=== PATIENT | male | born 1945 | race Caucasian/White ===

== ENCOUNTER 2024-10-19 16:42 | Emergency (ER) | payer MEDICARE, SELFPAY ==
[2024-10-19] VITALS (22 sets, daily range): BP systolic 107–146; BP diastolic 57–101; PULSE 67–96; RESP 12–20; O2SAT 93–99
--- NOTE | ~2024-10-19 | XR_ITS ---
XR chest 1V portable Ordering provider: Juma Mosher MD History: 79 years Male with . cough/ syncope episode . Comparison: None. FINDINGS: MEDIASTINUM: The cardiac silhouette is not enlarged. LUNGS: No infiltrates, effusions or pneumothorax. OTHER: No free air under the diaphragm. IMPRESSION: No acute cardiopulmonary pathology. Reviewed, dictated and finalized at location A.
--- NOTE | 2024-10-19 17:07 | ED.GENADULT ---
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 Took a nausea medicine just before going to [facility]ecost[employer] today and also took a oxycodone 5 before pentecost[facility]ism while in [employer]ecost[employer] she felt weak warm nauseated felt like he had to sit down and then he passed out the next thing he remembered there are people all around him. Denies any urinary fecal incontinence or any seizure. He denies any injury evidently he was sitting at the time. Denies any pain shortness of breath. Denies problems voiding or stooling bleeding or bruising rash or itching swelling lumps or bumps shortness of breath. He said he has had a cold for the last week with a runny nose and a nonproductive cough he has had decreased appetite he says his doctor has been wanting to him to drink a gal of water a day but he has only had about half that amount. He has had decreased appetite he did eat breakfast today. he takes the oxycodone for back pain he had a little aching in his neck before he passed out. Denies any headache. Denies any other complaints. Past medical history prostate cancer with metastases hypertension diabetes (no history of heart lung kidney liver thyroid diseases or anemia. ) Related Data Allergies Allergy/AdvReac Type Severity Reaction Status Date / Time nickel Allergy Unknown Unknown Verified 10/19/24 16:47 Chlorine Allergy Unknown Unknown Uncoded 10/19/24 16:47 Review of Systems Review of Systems: All systems reviewed & are unremarkable except as noted in HPI and below Exam Narrative: White male patient with no apparent distress.? Head normocephalic, atraumatic.? Eyes conjunctiva pink sclera nonicteric.? Extraocular movements are intact.? Ears externally normal.? Oropharynx is clear with moist mucous membranes without exudates.? Neck is supple nontender no lymphadenopathy.? Back is nontender.? Lungs are clear.? Heart is regular rate and rhythm without murmurs gallops or rubs.? Chest wall nontender. Abdomen is soft and nontender no hepatosplenomegaly or masses no CVA tenderness no abdominal bruits.? Extremities no cyanosis clubbing or edema.? Skin is warm and dry without rashes or lesions.? Neurological patient is alert and oriented x4.? Motor and sensory grossly intact.? Gait is normal. Course Vital Signs Vital signs: Vital Signs Pulse Oximetry 99 10/19/24 16:42 Oxygen Delivery Room Air 10/19/24 16:42 Pulse Rate 89 10/19/24 18:46 Respiratory Rate 18 10/19/24 18:46 Blood Pressure 129/73 10/19/24 18:46 Pulse Oximetry 96 10/19/24 18:46 Oxygen Delivery Room Air 10/19/24 16:42 Medical Decision Making MDM Narrative Medical decision making narrative: Patient was placed in Room # 3 by EMS History and physical was performed. Independent Historian: EMS External Source Review: Differential Dx includes but not limited to: acute coronary syndrome arrhythmia vagal syncope electrolyte imbalance anemia Medications were Reviewed: Independently Interpreted by me: EKG shows sinus rhythm with occasional supraventricular premature complex no abnormal ST T wave abnormalities impression borderline EKG is independently interpreted by me. Meds, treatment, ED course: Unable to give Normal saline 1 L bolus Zofran 4 mg IV, attempts made unsuccessful. Also attempt made to get labs x3 patient refused those as well. Orthostatics showed systolic blood pressure dropped 20 points from lying to sitting but his pulse went down denies any dizziness. Social Situation Impacting Patients Care: prostate cancer with metastases recently started chemotherapy 4 days ago Shared decision Making: evaluation was discussed all questions were asked and answered patient agreed with the plan. patient feels better at discharge is encouraged uses Zofran anti nausea medicines more often and to push fluids at home return if he gets worse or develops any new symptoms. He also was encouraged to get a port for IV access. Discussed with Dr. BLACK DIAGNOSIS: Syncope dehydration DISPOSITION: discharge home CONDITION AT DISCHARGE: stable Vital Signs Vital Signs: Vital Signs Pulse Oximetry 99 10/19/24 16:42 Oxygen Delivery Room Air 10/19/24 16:42 Pulse Rate 89 10/19/24 18:46 Respiratory Rate 18 10/19/24 18:46 Blood Pressure 129/73 10/19/24 18:46 Pulse Oximetry 96 10/19/24 18:46 Oxygen Delivery Room Air 10/19/24 16:42 Lab Data Labs: Lab Results 10/19/24 Range/Units 17:07 Influenza A (RT-PCR) Negative (Negative) Influenza B (RT-PCR) Negative (Negative) RSV (RT-PCR) Negative (Negative) SARS-CoV-2 RNA (RT-PCR) Negative (Negative) Discharge Plan Discharge Clinical Impression: Syncope due to orthostatic hypotension, Dehydration Patient Disposition: Home Condition: Stable Instructions: Dehydration (ED), Syncope (ED) Additional Instructions: increase your fluids by mouth as discussed use your Zofran and her anti nausea medicine more often. Follow-up with your primary care provider next week. Recommend getting a port as previously discussed with your oncologist. Return if you get worse or develops any new symptoms. Patient Language: Congolese Follow-up/Referrals: Juan,J Luis Galaviz MD [Primary Care Provider] - Time of Disposition: 19:01
--- NOTE | 2024-10-19 17:08 | ECG_ITS ---
Test Date: 2024-10-19 17:19:58 Measurements Intervals Leroy Rate: 87 P: 66 [place]: 136 QRS: 63 QRSD: 84 T: 65 QT: 355 QTc: 428 Interpretive Statements SINUS RHYTHM WITH OCCASIONAL SUPRAVENTRICULAR PREMATURE COMPLEXES BASELINE ARTIFACT- II, III, AVL, AVF, V3 BORDERLINE ECG No previous ECG available for comparison Electronically Signed On 10-19-2024 18:51:48 CDT by José Antonio Kimble D.O.
--- NOTE | 2024-10-19 17:24 | PC.NURSE ---
covid culture sent to lab
--- NOTE | 2024-10-19 17:41 | PC.NURSE ---
Patient was stuck 3 times by EMS for IV attempt, 2x by RN. Patient refuses anymore IV attempts, ERP made aware. Patient provided water to drink per ERP request.
--- OUTSIDE RECORDS SUMMARY | 2024-10-19 17:43 | XMS_ITS | Encounter Summary ---
Author Organization [facility] Address [address] [place] [address] Phone Care Team Providers Care Press Officer Name Role Phone Sukhdeep Martinez MD Primary Care Provider [phone] Stefano Hernandez MD Unavailable [phone] Pardeep Tapia MD Unavailable + [phone] Sidney Arias MD Unavailable [phone] Raad Ahuja MD Unavailable Encounter Details Date Type Department Care Team (Late st Contact Info) Description 10/16/2024 Orders Only [facility] Oncology [address] [place] [id number] Stefano Hernandez MD [address] [facility] [address] [place] [address] Social History Tobacco Use Types Packs/Day Years Used Date Smoking Tobacco: Former Cigarettes 2 25 S tarted: 1967 Passive Smoke Exposure: Past Smokeless Tobacco: Never [facility] Utilities Answer Date Recorded In the past 12 months has [employer], gas, oil, or water company threatened to shut off services in your home? No 09/09/2024 Social Connection and Isolation Panel [NHANES] A nswer Date Recorded In a typical week, how many times do you talk on the phone with family, friends, or neighbors? Three times a week 09/09/2024 How often do you get togethe r with friends or relatives? Three times a week 09/09/2024 How often do you attend chur ch or mosque services? Never 09/09/2024 Do you belong to any clubs o r organizations such as methodist groups, unions, fraternal or athletic groups, or school groups? No 09/09/2024 How often do you attend meet ings of the clubs or organizations you belong to? Never 09/09/2024 Are you , , di vorced, , never , or living with a partner? 09/09/2024 AUDIT-C Answer Date Recorded Q1: How often do you have a drink containing alcohol? Monthly or less 08/26/2024 Q2: How many drinks containi ng alcohol do you have on a typical day when you are drinking? Patient does not drink Q3: How often do you have si x or more drinks on one occasion? Never 08/26/2024 Overall Financial Resource Strain (CARDIA) Answe r Date Recorded How hard is it for you to pa y for the very basics like food, housing, medical care, and heating? Not hard at all 09/09/2024 Hunger Vital Sign Answer Date Recorded Within the past 12 months, y ou worried that your food would run out before you got the money to buy more. Never true 09/10/19 25 Within the past 12 months, t he food you bought just didn't last and you didn't have money to get more. Never true 09/09/2024 PRAPARE - Transportation Answer Date Re corded In the past 12 months, has l ack of transportation kept you from medical appointments or from getting medications? No 09/2024 In the past 12 months, has l ack of transportation kept you from meetings, work, or from getting things needed for daily living? No 09/09/2024 Housing Stability Vital Sign Answer Navin e Recorded In the last 12 months, was t here a time when you were not able to pay the mortgage or rent on time? No 09/09/2024 In the past 12 months, how m any times have you moved where you were living? 0 09/09/2024 [facility] were you homeless or living in a alf (including now)? No 09/09/2024 Personal Safety Answer Date Recorded Have you ever been in or are you currently in a harmful physical or emotional relationship or is someone making you feel afraid or unsafe? Denies 09/09/2024 Sex and Gender Information Value Date Recorded Sex Assigned at Not on file Legal Sex Male 1:04 PM [employer] Gender Identity Not on file Sexual Orientation Not on file documented as of this encounter Plan of Treatment Not on file documented as of this encounter Visit Diagnoses Not on filedocumented in this encounter Care Teams Press Officer Relationship Specialty Start Date End Date Sukhdeep Martinez MD [address] [facility] [place] [address] PCP - General Family Medicine 06/05/24 Stefano Hernandez MD [address] [facility], [facility] [address] [place] [address] Medical Oncologist/Machine Setter Medical Oncology 08/07/24 Pardeep Tapia MD [address] [facility] [address] [place] [address] Consulting Physician Urology 08/07/24 Sidney Arias MD [address] [facility] [address] [place], [place] [address] Radiation Oncologist Radiation Oncology 08/21/24 Raad Ahuja MD [address] [facility] [address] [place] [address] Consulting Physician Pain Management 09/20/24 documented as of this encounter
--- OUTSIDE RECORDS SUMMARY | 2024-10-19 17:43 | XMS_ITS | Referral Summary ---
Author Organization [place] [id number] [facility] Address [address] [place] [address] Care Team Providers Care Substation Engineer Name Role Phone Sukhdeep Martinez MD Primary Care Provider [phone] Stefano Hernandez MD Unavailable [phone] Pardeep Tapia MD Unavailable + [phone] Sidney Arias MD Unavailable [phone] Raad Ahuja MD Unavailable Encounters Date Type Department Care Team Description 10/16/2024 Orders Only [facility] Oncology [facility] [place] [address] Stefano Hernandez MD 10/16/2024 10:30 AM CDT Lab [facility] Lab [address] [place] [phone] Prostate cancer (HCC) 10/16/2024 10:45 AM CDT Infusion [facility] at [address] [place] [address] Prostate cancer (HCC) (Primary Dx) 10/16/2024 9:30 AM CDT Lab [facility] Oncology [address] [place] [phone] Prostate cancer (HCC) 10/16/2024 10:00 AM CDT Office Visit [facility] Oncology [facility] [place] [address] Stefano Hernandez MD Prostate cancer (HCC) (Primary Dx) 10/11/2024 Completion of Therapy [facility] Medical Office Building 2 Radiation Oncology [address] [place] [address] Sidney Arias MD 10/11/2024 Orders Only RAD ONC TREATMENTS Miscellaneous, Not In File 10/11/2024 OTV [facility] Medical Office Building 2 Radiation Oncology [address] [place] [address] Sidney Arias MD 10/11/2024 Orders Only RAD ONC TREATMENTS Miscellaneous, Not In File 10/11/2024 11:00 AM CDT Treatment [facility] Medical Office Building 2 Radiation Oncology [address] [place] [address] Sidney Arias MD 10/10/2024 Orders Only RAD ONC TREATMENTS Miscellaneous, Not In File 10/10/2024 11:00 AM CDT Treatment [facility] Medical Office Building 2 Radiation Oncology [address] [place] [address] 10/09/2024 Orders Only RAD ONC TREATMENTS Miscellaneous, Not In File 10/09/2024 1:00 PM CDT Treatment [facility] Medical Office Building 2 Radiation Oncology [address] [place] [address] 10/08/2024 Orders Only RAD ONC TREATMENTS Miscellaneous, Not In File 10/08/2024 11:00 AM CDT Treatment [facility] Medical Office Building 2 Radiation Oncology [address] [place] [address] 10/07/2024 Orders Only RAD ONC TREATMENTS Miscellaneous, Not In File 10/07/2024 11:15 AM CDT Treatment [facility] Medical Office Building 2 Radiation Oncology [address] [place] [address] Sidney Arias MD 10/07/2024 11:00 AM CDT Treatment [facility] Medical Office Building 2 Radiation Oncology [address] [place] [address] Sidney Arias MD 10/04/2024 Telephone [facility] Oncology [address] [place] [phone] Smita Taylor, YAMINI 10/03/2024 Telephone [facility] Oncology [address] [place] [phone] Smita Taylor, YAMINI 10/02/2024 7:05 PM CDT Treatment [facility] Medical Office Building 2 Radiation Oncology [address] [place] [address] 10/02/2024 Telephone [facility] Oncology [address] [place] [phone] Smita Taylor, YAMINI 10/01/2024 10:00 AM CDT Treatment [facility] Medical Office Building 2 Radiation Oncology [address] [place] [address] Sidney Arias MD 10/01/2024 9:30 AM CDT Office Visit [facility] Medical Office Building 2 Radiation Oncology [address] [place] [address] Sidney Arias MD Malignant neoplasm of prostate (HCC) (Primary Dx) 09/23/[address] [facility] [place] 2 Radiation Oncology [address] [place] [address] Sandy Tate RN 09/20/2024 Telephone [facility] Medical Office [facility] 2 Radiation Oncology [address] [place] [address] Kenna Pineda, ARRT 09/20/2024 8:10 AM CDT - 09/20/2024 11:59 PM CDT Hospital Encounter [facility] Pain [address] [address] Raad Ahuja MD Closed wedge compression fracture of T7 vertebra with routine healing (Primary Dx); Closed compression fracture of L2 lumbar vertebra, with routine healing, subsequent encounter Discharge Disposition: Discharge to home or self care 09/18/2024 Orders Only [facility] [place] [address] Stefano Hernandez MD 09/18/2024 9:45 AM CDT Lab [facility] Lab [address] [place] [address] Prostate cancer (HCC) 09/18/2024 9:30 AM CDT Lab [facility] Oncology [facility] [place] [phone] Metastasis to bone (HCC); Prostate cancer (HCC) 09/18/2024 11:30 AM CDT Infusion [facility] [place] [address] [place] [address] Prostate cancer (HCC) (Primary Dx) 09/18/2024 10:00 AM CDT Office Visit [facility] Oncology [facility] [place] [address] Stefano Hernandez MD Metastasis to bone (HCC) (Primary Dx); Prostate cancer (HCC) 09/12/2024 Telephone [facility] Oncology [address] [place] [phone] Millie Kim RMA When to start Nubeqa 09/08/2024 7:53 PM REINFORCEMENT MAKER - 09/11/2024 11:35 AM REINFORCEMENT MAKER Hospital Encounter [address] [address] Felipa Murphy DO Winston, Jared Todd, MD Elizondo, Daniel Elias, MD Chronic midline thoracic back pain (Primary Dx); Closed fracture of seventh thoracic vertebra, unspecified fracture morphology, initial encounter (HCC); Urinary tract infection without hematuria, site unspecified; Diagnosis unknown Discharge Disposition: Discharge to home or self care 09/10/2024 3:31 PM REINFORCEMENT MAKER Anesthesia Event [facility] OR [address] [place] [address] Miguel Angel Henderson MD Jobe, Jennifer R., CRNA 09/10/2024 3:30 PM REINFORCEMENT MAKER - 09/10/2024 5:05 PM REINFORCEMENT MAKER Surgery [facility] OR [address] [place] [address] Raad Ahuja MD KYPHOPLASTY - THORACIC 7 and LUMBAR 2, and Biopsy 09/09/2024 Telephone [facility] Oncology [address] [place] [phone] Azeem Bennett, [facility] 09/06/2024 9:30 AM REINFORCEMENT MAKER Consult [facility] Medical Office Building 2 Radiation Oncology [address] [place] [address] Sidney Arias MD Malignant neoplasm of prostate (HCC) 09/05/2024 Telephone [facility] Medical Office Building 2 Radiation Oncology [address] [place] [address] Julianne Chapin MA 09/05/2024 6:54 AM REINFORCEMENT MAKER - 09/05/2024 11:59 PM REINFORCEMENT MAKER Hospital Encounter [facility] Imaging and Radiology [address] [place], [place] [phone] Prostate cancer (HCC) Discharge Disposition: Discharge to home or self care 09/05/2024 12:00 PM REINFORCEMENT MAKER - 09/05/2024 11:59 PM REINFORCEMENT MAKER Hospital Encounter [facility] Nuclear Medicine [address] [place], [place] [phone] Stefano Hernandez MD Discharge Disposition: Discharge to home or self care 09/05/2024 9:00 AM REINFORCEMENT MAKER - 09/05/2024 11:59 PM REINFORCEMENT MAKER Hospital Encounter [facility] Nuclear Medicine [address] [place], [place] [phone] Prostate cancer (HCC) Discharge Disposition: Discharge to home or self care 08/30/2024 Telephone [facility] Oncology [address] [place] [phone] Smita Taylor RN 08/26/2024 9:45 AM REINFORCEMENT MAKER Lab [address] [address] Prostate cancer (HCC) 08/26/2024 Orders Only [facility] Oncology [address] [place] [phone] Stefano Hernandez MD 08/26/2024 8:00 AM REINFORCEMENT MAKER Office Visit [facility] Oncology [address] [place] [phone] Stefano Hernandez MD Prostate cancer (HCC) (Primary Dx); Metastasis to bone (HCC) 08/22/2024 Telephone [facility] Surgery [address] [place] [address] Darling Mckeon EMT 08/20/2024 Telephone [facility] Surgery [facility] [address] [place] [address] Trupti Ma 08/20/2024 Telephone [facility] Surgery [address] [place] [address] Leanna Miller 08/19/2024 11:20 AM REINFORCEMENT MAKER Lab [facility] Medical Office Building [address] [place] [address] Prostate cancer (HCC) 08/19/2024 Telephone [facility] Oncology [address] [place] [address] Floor [address] [place] [address] Julianne Talley 08/19/2024 10:40 AM REINFORCEMENT MAKER Office Visit [facility] Surgery [address] [place] [address] [address] [place] [address] Pardeep Tapia MD Prostate cancer (HCC) (Primary Dx) 08/09/2024 11:38 AM REINFORCEMENT MAKER - 08/09/2024 11:59 PM REINFORCEMENT MAKER Hospital Encounter [facility] - Imaging [address] [place] [address] Prostate mass; Elevated PSA Discharge Disposition: Discharge to home or self care 08/06/2024 Telephone [facility] Oncology [facility] Floor [address] [place] [address] Julianne Talley 07/30/2024 7:20 AM REINFORCEMENT MAKER - 07/30/2024 11:59 PM REINFORCEMENT MAKER Hospital Encounter [address] [address] Bladder mass Discharge Disposition: Discharge to home or self care 07/30/2024 7:30 AM REINFORCEMENT MAKER - 07/30/2024 9:15 AM REINFORCEMENT MAKER Surgery [facility] OR [address] [place] [address] [place] [address] Pardeep Tapia MD CYSTOSCOPY - TRANSURETHRAL RESECTION BLADDER TUMOR 07/30/2024 7:33 AM REINFORCEMENT MAKER Anesthesia [place] [facility] [place] [address] [place] [address] Kareem Rees MD Taylor-White, Carlotta A., NP 07/30/2024 5:33 AM REINFORCEMENT MAKER - 07/30/2024 1:50 PM REINFORCEMENT MAKER Hospital Encounter [facility] OR [address] [place] [address] Pardeep Tapia MD Prostate mass (Primary Dx); Bladder tumor; Elevated PSA Discharge Disposition: Discharge to home or self care 07/26/2024 Telephone [facility] Surgery [address] [place] [address] Darling Mckeon EMT from Last 3 Months Allergies Active Allergy Reactions Criticality Noted Date Comments Chlorine Hives Medium 07/30/2024 Nickel Rash Medium 07/30/2024 Medications amLODIPine (NORVASC) 5 mg tablet Take 1 tablet (5 mg total) by mouth daily 4 Active dutasteride (AVODART) 0.5 mg capsule Take 1 capsule (0.5 mg total) by mouth daily 4 Active losartan (COZAAR) 100 mg tablet Take 1 tablet (100 mg total) by mouth daily 4 Active metFORMIN (GLUCOPHAGE) 1,000 mg tablet Take 1 tablet (1,000 mg total) by mouth 2 (two) times a day 4 Active pravastatin (PRAVACHOL) 40 mg tablet Take 1 tablet (40 mg total) by mouth nightly 4 Active Januvia 100 mg tablet Take 1 tablet (100 mg total) by mouth daily 4 Active tamsulosin (FLOMAX) 0.4 mg extended release capsule Take 1 capsule (0.4 mg total) by mouth daily 4 Active timolol (TIMOPTIC) 0.5 % ophthalmic solution Administer 1 drop into both eyes daily 4 Active multivitamin with minerals tablet Take 1 tablet by mouth daily Active UNABLE TO FIND Take 1 each by mouth daily 1Med Name: Formulated once daily ultra probiotics 90 billion Active cholecalcifero l (VITAMIN D-3) 5,000 unit tablet Take 1 tablet (5,000 Units total) by mouth daily Active dexAMETHasone (DECADRON) 4 mg tabletIndicati ons:Prostate cancer (HCC) Take 2 tablets (8 mg total) by mouth 6 hours prior to chemotherapy and 2 tablets 8 hours after chemotherapy 30 tablet 5 Active darolutamide (NUBEQA) 300 mg tabletIndicati ons:Prostate cancer (HCC) Take 2 tablets (600 mg total) by mouth 2 (two) times a day Swallow whole. Take with food. 120 tablet 3 5 Active oxyCODONE (ROXICODONE) 5 mg immediate release tabletIndicati ons:Prostate cancer (HCC),Cancer related pain Take 1 tablet (5 mg total) by mouth every 6 (six) hours as needed for pain 120 tablet 5 Active calcium carbonate (OS-NIKKI) 1,500 mg (600 mg elemental) tablet Take 2 tablets (3,000 mg total) by mouth Active bicalutamide (CASODEX) 50 mg tabletIndicati ons:Prostate cancer (HCC) Take 1 tablet (50 mg total) by mouth daily 30 tablet 5 09/22/19 25 Active Problems Problem Noted Date Diagnosed Date Thoracic compression fracture, sequela Cancer associated pain 09/09/2024 Urinary tract infection without hematuria 2024 Closed fracture of seventh thoracic vertebra 09/2024 Chronic midline thoracic back pain 09/09/2024 Hypocalcemia 09/09/2024 Hypercalcemia 09/09/2024 Hyponatremia 09/09/2024 Thrombocytosis 09/09/2024 Stage 2 hypertension 09/09/2024 History of diabetes mellitus 09/09/2024 Normocytic hypochromic anemia 09/09/2024 Anemia of chronic disease 09/09/2024 History of prostate cancer 09/09/2024 Pathologic compression fracture of thoracic vert ebra 09/09/2024 Prostate cancer 08/26/2024 Cancer Staging:Clinical:Stage IVB(cM1c, PSA: 19.4, Grade Group: 5) - Signed by Sidney Arias MD on 09/06/2024 Metastasis to bone 08/26/2024 Prostate mass 07/30/2024 Bladder tumor 06/24/2024 Immunizations Immunization Administration Dates Next Due Influenza, Quadrivalent, Hig h Dose, Preservative Free, Intrr 05/31/2023,05/19/2021 Influenza, Quadrivalent, Split, Intramuscular Influenza, Trivalent, High D ose, Split, Preservative Free, Intramuscular 06/19/2019 Pneumococcal Conjugate PCV 13 06/19/2019 Pneumococcal Polysaccharide PPV23 09/15/2017 ZOSTER Recombinant 02/20/2023 Social History Tobacco Use Types Packs/Day Years Used Date Smoking Tobacco: Former Cigarettes 2 25 S tarted: 1967 Passive Smoke Exposure: Past Smokeless Tobacco: Never Tobacco Cessation:Counseling Given: Not Answered [facility] Utilities Answer Date Recorded In the past 12 months has th e [employer], gas, oil, or water [employer] threatened to shut off services in your [...] week 09/09/2024 How often do you attend [facility] ch or zoroastrianism services? Never 09/09/2024 Do you belong to any clubs o r organizations such as baptist groups, unions, fraternal or athletic groups, or [...] any time in the past 12 m [facility], were you homeless or living in a senior care (including now)? No 09/09/2024 Personal Safety Answer Date Recorded Have you ever been in or are you currently in a harmful physical or emotional relationship or is someone making you feel afraid or unsafe? Denies 09/09/2024 Sex and Gender Information Value Date Recorded Sex Assigned at Not on file Legal Sex Male 1:04 PM REINFORCEMENT MAKER Gender Identity Not on file Sexual Orientation Not on file Last Filed Vital Signs Vital Sign Reading Time Taken Comments Blood Pressure 151/78 10/16/2024 10:10 AM CDT Pulse 72 10/16/2024 10:10 AM CDT Temperature 36.3 C (97.4 F) 10/16/2024 10:10 AM CDT Respiratory Rate 18 10/16/2024 10:10 AM CDT Oxygen Saturation 97% 10/16/2024 10:10 AM CDT Inhaled Oxygen Concentration - - Weight 74 kg (163 lb 3.2 oz) 10/16/2024 11:09 AM CDT Height 169 cm (5' 6.54 ) 10/16/2024 11:09 AM CDT Body Mass Index 25.92 10/16/2024 11:09 AM CDT Plan of Treatment Not on file Medical Devices Implanted Type Area Brickmason Helper Device Identifier Shelf Expiration Date Model / Serial / Lot [employer] Vertaplex Hv Autoplex Without Needle Delivery System Kit Bone [id number] - [id number] Implanted:Qty: 1 on 09/10/2024 by Raad Ahuja MD at [facility] N/A: Thoracic- Lumbar Spine [employer] 10/08/2025 [id number] / / [id number] Description:Lumbar 2 and tho racic 7 Explanted Type Area Brickmason Helper Device Identifier Shelf Expiration Date Model / Serial / Lot [employer] Avamax Od13 [place] L10 Mm Balloon Tray Bone Cement [id number] - [id number] Explanted:Qty : 1 on 09/10/2024 by Raad Ahuja MD at [facility] N/A: Spine Lumbar [employer] [id number] 05/30/2025 [id number] / / [id number] [employer] Avamax Od13 Ga L10 Mm Balloon Tray Bone Cement [id number] - [id number] Explanted:Qty : 1 on 09/10/2024 by Raad Ahuja MD at [facility] N/A: Spine Lumbar [employer] [id number] 05/30/2025 [id number] / / [id number] Procedures Procedure Name Priority Date/Time Associated Diagnosis Comments EGFR Routine 10/16/2024 10:02 AM CDT Prostate cancer (HCC) DIFFERENTIAL AUTO Routine 10/16/2024 10: 02 AM CDT Prostate cancer (HCC) CBC WITH AUTO DIFFERENTIAL Routine 10/16/2024 10:02 AM CDT Prostate cancer (HCC) COMPREHENSIVE METABOLIC PANEL Routine 10/16/2024 10:02 AM CDT Prostate cancer (HCC) PSA DIAGNOSTIC Routine 10/16/2024 10:02 AM CDT Prostate cancer (HCC) RAD ONC ARIA COURSE SUMMARY 10/11/2024 3:53 PM CDT RAD ONC ARIA SESSION SUMMARY 10/11/2024 11:03 AM CDT RAD ONC ARIA SESSION SUMMARY 10/10/2024 11:17 AM CDT RAD ONC ARIA SESSION SUMMARY 10/09/2024 1:10 PM CDT RAD ONC ARIA SESSION SUMMARY 10/08/2024 11:03 AM CDT RAD ONC ARIA SESSION SUMMARY 10/07/2024 11:21 AM CDT EGFR STAT 09/18/2024 9:47 AM CDT Prostate cancer (HCC) DIFFERENTIAL AUTO Routine 09/18/2024 9:4 7 AM CDT Prostate cancer (HCC) COMPREHENSIVE METABOLIC PANEL STAT 09/18/2024 9:47 AM CDT Prostate cancer (HCC) PSA DIAGNOSTIC Routine 09/18/2024 9:47 AM CDT Prostate cancer (HCC) CBC WITH AUTO DIFFERENTIAL Routine 09/18/2024 9:47 AM CDT Prostate cancer (HCC) POCT GLUCOSE DEVICE Routine 09/10/2024 5 :59 PM REINFORCEMENT MAKER FL FLUOROSCOPY < 1 HOUR IP Routine 09/10/2024 5:45 PM REINFORCEMENT MAKER SURGICAL PATHOLOGY Routine 09/10/2024 4: 47 PM REINFORCEMENT MAKER Diagnosis unknown NC AN PROCEDURE PLACEHOLDER Routine 09/10/2024 4:15 PM REINFORCEMENT MAKER NC AN ELECTIVE ENDOTRACHEAL AIRWAY Routine 09/10/2024 4:15 PM REINFORCEMENT MAKER KYPHOPLASTY 09/10/2024 3:36 PM REINFORCEMENT MAKER POCT GLUCOSE DEVICE Routine 09/10/2024 3 :15 PM REINFORCEMENT MAKER MRI LUMBAR SPINE WO CONTRAST IP Routine 09/10/2024 1:49 PM REINFORCEMENT MAKER POCT GLUCOSE DEVICE Routine 09/10/2024 1 1:40 AM REINFORCEMENT MAKER INFLUENZA A/B, RSV, AND COVID-19 PCR STAT 09/10/2024 9:48 AM REINFORCEMENT MAKER POCT GLUCOSE DEVICE Routine 09/09/2024 7 :56 PM REINFORCEMENT MAKER PHOSPHORUS Routine 09/09/2024 6:46 PM REINFORCEMENT MAKER MAGNESIUM Routine 09/09/2024 6:[address] LUMBAR SPINE WO CONTRAST IP Routine 09/09/2024 6:[address] THORACIC SPINE WO CONTRAST IP Routine 09/09/2024 6:39 PM REINFORCEMENT MAKER POCT GLUCOSE DEVICE Routine 09/09/2024 4 :37 PM REINFORCEMENT MAKER INFECTION PREVENTION KIARA AURIS PCR, SURVEILLANCE STAT 09/09/2024 2:36 PM REINFORCEMENT MAKER POCT GLUCOSE DEVICE Routine 09/09/2024 1 1:52 AM REINFORCEMENT MAKER POCT GLUCOSE DEVICE Routine 09/09/2024 7 :57 AM REINFORCEMENT MAKER ECG 12-LEAD STAT 09/09/2024 7:26 AM REINFORCEMENT MAKER EGFR Routine 09/09/2024 6:10 AM REINFORCEMENT MAKER DIFFERENTIAL AUTO Routine 09/09/2024 6:1 0 AM REINFORCEMENT MAKER BASIC METABOLIC PANEL Routine 09/09/2024 6:10 AM REINFORCEMENT MAKER CBC WITH AUTO DIFFERENTIAL Routine 09/09/2024 6:10 AM REINFORCEMENT MAKER TROPONIN T HIGH-SENSITIVITY 4-HR Timed 09/09/2024 12:13 AM REINFORCEMENT MAKER TROPONIN T HIGH-SENSITIVITY 2-HOUR Timed 09/08/2024 10:10 PM REINFORCEMENT MAKER URINALYSIS, MICROSCOPIC ONLY STAT 09/08/2024 8:31 PM REINFORCEMENT MAKER URINE CULTURE STAT 09/08/2024 8:31 PM REINFORCEMENT MAKER URINALYSIS AND REFLEX TO MICROSCOPIC AND CULTURE STAT 09/08/2024 8:31 PM REINFORCEMENT MAKER EGFR STAT 09/08/2024 8:01 PM REINFORCEMENT MAKER DIFFERENTIAL AUTO STAT 09/08/2024 8:0 1 PM REINFORCEMENT MAKER TROPONIN T HIGH-SENSITIVITY SERIES (BASELINE, 2HR, 4HR, 6HR) STAT 09/08/2024 8:01 PM REINFORCEMENT MAKER COMPREHENSIVE METABOLIC PANEL STAT 09/08/2024 8:01 PM REINFORCEMENT MAKER CBC WITH AUTO DIFFERENTIAL STAT 09/08/2024 8:01 PM REINFORCEMENT MAKER NM BONE IMAGING WHOLE BODY Schedule Routine, Read Routine (OP Routine) 09/05/2024 2:44 PM REINFORCEMENT MAKER Prostate cancer (HCC) MRI THORACIC SPINE W WO CONTRAST Schedule Routine, Read Routine (OP Routine) 09/05/2024 9:42 AM REINFORCEMENT MAKER Prostate cancer (HCC) EGFR Routine 08/26/2024 10:56 AM REINFORCEMENT MAKER Prostate cancer (HCC) DIFFERENTIAL AUTO Routine 08/26/2024 10: 56 AM REINFORCEMENT MAKER Prostate cancer (HCC) CBC WITH AUTO DIFFERENTIAL Routine 08/26/2024 10:56 AM REINFORCEMENT MAKER Prostate cancer (HCC) COMPREHENSIVE METABOLIC PANEL Routine 08/26/2024 10:56 AM REINFORCEMENT MAKER Prostate cancer (HCC) PSA DIAGNOSTIC Routine 08/26/2024 10:56 AM REINFORCEMENT MAKER Prostate cancer (HCC) TOTAL TESTOSTERONE Routine 08/26/2024 10 :56 AM REINFORCEMENT MAKER Prostate cancer (HCC) TOTAL TESTOSTERONE Routine 08/19/2024 11 :56 AM REINFORCEMENT MAKER Prostate cancer (HCC) PET/CT PROSTATE CANCER PSMA SKULL TO THIGH Schedule Routine, Read Routine (OP Routine) 08/09/2024 1:29 PM REINFORCEMENT MAKER Prostate mass Elevated PSA US GUIDANCE INTRAOPERATIVE Schedule Routine, Read Routine (OP Routine) 07/30/2024 8:53 AM REINFORCEMENT MAKER Bladder mass POCT GLUCOSE DEVICE Routine 07/30/2024 8 :48 AM REINFORCEMENT MAKER SURGICAL PATHOLOGY Routine 07/30/2024 8: 21 AM REINFORCEMENT MAKER Bladder tumor NC AN PROCEDURE PLACEHOLDER Routine 07/30/2024 7:50 AM REINFORCEMENT MAKER NC AN ELECTIVE ENDOTRACHEAL AIRWAY Routine 07/30/2024 7:50 AM REINFORCEMENT MAKER TRANSANAL BIOPSY - PROSTATE 07/30/2024 7:33 AM REINFORCEMENT MAKER Bladder tumor CYSTOSCOPY - TRANSURETHRAL RESECTION BLADDER TUMOR 07/30/2024 7:33 AM REINFORCEMENT MAKER Bladder tumor POCT GLUCOSE DEVICE Routine 07/30/2024 6 :22 AM REINFORCEMENT MAKER from Last 3 Months Results * eGFR (10/16/2024 10:02 AM CDT) eGFR >90 >=60 mL/min/1. 73 m2 Comment: Interpretive Data Reference Interval Normal >/= 90 mL/min/1.73m2 Mildly decreased* 60 - 89 mL/min/1.73m2 Mildly to moderately decreased 45 - 59 mL/min/1.73m2 Moderately to severely decreased 30 - 44 mL/min/1.73m2 Severely decreased 15 - 29 mL/min/1.73m2 Kidney Failure < 15 mL/min/1.73m2 *Relative to young adult level Estimated glomerular filtration rate is determined by the 2020 CKD-EPI equation recommended by the National Kidney Foundation (A Unifying Approach to GFR Estimation: Recommendations of the NKF-ASK Task Force on Reassessing the Inclusion of Race in Diagnosing Kidney Disease, JASN 2020). The CKD-EPI equation should not be used for patients with unstable renal function and has not been validated in children and those over 70. Current interpretive data was last reviewed 2021. Testing performed by: [facility] [place] [address] Blood 10/16/2024 10:0 2 AM CDT 10/16/2024 10:02 AM CDT us Stefano Hernandez MD LAB BLOOD ORDERABLES Final Result [facility] [id number] [place] [address] * Differential, auto (10/16/2024 10:02 AM CDT) Neutrophil abs 4.10 1.50 - 6.50 K/cumm Comment:Testing performed by : [facility] [place] [address] Imm gran abs 0.02 0.00 - 0.10 K/cumm [facility] Comment:Testing performed by : [facility] [place] [address] Lymphocyte abs 0.90 0.80 - 3.30 K[facility]cumm [facility] performed by : [facility] [place] [address] Monocyte abs 0.21 0.20 - 0.80 K/cumm [facility] Comment:Testing performed by : [facility] [place] [address] Eosinophil abs 0.05 0.00 - 0.50 K/cumm [facility] Comment:Testing performed by : [facility] [place] [address] Basophil abs 0.03 0.00 - 0.10 K/cumm [facility] CH Comment:Testing performed by : [facility] [place] [address] Neutrophil pct 77.2 % CERNER CH Comment: Interpretive Data Percent cell count reference ranges are not reported, since discordance with absolute values may lead to misinterpretation of CBC data. Current Interpretive Data was last revised on 2017. Testing performed by: [facility] [place] [address] Imm gran pct 0.4 % CERNER CH Comment: Interpretive Data Percent cell count reference ranges are not reported, since discordance with absolute values may lead to misinterpretation of CBC data. Current Interpretive Data was last revised on 2017. Testing performed by: [facility] [place] [address] Lymphocyte pct 16.9 % CERNER CH Comment: Interpretive Data Percent cell count reference ranges are not reported, since discordance with absolute values may lead to misinterpretation of CBC data. Current Interpretive Data was last revised on 2017. Testing performed by: [facility] [place] [address] Monocyte pct 4.0 % CERNER Comment: Interpretive Data Percent cell count reference ranges are not reported, since discordance with absolute values may lead to misinterpretation of CBC data. Current Interpretive Data was last revised on 2017. Testing performed by: [facility] [place] [address] Eosinophil pct 0.9 % CERNER Comment: Interpretive Data Percent cell count reference ranges are not reported, since discordance with absolute values may lead to misinterpretation of CBC data. Current Interpretive Data was last revised on 2017. Testing performed by: [facility] [place] [address] Basophil pct 0.6 % CERNER Comment: Interpretive Data Percent cell count reference ranges are not reported, since discordance with absolute values may lead to misinterpretation of CBC data. Current Interpretive Data was last revised on 2017. Testing performed by: [facility] [place] [address] Blood 10/16/2024 10:0 2 AM CDT 10/16/2024 10:02 AM CDT us Stefano Hernandez MD LAB BLOOD ORDERABLES Final Result [facility] [id number] Department of Laboratories [place] [id number] * (ABNORMAL) CBC with auto differential (10/16/2024 10:02 AM CDT) WBC 5.31 3.80 - 9.90 K/cumm Comment:Testing performed by : [facility] [place] [address] Hgb 12.1(L) 13.0 - 17.5 g/dL CERNER CH Comment:Testing performed by : [facility] [place] [address] Hct 38.3(L) 38.9 - 50.3 % CERNER CH Comment:Testing performed by : [facility] [place] [address] Plt 300 150 - 400 K/cumm CERNER CH Comment:Testing performed by : [facility] [place] [address] MPV 9.1 9.1 - 12.3 fL CERNER CH Comment:Testing performed by : [facility] [place] [address] RBC 4.66 4.30 - 5.80 M/cumm CERNER CH Comment:Testing performed by : [facility] [place] [address] MCV 82.2 81.3 - 96.4 fL CERNER CH Comment:Testing performed by : [facility] [place] [address] MCH 26.0(L) 27.1 - 33.3 pg CERNER CH Comment:Testing performed by : [facility] [place] [address] MCHC 31.6(L) 32.3 - 35.7 g/dL CERNER CH Comment:Testing performed by : [facility] [place] [address] RDW CV 17.4(H) 11.1 - 14.9 % CERNER CH Comment:Testing performed by : [facility] [place] [address] RDW SD 51.9(H) 35.7 - 48.1 fL AMNA RODRÍGUEZ Comment:Testing performed by : [facility] [place] [address] NRBC abs 0.00 0.00 - 0.01 K/cumm AMNA RODRÍGUEZ Comment:Testing performed by : [facility] [place] [address] ANC Prelim 4.10 1.50 - 6.50 K/cumm AMNA Comment: Interpretive Data The rapid ANC is a preliminary automated count and may vary from the final ANC (Neut Abs) reported in the WBC differential that follows. Current interpretive data was last revised 2024. Testing performed by: [facility] [place] [address] Blood 10/16/2024 10:0 2 AM CDT 10/16/2024 10:02 AM CDT Stefano Hernandez MD LAB BLOOD ORDERABLES Final Result Performing Organization Address [facility] de Phone Number [facility] [address] [place] [place] [address] * PSA diagnostic (10/16/2024 10:02 AM CDT) PSA-Total 0.97 <=6.20 ng/mL Comment: Interpretive Data AGE SEX REFERENCE INTERVAL 0 minutes-150 years Female None 0 minutes-49 years Male None 50-59 years Male 0-3.90 60-69 years Male 0-5.40 70-79 years Male 0-6.20 80-150 years Male 0-6.20 The Luz PSA Total assay procedure was used. Results from different manufacturers or methods may not be comparable. Serial testing should be performed using the same method. Current interpretive data last revised 21. Blood 10/16/2024 10:0 2 AM CDT 10/16/2024 11:02 AM CDT Stefano Hernandez MD LAB BLOOD ORDERABLES Final Result Performing Organization Address [facility] Co de Phone Number [facility] [address] [place] [address] * (ABNORMAL) Comprehensive metabolic panel (10/16/2024 10:02 AM CDT) Sodium 133(L) 135 - 145 mmol/L Comment:Testing performed by : [facility] [place] [address] Potassium, pl 5.2(H) 3.3 - 4.9 mmol/L CERNER CH Comment:Testing performed by : [facility] [place] [address] Chloride 96(L) 97 - 110 mmol/L CERNER CH Comment:Testing performed by : [facility] [place] [address] CO2 26 22 - 32 mmol/L CERNER CH Comment:Testing performed by : [facility] [place] [address] Anion gap 11 2 - 15 mmol/L CERNER CH Comment:Testing performed by : [facility] [place] [address] BUN 15 6 - 25 mg/dL CERNER CH Comment:Testing performed by : [facility] [place] [address] Creatinine 0.72(L) 0.80 - 1.30 mg/dL CERNER CH Comment:Testing performed by : [facility] [place] [address] Glucose 150 70 - 199 mg/dL CERNER Comment: Interpretive Data Fasting glucose >/= 126 mg/dl is diagnostic for diabetes. Fasting is defined as no caloric intake for at least 8 hours. Fasting glucose between 100 mg/dl to 125 mg/dl is diagnostic of prediabetes. In a patient with classic symptoms of hyperglycemia or hyperglycemic crisis, a random glucose >/= 200 mg/dl is diagnostic for diabetes. In the absence of unequivocal hyperglycemia, results should be confirmed by repeat testing. The classification and Diagnosis of Diabetes Diabetes Care 202; 46: S19-S40. Current interpretive data was last revised 2022. Testing performed by: [facility] [place] [address] Calcium 10.2 8.5 - 10.3 mg/dL CERNER CH Comment:Testing performed by : [facility] [place] [address] Bilirubin, total 0.3 0.1 - 1.2 mg/dL CERNER CH Comment:Testing performed by : [facility] [place] [address] Protein, pl 7.7 6.5 - 8.5 g/dL CERNER CH Comment:Testing performed by : [facility] [place] [address] Albumin 4.4 3.5 - 5.0 g/dL CERNER CH Comment:Testing performed by : [facility] [place] [address] Alk phos 100 40 - 130 Units/L CERNER CH Comment:Testing performed by : [facility] [place] [address] ALT 11 7 - 55 Units/L CERNER CH Comment:Testing performed by : [facility] [place] [address] AST 19 10 - 50 Units/L CERNER CH Comment:Testing performed by : [facility] [place] [address] Blood 10/16/2024 10:0 2 AM CDT 10/16/2024 10:02 AM CDT us Stefano Hernandez MD LAB BLOOD ORDERABLES Final Result [facility] [address] [place] [address] * RAD ONC ARIA COURSE SUMMARY (10/11/2024 3:53 PM CDT) Course Name [id number] n_2024 ARIA Course Plan Date 10/01/2024 11:42 AM ARIA Elapsed Days 4 ARIA Treatment Start Date 10/07/2024 ARIA Treatment Site LSPINE_DPV ARIA Dose Given To Date (cGy) 2,000 ARIA Session Dosage Given (cGy) 0 ARIA Treatment Site TSPINE_DPV ARIA Dose Given To Date (cGy) 2,000 ARIA Session Dosage Given (cGy) 0 ARIA Plan ID [id number] ARIA Fractions Treated 5 ARIA Prescribed Dose Per Fraction (cGy) 400 ARIA Prescribed Total Dose (cGy) 2,000 ARIA Plan ID [id number] ARIA Fractions Treated 5 ARIA Prescribed Dose Per Fraction (cGy) 400 ARIA Prescribed Total Dose (cGy) 2,000 ARIA 10/11/2024 3:53 PM CDT us Not In File Miscellaneous RADIATION ONCOLOGY ORD ERABLES Final Result ARIA * RAD ONC ARIA SESSION SUMMARY (10/11/2024 11:03 AM CDT) Course Name [id number] n_2024 ARIA Course Plan Date 10/01/2024 11:42 AM ARIA Elapsed Days 4 ARIA Treatment Start Date 10/07/2024 ARIA Treatment Site TSPINE_DPV ARIA Dose Given To Date (cGy) 2,000 ARIA Session Dosage Given (cGy) 400 ARIA Treatment Site LSPINE_DPV ARIA Dose Given To Date (cGy) 2,000 ARIA Session Dosage Given (cGy) 400 ARIA Plan ID [id number] ARIA Fractions Treated 5 ARIA Prescribed Dose Per Fraction (cGy) 400 ARIA Prescribed Total Dose (cGy) 2,000 ARIA Plan ID [id number] ARIA Fractions Treated 5 ARIA Prescribed Dose Per Fraction (cGy) 400 ARIA Prescribed Total Dose (cGy) 2,000 ARIA 10/11/2024 11:0 3 AM CDT us Not In File Miscellaneous RADIATION ONCOLOGY ORD ERABLES Final Result ARIA * RAD ONC ARIA SESSION SUMMARY (10/10/2024 11:17 AM CDT) Course Name [id number] n_2024 ARIA Course Plan Date 10/01/2024 11:42 AM ARIA Elapsed Days 3 ARIA Treatment Start Date 10/07/2024 ARIA Treatment Site LSPINE_DPV ARIA Dose Given To Date (cGy) 1,600 ARIA Session Dosage Given (cGy) 400 ARIA Treatment Site TSPINE_DPV ARIA Dose Given To Date (cGy) 1,600 ARIA Session Dosage Given (cGy) 400 ARIA Plan ID [id number] ARIA Fractions Treated 4 ARIA Prescribed Dose Per Fraction (cGy) 400 ARIA Prescribed Total Dose (cGy) 2,000 ARIA Plan ID [id number] ARIA Fractions Treated 4 ARIA Prescribed Dose Per Fraction (cGy) 400 ARIA Prescribed Total Dose (cGy) 2,000 ARIA 10/10/2024 11:1 7 AM CDT us Not In File Miscellaneous RADIATION ONCOLOGY ORD ERABLES Final Result ARIA * RAD ONC ARIA SESSION SUMMARY (10/09/2024 1:10 PM CDT) Course Name [id number] n_2024 ARIA Course Plan Date 10/01/2024 11:42 AM ARIA Elapsed Days 2 ARIA Treatment Start Date 10/07/2024 ARIA Treatment Site LSPINE_DPV ARIA Dose Given To Date (cGy) 1,200 ARIA Session Dosage Given (cGy) 400 ARIA Treatment Site TSPINE_DPV ARIA Dose Given To Date (cGy) 1,200 ARIA Session Dosage Given (cGy) 400 ARIA Plan ID [id number] ARIA Fractions Treated 3 ARIA Prescribed Dose Per Fraction (cGy) 400 ARIA Prescribed Total Dose (cGy) 2,000 ARIA Plan ID [id number] ARIA Fractions Treated 3 ARIA Prescribed Dose Per Fraction (cGy) 400 ARIA Prescribed Total Dose (cGy) 2,000 ARIA 10/09/2024 1:1 0 PM CDT us Not In File Miscellaneous RADIATION ONCOLOGY ORD ERABLES Final Result ARIA * RAD ONC ARIA SESSION SUMMARY (10/08/2024 11:03 AM CDT) Course Name [id number] n_2024 ARIA Course Plan Date 10/01/2024 11:42 AM ARIA Elapsed Days 1 ARIA Treatment Start Date 10/07/2024 ARIA Treatment Site LSPINE_DPV ARIA Dose Given To Date (cGy) 800 ARIA Session Dosage Given (cGy) 400 ARIA Treatment Site TSPINE_DPV ARIA Dose Given To Date (cGy) 800 ARIA Session Dosage Given (cGy) 400 ARIA Plan ID [id number] ARIA Fractions Treated 2 ARIA Prescribed Dose Per Fraction (cGy) 400 ARIA Prescribed Total Dose (cGy) 2,000 ARIA Plan ID [id number] ARIA Fractions Treated 2 ARIA Prescribed Dose Per Fraction (cGy) 400 ARIA Prescribed Total Dose (cGy) 2,000 ARIA 10/08/2024 11:0 3 AM CDT us Not In File Miscellaneous RADIATION ONCOLOGY ORD ERABLES Final Result Performing Organization Address [facility] Co de Phone Number ARIA * RAD ONC ARIA SESSION SUMMARY (10/07/2024 11:21 AM CDT) Course Name [id number] n_2024 ARIA Course Plan Date 10/01/2024 11:42 AM ARIA Elapsed Days 0 ARIA Treatment Start Date 10/07/2024 ARIA Treatment Site TSPINE_DPV ARIA Dose Given To Date (cGy) 400 ARIA Session Dosage Given (cGy) 400 ARIA Treatment Site LSPINE_DPV ARIA Dose Given To Date (cGy) 400 ARIA Session Dosage Given (cGy) 400 ARIA Plan ID [id number] ARIA Fractions Treated 1 ARIA Prescribed Dose Per Fraction (cGy) 400 ARIA Prescribed Total Dose (cGy) 2,000 ARIA Plan ID [id number]_SPINE ARIA Fractions Treated 1 ARIA Prescribed Dose Per Fraction (cGy) 400 ARIA Prescribed Total Dose (cGy) 2,000 ARIA 10/07/2024 11:2 1 AM CDT us Not In File Miscellaneous RADIATION ONCOLOGY ORD ERABLES Final Result ARIA * eGFR (09/18/2024 9:47 AM CDT) eGFR >90 >=60 mL/min/1. 73 m2 Comment: Interpretive Data Reference Interval Normal >/= 90 mL/min/1.73m2 Mildly decreased* 60 - 89 mL/min/1.73m2 Mildly to moderately decreased 45 - 59 mL/min/1.73m2 Moderately to severely decreased 30 - 44 mL/min/1.73m2 Severely decreased 15 - 29 mL/min/1.73m2 Kidney Failure < 15 mL/min/1.73m2 *Relative to young adult level Estimated glomerular filtration rate is determined by the 2020 CKD-EPI equation recommended by the National Kid[employer] (A Unifying Approach to GFR Estimation: Recommendations of the NKF-ASK Task Force on Reassessing the Inclusion of Race in Diagnosing Kidney Disease, JASN 2020). The CKD-EPI equation should not be used for patients with unstable renal function and has not been validated in children and those over 70. Current interpretive data was last reviewed 2021. Testing performed by: [facility] [place] [address] Blood 09/18/2024 9:47 AM CDT 09/18/2024 9:47 AM CDT us Stefano Hernandez MD LAB BLOOD ORDERABLES Final Result [facility] [address] [place] [address] * (ABNORMAL) Differential, auto (09/18/2024 9:47 AM CDT) Pathologist [facility] Neutrophil abs 7.4(H) 1.5 - 6.5 K/cumm Comment:Testing performed by : [facility] [place] [address] Imm gran abs 0.0 0.0 - 0.1 K/cumm AMNA RODRÍGUEZ Comment:Testing performed by : [facility] [place] [address] Lymphocyte abs 1.0 0.8 - 3.3 K/cumm AMNA RODRÍGUEZ Comment:Testing performed by : [facility] [place] [address] Monocyte abs 0.2 0.2 - 0.8 K/cumm CERNER CH Comment:Testing performed by : [facility] [place] [place] [address] Eosinophil abs 0.0 0.0 - 0.5 K/cumm CERNER CH Comment:Testing performed by : [facility] [place] [address] Basophil abs 0.0 0.0 - 0.1 K/cumm CERNER CH Comment:Testing performed by : [facility] [place] [address] Neutrophil pct 85.9 % CERNER CH Comment: Interpretive Data Percent cell count reference ranges are not reported, since discordance with absolute values may lead to misinterpretation of CBC data. Current Interpretive Data was last revised on 2017. Testing performed by: [facility] [place] [id number] Imm gran pct 0.3 % CERNER CH Comment: Interpretive Data Percent cell count reference ranges are not reported, since discordance with absolute values may lead to misinterpretation of CBC data. Current Interpretive Data was last revised on 2017. Testing performed by: [facility] [place] [address] Lymphocyte pct 11.0 % CERNER CH Comment: Interpretive Data Percent cell count reference ranges are not reported, since discordance with absolute values may lead to misinterpretation of CBC data. Current Interpretive Data was last revised on 2017. Testing performed by: [facility] [place] [address] Monocyte pct 2.1 % CERNER CH Comment: Interpretive Data Percent cell count reference ranges are not reported, since discordance with absolute values may lead to misinterpretation of CBC data. Current Interpretive Data was last revised on 2017. Testing performed by: [facility] [place] [address] Eosinophil pct 0.2 % CERNER CH Comment: Interpretive Data Percent cell count reference ranges are not reported, since discordance with absolute values may lead to misinterpretation of CBC data. Current Interpretive Data was last revised on 2017. Testing performed by: [facility] [place] [address] Basophil pct 0.5 % CERNER CH Comment: Interpretive Data Percent cell count reference ranges are not reported, since discordance with absolute values may lead to misinterpretation of CBC data. Current Interpretive Data was last revised on 2017. Testing performed by: [facility] [place] [address] Blood 09/18/2024 9:47 AM CDT 09/18/2024 9:47 AM CDT Stefano Hernandez MD LAB BLOOD ORDERABLES Final Result [facility] [address] [place] [address] * (ABNORMAL) CBC with auto differential (09/18/2024 9:47 AM CDT) WBC 8.6 3.8 - 9.9 K/cumm Comment:Testing performed by : [facility] [place] [address] Hgb 10.6(L) 13.0 - 17.5 g/dL CERNER CH Comment:Testing performed by : [facility] [place] [address] Hct 33.6(L) 38.9 - 50.3 % CERNER CH Comment:Testing performed by : [facility] [place] [address] Plt 412(H) 150 - 400 K/cumm CERNER CH Comment:Testing performed by : [facility] [place] [address] MPV 8.5(L) 9.1 - 12.3 fL CERNER CH Comment:Testing performed by : [facility] [place] [address] RBC 4.09(L) 4.30 - 5.80 M/cumm CERNER CH Comment:Testing performed by : [facility] [place] [address] MCV 82.2 81.3 - 96.4 fL CERNER CH Comment:Testing performed by : [facility] [place] [address] MCH 25.9(L) 27.1 - 33.3 pg CERNER CH Comment:Testing performed by : [facility] [place] [address] MCHC 31.5(L) 32.3 - 35.7 g/dL AMNA RODRÍGUEZ Comment:Testing performed by : [facility] [place] [address] RDW CV 14.7 11.1 - 14.9 % AMNA RODRÍGUEZ Comment:Testing performed by : [facility] [place] [address] RDW SD 44.3 35.7 - 48.1 fL AMNA RODRÍGUEZ Comment:Testing performed by : [facility] [place] [address] NRBC abs 0.00 0.00 - 0.01 K/cumm AMNA RODRÍGUEZ Comment:Testing performed by : [facility] [place] [address] Blood 09/18/2024 9:47 AM CDT 09/18/2024 9:47 AM CDT Stefano Hernandez MD LAB BLOOD ORDERABLES Final Result Performing Organization Address [facility] de Phone Number AMNA RODRÍGUEZ [address] [address] [facility] [employer] [place], [place] [id number] * PSA diagnostic (09/18/2024 9:47 AM CDT) PSA-Total 2.74 <=6.20 ng/mL Comment: Interpretive Data AGE SEX REFERENCE INTERVAL 0 minutes-150 years Female None 0 minutes-49 years Male None 50-59 years Male 0-3.90 60-69 years Male 0-5.40 70-79 years Male 0-6.20 80-150 years Male 0-6.20 The Luz PSA Total assay procedure was used. Results from different manufacturers or methods may not be comparable. Serial testing should be performed using the same method. Current interpretive data last revised 21. Blood 09/18/2024 9:47 AM CDT 09/18/2024 11:14 AM CDT Stefano Hernandez MD LAB BLOOD ORDERABLES Final Result Performing Organization Address [facility] Co de Phone Number AM[facility] RODRÍGUEZ [address] [place] [address] * (ABNORMAL) Comprehensive metabolic panel (09/18/2024 9:47 AM CDT) Sodium 136 135 - 145 mmol/L Comment:Testing performed by : [facility] [place] [address] Potassium, pl 5.4(H) 3.3 - 4.9 mmol/L CERNER CH Comment:Testing performed by : [facility] [place] [address] Chloride 100 97 - 110 mmol/L CERNER CH Comment:Testing performed by : [facility] [place] [address] CO2 26 22 - 32 mmol/L CERNER CH Comment:Testing performed by : [facility] [place] [address] Anion gap 10 2 - 15 mmol/L CERNER CH Comment:Testing performed by : [facility] [place] [address] BUN 15 6 - 25 mg/dL CERNER CH Comment:Testing performed by : [facility] [place] [address] Creatinine 0.73(L) 0.80 - 1.30 mg/dL CERNER CH Comment:Testing performed by : [facility] [place] [address] Glucose 149 70 - 199 mg/dL CERNER CH Comment: Interpretive Data Fasting glucose >/= 126 mg/dl is diagnostic for diabetes. Fasting is defined as no caloric intake for at least 8 hours. Fasting glucose between 100 mg/dl to 125 mg/dl is diagnostic of prediabetes. In a patient with classic symptoms of hyperglycemia or hyperglycemic crisis, a random glucose >/= 200 mg/dl is diagnostic for diabetes. In the absence of unequivocal hyperglycemia, results should be confirmed by repeat testing. The classification and Diagnosis of Diabetes Diabetes Care 2021; 46: S19-S40. Current interpretive data was last revised 2022. Testing performed by: [facility] [place] [address] Calcium 10.3 8.5 - 10.3 mg/dL CERNER CH Comment:Testing performed by : [facility] [place] [address] Bilirubin, total 0.2 0.1 - 1.2 mg/dL CERNER CH Comment:Testing performed by : [facility] [place] [address] Protein, pl 8.0 6.5 - 8.5 g/dL CERNER CH Comment:Testing performed by : [facility] [place] [address] Albumin 4.3 3.5 - 5.0 g/dL CERNER CH Comment:Testing performed by : [facility] [place] [address] Alk phos 125 40 - 130 Units/L CERNER CH Comment:Testing performed by : [facility] [place] [address] ALT 8 7 - 55 Units/L CERNER CH Comment:Testing performed by : [facility] [place] [address] AST 19 10 - 50 Units/L CERNER CH Comment:Testing performed by : [facility] [place] [address] Blood 09/18/2024 9:47 AM CDT 09/18/2024 9:47 AM CDT us Stefano Hernandez MD LAB BLOOD ORDERABLES Final Result [facility] [address] [facility] [place] [address] * POCT glucose (09/10/2024 5:59 PM REINFORCEMENT MAKER) Glucose, POC 133 70 - 199 mg/dL Blood 09/10/2024 5:59 PM REINFORCEMENT MAKER 09/10/2024 5:59 PM REINFORCEMENT MAKER us Sukhdeep Eugene MD LAB POCT ORDERABLES - D EVICE Final Result [facility] [address] [facility] [place] [address] * FL Fluoroscopy < 1 Hour (09/10/2024 5:45 PM REINFORCEMENT MAKER) Narrative [id number] - 09/10/2024 6:13 PM REINFORCEMENT MAKER The images from this study are not interpreted by Radiology. Please refer to the physician's procedure / OR operative note. us Raad Ahuja MD IMG FLUOROSCOPY PROCEDURES Final Result [id number] * Surgical pathology (09/10/2024 4:47 PM REINFORCEMENT MAKER) Tissue specimen (specimen) (Bone - Biopsy / Curettings) 09/10/2024 4:47 PM REINFORCEMENT MAKER Tissue specimen (specimen) (Bone marrow) 09/10/2024 4:33 AM REINFORCEMENT MAKER Comment:Thoracic 7 bone awilda ow aspirate Tissue specimen (specimen) (Bone marrow) 09/10/2024 4:43 PM REINFORCEMENT MAKER Comment:Lumbar 2 bone marrow aspirate Narrative PATHOLOGY [facility] - 09/17/2024 4:03 PM CDT [facility] Department of Pathology [address] [place] [address] Note to Patients: This report may contain a detailed description of human tissue sent by a health care provider to the laboratory for pathologic evaluation. The content of this report is essential for diagnosis and may provide important critical findings. This information may be unfamiliar to patients to review without a medical professional present. It is advised that the patient review this report in the presence of a health care provider who can answer questions and explain the details. Final Report Patient Name: MARTHA LORENZO : 1945 (Age: 78) Gender: M Address: [address] [place], [place] [id number] Hospital #: [id number] Service: Medical Location: Patient Type: [facility] INPATIENT Taken: 09/10/2024 Received: 09/11/2024 Accessioned: 09/11/2024 Reported: 09/17/2024 Physician(s): MD Sukhdeep Richardson M.D. Diagnosis: A. Bone, lumbar 2, biopsy - Blood clot with no cellular elements identified on CAM 5.2 and NKX 3.3 immunostaining B. Bone marrow, thoracic 7, aspiration - Blood clot with no cellular elements identified C. 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 Report Electronically Reviewed and Signed Out By Russel Adames M.D. 09/17/2024 16:03:10 Specimen(s) Received: A: Lumbar 2 Bone Biopsy B: Thoracic 7 Bone Marrow Aspirate C: Lumbar 2 Bone Marrow Aspirate Microscopic Description: Microscopic examination substantiates the above cited diagnosis. Microscopic examination substantiates the above cited diagnosis. Clinical History: The patient is a 78-year-old man with metastatic prostate cancer. Operative procedure: Kyphoplasty-thoracic 7 and lumbar 2. Gross Description Received in three formalin jars labeled with the patient's identifiers. A. Labeled lumbar 2 bone biopsy and consists of a 0.2 x 0.2 x 0.1 cm charles-brown, firm bone fragment admixed with soft red-brown material. Filtered and entirely submitted following decalcification with EDTA. Labeled A1. Jar 0. B. Labeled thoracic 7 bone marrow aspirate and consists of a 2.5 x 2.4 x 1.0 cm aggregate of dark red clotted blood. Filtered and entirely submitted. Labeled B1 to B2. part. Jar 0. C. Labeled lumbar 2 bone marrow aspirate and consists of a 2.2 x 1.8 x 0.4 cm aggregate of dark red clotted blood. Filtered and entirely submitted. Labeled C1. Jar 0. jjmhb/09/11/2024 09:17 SHARDA Mayfield, PA (ASCP) Microscopic slide review and interpretation for this case was performed at [facility], Department of Surgical Pathology, [address] [facility], [place] [id number], [place] [id number] CLIA # [id number] The Cytokeratin test was performed at [facility] Department of Surgical Pathology, [address] [place] [address]. The NKX3.1 test was performed at [facility], Department of Surgical Pathology, [address] [place] [address]. us Raad Ahuja MD LAB PATHOLOGY ORDERABLES Final R esult PATHOLOGY [facility] * NC AN ELECTIVE ENDOTRACHEAL AIRWAY, NC AN PROCEDURE PLACEHOLDER (09/10/2024 4:15 PM REINFORCEMENT MAKER) Narrative Felisha Anne CRNA - 09/10/2024 4:15 PM REINFORCEMENT MAKER Felisha Anne CRNA 09/10/2024 4:16 PM Airway Patient location: OR Urgency: elective Date/time: 09/10/2024 3:44 PM Indications for airway management: anesthesia Difficult airway: no Staff: Supervising provider: Miguel Angel Henderson MD Placed by: HEAVY DUTY PRESS OPERATOR: Felisha Anne CRNA Emergent airway documentation: Risks and benefits discussed: yes Consent obtained: yes Consent given by: patient Airway prep: Preoxygenated: yes Mask difficulty assessment: 1 - vent by mask Spontaneous ventilation during airway: absent Sedation level during airway: deep Final airway details: Final airway type: endotracheal airway Tube type: ETT ETT size: 7.0 mm Cuffed: yes Technique used for successful ETT placement: direct laryngoscopy Devices/Methods used in placement: stylet Insertion site: oral Blade type: Chuy Blade size: 3 Cormack-Lehane (direct): grade I - full view of glottis Cuff volume: 3 mL Cuff inflated with: air ETT to teeth: 24 cm Placement verified by: auscultation and CO2 detection Airway secured with: silk tape and prone view tape Number of attempts: 1no us Miguel Angel Henderson MD ANESTHESIA ORDERABLES Final Result * POCT glucose (09/10/2024 3:15 PM REINFORCEMENT MAKER) Glucose, POC 102 70 - 199 mg/dL Glucose comment 1 Use This Result AMNA GONZALEZ Blood 09/10/2024 3:15 PM REINFORCEMENT MAKER 09/10/2024 3:15 PM REINFORCEMENT MAKER us Sukhdeep Eugene MD LAB POCT ORDERABLES - D EVICE Final Result [facility] [address] [facility] [place] [address] * MRI Lumbar Spine WO Contrast (09/10/2024 1:49 PM REINFORCEMENT MAKER) Anatomical Region Laterality Modality Spine N/A Magnetic Resonan ce 09/10/2024 2:01 PM REINFORCEMENT MAKER Narrative 09/10/2024 2:16 PM REINFORCEMENT MAKER EXAM DESCRIPTION: MRI LUMBAR SPINE WO CONTRAST REASON FOR STUDY: Compression fracture, lumbar, L3 and L5 compression fracture due to osteoporosis versus metastatic disease Compression fracture, lumbar; L3 and L5 compression fracture due to osteoporosis versus metastatic disease TECHNIQUE: Sagittal and Axial imaging includes T1, T2, STIR sequences. COMPARISON: Lumbar spine CT from 09/09/2024. FINDINGS: SEGMENTATION: No transitional anatomy. The lowest well-developed disc space is labeled L5-S1. ALIGNMENT: Mild T12 on L1, L1 on L2, L2 on L3 and L3 on L4 retrolisthesis. Grade 1 L5 on S1 anterolisthesis. VERTEBRAE: There are numerous T1 hypointense and STIR signal hyperintense lesions throughout the visualized skeleton diffusely, compatible known osseous metastatic disease. The majority of the L2 vertebral body has STIR signal hyperintensity and T1 hypointensity, including a large crescentic area involving the inferior 2/3 of the L2 vertebral body. There is an associated mild focal inferior endplate defect that appears grossly unchanged from PET-CT of 08/09/2024, though suboptimally assessed on that examination. DISC HEIGHT: Multilevel degenerative disc disease, quts-ly-nziznfvk at multiple levels. HARDWARE: None in the spine. CORD/CAUDA: Normal in size and signal intensity. Conus at the L1 level. LOWER THORACIC: Incompletely imaged. No stenosis seen. INDIVIDUAL DISC LEVELS: T12-L1: Minimal disc bulge. Mild facet arthropathy. No neural foraminal or spinal canal stenosis L1-2: Mild disc bulge. Stuu-ay-ozdnnvis facet arthropathy. Mild left and mild right neural foraminal stenosis. No significant spinal canal stenosis L2-3: Disc bulge. Moderate bilateral facet arthropathy. Small right facet joint effusion. Mild left and mild right neural foraminal stenosis. No significant spinal canal stenosis L3-4: Diffuse disc bulge. Teos-xr-ugqjqzgc facet arthropathy. Mild ligamentum flavum thickening and prominence of the dorsal epidural fat. Moderate left and ukpd-ab-tddbgmer right neural foraminal stenosis. Overall mild spinal canal stenosis with mild narrowing of the lateral recesses. L4-5: Disc bulge. Moderate bilateral facet arthropathy with facet joint effusions. Moderate right and severe left neural foraminal stenosis. Kydg-ly-aenflqvu spinal canal stenosis.. L5-S1: Disc bulge and mild disc uncovering. Moderate bilateral facet arthropathy. Moderate to severe left and mild right neural foraminal stenosis. An 11 x 5 mm synovial cyst arising from the left L5-S1 facet joint contributes to left neural foraminal stenosis. SACRUM: Visualized upper sacrum intact. VISUALIZED UPPER ABDOMEN: Colonic diverticulosis is present. OTHER: No other significant findings. IMPRESSION: Numerous osseous metastatic lesions throughout the visualized skeleton, largest in the L2 vertebral body Mild L2 inferior endplate height loss is not grossly changed from 08/09/2024 PET-CT. No acute fracture is identified. 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 THIS IS AN ELECTRONICALLY VERIFIED FINAL REPORT 09/10/2024 2:16 PM - Electronically signed by Prince Montesinos M.D. MZ T: Report ID: [id number] Reading Location: [id number] Procedure Note Prince Montesinos MD - 09/10/2024 EXAM DESCRIPTION: MRI LUMBAR SPINE WO CONTRAST REASON FOR STUDY: Compression fracture, lumbar, L3 and L5 compression fracture due to osteoporosis versus metastatic disease Compression fracture, lumbar; L3 and L5 compression fracture due to osteoporosis versus metastatic disease TECHNIQUE: Sagittal and Axial imaging includes T1, T2, STIR sequences. COMPARISON: Lumbar spine CT from 09/09/2024. FINDINGS: SEGMENTATION: No transitional anatomy. The lowestwell-developed disc space is labeled L5-S1. ALIGNMENT: Mild T12 on L1, L1 on L2, L2 on L3 and L3 on X7pvyzcxgtcadpbc. Grade 1 L5 on S1 anterolisthesis. VERTEBRAE: There are numerous T1 hypointense and STIR signalhyperintense lesions throughout the visualized skeleton diffusely, compatible knownosseous metastatic disease. The majority of the L2 vertebral body has STIR signal hyperintensity and T1 hypointensity, including a large crescentic area involving the inferior 2/3 of the L2 vertebral body. There is anassociated mild focal inferior endplate defect that appears grossly unchanged fromPET-CT of 08/09/2024, though suboptimally assessed on that examination. DISC HEIGHT: Multilevel degenerative disc disease, vwkg-gz-jftjjgwh at multiple levels. HARDWARE: None in the spine. CORD/CAUDA: Normal in size and signal intensity. Conus at the L1 level. LOWER THORACIC: Incompletely imaged. No stenosis seen. INDIVIDUAL DISC LEVELS: T12-L1: Minimal disc bulge. Mild facet arthropathy. No neural foraminalor spinal canal stenosis L1-2: Mild disc bulge. Ynjw-bp-ojapczpv facet arthropathy. Mild leftand mild right neural foraminal stenosis. No significant spinal canalstenosis L2-3: Disc bulge. Moderate bilateral facet arthropathy. Small rightfacet joint effusion. Mild left and mild right neural foraminal stenosis. No significant spinal canal stenosis L3-4: Diffuse disc bulge. Ivtp-vt-rzddlbqc facet arthropathy. Mild ligamentum flavum thickening and prominence of the dorsal epidural fat. Moderate left and logx-vp-gbfgqtva right neural foraminal stenosis.Overall mild spinal canal stenosis with mild narrowing of the lateral recesses. L4-5: Disc bulge. Moderate bilateral facet arthropathy with facet joint effusions. Moderate right and severe left neural foraminal stenosis. Dcpd-uu-wshadrgo spinal canal stenosis.. L5-S1: Disc bulge and mild disc uncovering. Moderate bilateral facet arthropathy. Moderate to severe left and mild right neural foraminal stenosis. An 11 x 5 mm synovial cyst arising from the left L5-S1 facetjoint contributes to left neural foraminal stenosis. SACRUM: Visualized upper sacrum intact. VISUALIZED UPPER ABDOMEN: Colonic diverticulosis is present. OTHER: No other significant findings. IMPRESSION: Numerous osseous metastatic lesions throughout the visualized skeleton, largest in the L2 vertebral body Mild L2 inferior endplate height loss is not grossly changed from08/09/2024 PET-CT. No acute fracture is identified. Multilevel lumbar degenerative disc and joint disease, as detailed levelby level above. THIS IS AN ELECTRONICALLY VERIFIED FINAL REPORT 09/10/2024 2:16 PM - Electronically signed by Prince Montesinos M.D. MZ T: Report ID: [id number] Reading Location: [id number] Raad Ahuja MD IMG MRI PROCEDURES Final Result * POCT glucose (09/10/2024 11:40 AM REINFORCEMENT MAKER) Glucose, POC 78 70 - 199 mg/dL Blood 09/10/2024 11:4 0 AM REINFORCEMENT MAKER 09/10/2024 11:40 AM REINFORCEMENT MAKER Sukhdeep Eugene MD LAB POCT ORDERABLES - D EVICE Final Result Performing Organization Address City/[facility]/ZIP Co de Phone Number [address] [place] [address] * Influenza A/B, RSV, and COVID-19 PCR Nasopharyngeal (09/10/2024 9:48 AM REINFORCEMENT MAKER) [facility] COVID-19 RNA Negative Negative Influenza A RNA Negative Negative [facility] Influenza B RNA Negative Negative [facility] RSV RNA Negative Negative [facility] Comment: Interpretive data: Testing performed by [facility]. This test is performed using the [employer]ik[employer] Xpert Xpress CoV-2/Flu/RSV plus assay. This is a multiplex, real-time reverse transcriptase PCR assay intended for the qualitative detection of nucleic acid from SARS-CoV-2, influenza A, influenza B, and respiratory syncytial virus. This assay has been cleared by the [place] Food and Drug administration. The performance characteristics have been verified by the [facility]. Results must be considered in the clinical context, and a negative result does not rule out infection. Interpretive Data last revised 2023 Nasopharyngeal 09/10/2024 9: 48 AM REINFORCEMENT MAKER 09/10/2024 9:52 AM REINFORCEMENT MAKER Narrative [facility] - 09/10/2024 10:35 AM REINFORCEMENT MAKER Is the Patient experiencing symptoms consistent with COVID?->Unknown Result [facility] [place]ukhdeep Eugene MD LAB MICROBIOLOGY - GENE RAL ORDERABLES Final Result Performing Organization Address City/[facility]/ZIP Co de Phone Number [address] [address] * POCT glucose (09/09/2024 7:56 PM REINFORCEMENT MAKER) Pathologist [facility] Glucose, POC 179 70 - 199 mg/dL Glucose comment 1 Use This Result AMNA Blood 09/09/2024 7:56 PM REINFORCEMENT MAKER 09/09/2024 7:56 PM REINFORCEMENT MAKER Sukhdeep Eugene MD LAB POCT ORDERABLES - D GEOVANNYICE Final Result [address] [address] * Phosphorus (09/09/2024 6:46 PM REINFORCEMENT MAKER) [facility] Phosphorus, pl 3.1 2.3 - 4.5 mg/dL Blood 09/09/2024 6:46 PM REINFORCEMENT MAKER 09/09/2024 7:00 PM REINFORCEMENT MAKER Marta Tucker NP LAB BLOOD ORDERABLES Fin al Result [address] [address] * Magnesium (09/09/2024 6:46 PM REINFORCEMENT MAKER) [facility] Magnesium 1.7 1.4 - 2.5 mg/dL Blood 09/09/2024 6:46 PM REINFORCEMENT MAKER 09/09/2024 7:00 PM REINFORCEMENT MAKER Marta Tucker COMMUNICATIONS ENGINEER LAB BLOOD ORDERABLES Fin al Result [address] [address] * CT Lumbar Spine WO Contrast (09/09/2024 6:43 PM REINFORCEMENT MAKER) Anatomical Region Laterality Modality Spine N/A Computed Tomogra phy 09/09/2024 9:29 PM REINFORCEMENT MAKER Addenda Addendum by Donte Jara DO on 09/10/2024 8:38 AM REINFORCEMENT MAKER ADDENDUM: This addendum report supersedes the original report dated 09/09/2024. The images were reviewed per the request of the ordering clinician Raad Umaña. At the inferior endplate of L2 there is a lucent focus suspicious for metastases. Inferior endplate pathologic fracture with at least 25% height loss. The remainder of the report remains unchanged. END OF ADDENDUM REPORT THIS IS AN ELECTRONICALLY VERIFIED FINAL REPORT 09/10/2024 8:38 AM Addendum Electronically signed by Donte KIDD T: Report ID: [id number] Reading Location: [address] 09/09/2024 9:39 PM REINFORCEMENT MAKER EXAM DESCRIPTION: CT THORACIC SPINE WO CONTRAST; CT LUMBAR SPINE WO CONTRAST REASON FOR STUDY: Mid-back pain Compression fracture, thoracic; back pain ; Compression fracture, lumbar, please do one mm thin slices. Please make axial slices parallel the superior endplates so we can see better of of the vertebral body compression fracture as well as the pedicles anatomy Compression fracture, thoracic; back pain TECHNIQUE: Axial images acquired through the thoracic spine without intravenous contrast. Images reviewed with lung, soft tissue and bone windows. Reconstructed coronal and sagittal MPR images reviewed. Images stored on PACS. Automated exposure control was used as a dose optimization technique for this examination. COMPARISON: MRI of the thoracic spine dated 09/05/2024 and bone scan dated 09/05/2024. FINDINGS: ALIGNMENT: Grade 1 anterolisthesis of L5 on S1 in the setting of a unilateral right L5 pars defect. Is also trace degenerative grade 1 anterolisthesis of L4 on L5. VERTEBRAE: Redemonstration of a pathologic compression fracture involving the T7 vertebral body with similar moderate vertebral body height loss and retropulsion resulting in mild osseous spinal canal stenosis. Numerous osseous metastases better seen on prior MRI. No new fracture. The remaining vertebral body heights are maintained. Degenerative endplate changes with osteophytosis seen scattered throughout the thoracic and lumbar spine. Multilevel facet arthropathy. DISC HEIGHT: Bbwu-ap-mcnmovbe disc space narrowing seen scattered throughout the thoracic and lumbar spine; most advanced at the lower lumbar spine. Concomitant multilevel facet arthropathy. There is resultant variable osseous foraminal stenoses; most advanced at L5-S1 with moderate to severe bilateral foraminal stenoses, greater on the left. HARDWARE: None in the spine. SOFT TISSUES: Minimal epidural tumor extension as seen on recent MRI at the T7 paraspinal ventral soft tissues. OTHER: Advanced aortoiliac and coronary atherosclerosis visualized. No other significant abnormality. IMPRESSION: 1. No significant interval change of the T7 pathologic compression fracture. No new compression fracture deformity. 2. Numerous osseous metastases as better seen on the recent MRI. 3. Piba-uz-cjjvkqsf multilevel thoracic and lumbar spondylosis. THIS IS AN ELECTRONICALLY VERIFIED FINAL REPORT 09/09/2024 9:39 PM - Electronically signed by Martha Lamar M.D. T: Report ID: [id number] Reading Location: [id number] Procedure Note Martha Lamar, / Donte Jara DO - 09/09/2024 EXAM DESCRIPTION: CT THORACIC SPINE WO CONTRAST; CT LUMBAR SPINE WOCONTRAST REASON FOR STUDY: Mid-back pain Compression fracture, thoracic; back pain ; Compression fracture, lumbar, please do one mm thin slices. Please make axial slices parallel thesuperior endplates so we can see better of of the vertebral body compressionfracture as well as the pedicles anatomy Compression fracture, thoracic; back pain TECHNIQUE: Axial images acquired through the thoracic spine without intravenous contrast. Images reviewed with lung, soft tissue and bone windows. Reconstructed coronal and sagittal MPR images reviewed. Images stored on PACS. Automated exposure control was used as a dose optimization technique for this examination. COMPARISON: MRI of the thoracic spine dated 09/05/2024 and bone scandated 09/05/2024. FINDINGS: ALIGNMENT: Grade 1 anterolisthesis of L5 on S1 in the settingof a unilateral right L5 pars defect. Is also trace degenerative grade 1 anterolisthesis of L4 on L5. VERTEBRAE: Redemonstration of a pathologic compression fracture involvingthe T7 vertebral body with similar moderate vertebral body height loss and retropulsion resulting in mild osseous spinal canal stenosis. Numerous osseous metastases better seen on prior MRI. No new fracture. Theremaining vertebral body heights are maintained. Degenerative endplate changes with osteophytosis seen scattered throughout the thoracic and lumbar spine. Multilevel facet arthropathy. DISC HEIGHT: Gioh-zg-jumvwoye disc space narrowing seen scatteredthroughout the thoracic and lumbar spine; most advanced at the lower lumbar spine. Concomitant multilevel facet arthropathy. There is resultant variableosseous foraminal stenoses; most advanced at L5-S1 with moderate to severebilateral foraminal stenoses, greater on the left. HARDWARE: None in the spine. SOFT TISSUES: Minimal epidural tumor extension as seen on recent MRI atthe T7 paraspinal ventral soft tissues. OTHER: Advanced aortoiliac and coronary atherosclerosis visualized. Noother significant abnormality. IMPRESSION: 1. No significant interval change of the T7 pathologic compression fracture. No new compression fracture deformity. 2. Numerous osseous metastases as better seen on the recent MRI. 3. Itgp-rv-ehecwxbi multilevel thoracic and lumbar spondylosis. THIS IS AN ELECTRONICALLY VERIFIED FINAL REPORT 09/09/2024 9:39 PM - Electronically signed by Martha Lamar M.D. T: Report ID: [id number] Reading Location: [place] [address] Raad Ahjua MD [facility] PROCEDURES Edited Result - Final * CT Thoracic Spine WO Contrast (09/09/2024 6:39 PM REINFORCEMENT MAKER) Anatomical Region Laterality Modality Spine N/A Computed Tomogra phy 09/09/2024 9:29 PM REINFORCEMENT MAKER Addenda Addendum by Donte Jara DO on 09/10/2024 8:38 AM REINFORCEMENT MAKER ADDENDUM: This addendum report supersedes the original report dated 09/09/2024. The images were reviewed per the request of the ordering clinician Raad Umaña. At the inferior endplate of L2 there is a lucent focus suspicious for metastases. Inferior endplate pathologic fracture with at least 25% height loss. The remainder of the report remains unchanged. END OF ADDENDUM REPORT THIS IS AN ELECTRONICALLY VERIFIED FINAL REPORT 09/10/2024 8:38 AM Addendum Electronically signed by Donte Jara D.O. AP T: Report ID: [id number] Reading Location: [id number] [place] 09/09/2024 9:39 PM REINFORCEMENT MAKER EXAM DESCRIPTION: CT THORACIC SPINE WO CONTRAST; CT LUMBAR SPINE WO CONTRAST REASON FOR STUDY: Mid-back pain Compression fracture, thoracic; back pain ; Compression fracture, lumbar, please do one mm thin slices. Please make axial slices parallel the superior endplates so we can see better of of the vertebral body compression fracture as well as the pedicles anatomy Compression fracture, thoracic; back pain TECHNIQUE: Axial images acquired through the thoracic spine without intravenous contrast. Images reviewed with lung, soft tissue and bone windows. Reconstructed coronal and sagittal MPR images reviewed. Images stored on PACS. Automated exposure control was used as a dose optimization technique for this examination. COMPARISON: MRI of the thoracic spine dated 09/05/2024 and bone scan dated 09/05/2024. FINDINGS: ALIGNMENT: Grade 1 anterolisthesis of L5 on S1 in the setting of a unilateral right L5 pars defect. Is also trace degenerative grade 1 anterolisthesis of L4 on L5. VERTEBRAE: Redemonstration of a pathologic compression fracture involving the T7 vertebral body with similar moderate vertebral body height loss and retropulsion resulting in mild osseous spinal canal stenosis. Numerous osseous metastases better seen on prior MRI. No new fracture. The remaining vertebral body heights are maintained. Degenerative endplate changes with osteophytosis seen scattered throughout the thoracic and lumbar spine. Multilevel facet arthropathy. DISC HEIGHT: Gyar-xn-rkonevqh disc space narrowing seen scattered throughout the thoracic and lumbar spine; most advanced at the lower lumbar spine. Concomitant multilevel facet arthropathy. There is resultant variable osseous foraminal stenoses; most advanced at L5-S1 with moderate to severe bilateral foraminal stenoses, greater on the left. HARDWARE: None in the spine. SOFT TISSUES: Minimal epidural tumor extension as seen on recent MRI at the T7 paraspinal ventral soft tissues. OTHER: Advanced aortoiliac and coronary atherosclerosis visualized. No other significant abnormality. IMPRESSION: 1. No significant interval change of the T7 pathologic compression fracture. No new compression fracture deformity. 2. Numerous osseous metastases as better seen on the recent MRI. 3. Pypk-fl-vrjzffjm multilevel thoracic and lumbar spondylosis. THIS IS AN ELECTRONICALLY VERIFIED FINAL REPORT 09/09/2024 9:39 PM - Electronically signed by Martha Lamar M.D. T: Report ID: [id number] Reading Location: [place] [address] Procedure Note Martha Lamar, / Donte Jara DO - 09/09/2024 EXAM DESCRIPTION: CT THORACIC SPINE WO CONTRAST; CT LUMBAR SPINE WOCONTRAST REASON FOR STUDY: Mid-back pain Compression fracture, thoracic; back pain ; Compression fracture, lumbar, please do one mm thin slices. Please make axial slices parallel thesuperior endplates so we can see better of of the vertebral body compressionfracture as well as the pedicles anatomy Compression fracture, thoracic; back pain TECHNIQUE: Axial images acquired through the thoracic spine without intravenous contrast. Images reviewed with lung, soft tissue and bone windows. Reconstructed coronal and sagittal MPR images reviewed. Images stored on PACS. Automated exposure control was used as a dose optimization technique for this examination. COMPARISON: MRI of the thoracic spine dated 09/05/2024 and bone scandated 09/05/2024. FINDINGS: ALIGNMENT: Grade 1 anterolisthesis of L5 on S1 in the settingof a unilateral right L5 pars defect. Is also trace degenerative grade 1 anterolisthesis of L4 on L5. VERTEBRAE: Redemonstration of a pathologic compression fracture involvingthe T7 vertebral body with similar moderate vertebral body height loss and retropulsion resulting in mild osseous spinal canal stenosis. Numerous osseous metastases better seen on prior MRI. No new fracture. Theremaining vertebral body heights are maintained. Degenerative endplate changes with osteophytosis seen scattered throughout the thoracic and lumbar spine. Multilevel facet arthropathy. DISC HEIGHT: [id number] disc space narrowing seen scatteredthroughout the thoracic and lumbar spine; most advanced at the lower lumbar spine. Concomitant multilevel facet arthropathy. There is resultant variableosseous foraminal stenoses; most advanced at L5-S1 with moderate to severebilateral foraminal stenoses, greater on the left. HARDWARE: None in the spine. SOFT TISSUES: Minimal epidural tumor extension as seen on recent MRI atthe T7 paraspinal ventral soft tissues. OTHER: Advanced aortoiliac and coronary atherosclerosis visualized. Noother significant abnormality. IMPRESSION: 1. No significant interval change of the T7 pathologic compression fracture. No new compression fracture deformity. 2. Numerous osseous metastases as better seen on the recent MRI. 3. [id number] multilevel thoracic and lumbar spondylosis. THIS IS AN ELECTRONICALLY VERIFIED FINAL REPORT 09/09/2024 9:39 PM - Electronically signed by Martha Lamar M.D. T: Report ID: [id number] Reading Location: [id number] Raad Ahuja MD IMG CT PROCEDURES Edited Result - Final * POCT glucose (09/09/2024 4:37 PM REINFORCEMENT MAKER) Glucose, POC 138 70 - 199 mg/dL Blood 09/09/2024 4:37 PM REINFORCEMENT MAKER 09/09/2024 4:37 PM REINFORCEMENT MAKER Sukhdeep Eugene MD LAB POCT ORDERABLES - D EVICE Final Result [facility] [address] [facility] [place] [address] * Infection Prevention Kiara auris PCR, surveillance Axilla/Groin (09/09/2024 2:36 PM REINFORCEMENT MAKER) Kiara auris DNA Not Detected Not Detected [facility] Comment: Interpretive Data Testing performed by [facility]ious Disease [facility] using the Luz juli 6800 Kiara auris assay. This assay detects DNA from Kiara auris using Real-Time PCR. This assay is laboratory developed and is not cleared by the [place] Food and Drug Administration. The performance characteristics have been verified by the [facility]. Testing performed by: [facility], [address] [place]., [address] Axilla/Groin 09/09/2024 2:36 PM REINFORCEMENT MAKER 09/09/2024 5:34 PM REINFORCEMENT MAKER us Lex Akhtar MD LAB MICROBIOLOGY - GENERAL O RDERABLES Final Result Performing Organization Address City/[facility]/ZIP Co de Phone Number [address] [place] [address] [facility] * POCT glucose (09/09/2024 11:52 AM REINFORCEMENT MAKER) Glucose, POC 110 70 - 199 mg/dL Blood 09/09/2024 11:5 2 AM REINFORCEMENT MAKER 09/09/2024 11:52 AM REINFORCEMENT MAKER Sukhdeep Eugene MD LAB POCT ORDERABLES - D EVICE Final Result Performing Organization Address City/[facility] Co de Phone Number [address] [place] [address] * POCT glucose (09/09/2024 7:57 AM REINFORCEMENT MAKER) Glucose, POC 122 70 - 199 mg/dL Blood 09/09/2024 7:57 AM REINFORCEMENT MAKER 09/09/2024 7:57 AM REINFORCEMENT MAKER us Sukhdeep Eugene MD LAB POCT ORDERABLES - D EVICE Final Result Performing Organization Address City/[facility]/ZIP Co de Phone Number [address] [place] [address] * ECG 12 lead (09/09/2024 7:26 AM REINFORCEMENT MAKER) Ventricular Rate EKG/Min 83 BPM [facility] Atrial Rate 83 BPM [facility] NC-Interval (MSEC) 138 ms [facility] QRS-Interval (MSEC) 86 ms [facility] QT-Interval (MSEC) 356 ms [facility] QTc 418 ms [facility] P [place] 62 degrees [facility] R [place] 68 degrees [facility] T [place] 56 degrees [facility] Diagnosis Normal sinus rhythm Low voltage QRS When compared with ECG of 16-JUL-2024 13:06, Premature atrial complexes are no longer Present Confirmed by SULTAN LOWRY M.D. ([id number]) on 09/09/2024 2:26:34 PM [facility] 09/09/2024 7:26 AM REINFORCEMENT MAKER 09/09/2024 2:26 PM REINFORCEMENT MAKER Tyrone Campbell COMMUNICATIONS ENGINEER ECG ORDERABLES Final Result [facility] * eGFR (09/09/2024 6:10 AM REINFORCEMENT MAKER) eGFR >90 >=60 mL/min/1. 73 m2 Comment: Interpretive Data Reference Interval Normal >/= 90 mL/min/1.73m2 Mildly decreased* 60 - 89 mL/min/1.73m2 Mildly to moderately decreased 45 - 59 mL/min/1.73m2 Moderately to severely decreased 30 - 44 mL/min/1.73m2 Severely decreased 15 - 29 mL/min/1.73m2 Kidney Failure < 15 mL/min/1.73m2 *Relative to young adult level Estimated glomerular filtration rate is determined by the 2020 CKD-EPI equation recommended by the National Kidney Foundation (A Unifying Approach to GFR Estimation: Recommendations of the NKF-ASK Task Force on Reassessing the Inclusion of Race in Diagnosing Kidney Disease, JASN 2020). The CKD-EPI equation should not be used for patients with unstable renal function and has not been validated in children and those over 70. Current interpretive data was last reviewed 2021. Blood 09/09/2024 6:10 AM REINFORCEMENT MAKER 09/09/2024 6:52 AM REINFORCEMENT MAKER us Jens Juan De La Paz COMMUNICATIONS ENGINEER LAB BLOOD ORDERABLES Fin al Result [facility] [address] [facility] [place] [address] * (ABNORMAL) Differential, auto (09/09/2024 6:10 AM REINFORCEMENT MAKER) Neutrophil abs 4.2 1.5 - 6.5 K/cumm Imm gran abs 0.0 0.0 - 0.1 K/cumm [facility] Lymphocyte abs 2.6 0.8 - 3.3 K/cumm [facility] Monocyte abs 1.4(H) 0.2 - 0.8 K/cumm [facility] Eosinophil abs 0.5 0.0 - 0.5 K/cumm [facility] Basophil abs 0.1 0.0 - 0.1 K/cumm [facility] Neutrophil pct 48.4 % [facility] Comment: Interpretive Data Percent cell count reference ranges are not reported, since discordance with absolute values may lead to misinterpretation of CBC data. Current Interpretive Data was last revised on 2017. Imm gran pct 0.2 % [facility] Comment: Interpretive Data Percent cell count reference ranges are not reported, since discordance with absolute values may lead to misinterpretation of CBC data. Current Interpretive Data was last revised on 2017. Lymphocyte pct 29.8 % [facility] Comment: Interpretive Data Percent cell count reference ranges are not reported, since discordance with absolute values may lead to misinterpretation of CBC data. Current Interpretive Data was last revised on 2017. Monocyte pct 15.5 % [facility] Comment: Interpretive Data Percent cell count reference ranges are not reported, since discordance with absolute values may lead to misinterpretation of CBC data. Current Interpretive Data was last revised on 2017. Eosinophil pct 5.1 % [facility] Comment: Interpretive Data Percent cell count reference ranges are not reported, since discordance with absolute values may lead to misinterpretation of CBC data. Current Interpretive Data was last revised on 2017. Basophil pct 1.0 % [facility] Comment: Interpretive Data Percent cell count reference ranges are not reported, since discordance with absolute values may lead to misinterpretation of CBC data. Current Interpretive Data was last revised on 2017. Blood 09/09/2024 6:10 AM REINFORCEMENT MAKER 09/09/2024 6:52 AM REINFORCEMENT MAKER us Jens Juan De La Paz COMMUNICATIONS ENGINEER LAB BLOOD ORDERABLES Fin al Result [facility] [address] [facility] [place] [address] * (ABNORMAL) CBC with auto differential (09/09/2024 6:10 AM REINFORCEMENT MAKER) [facility] WBC 8.8 3.8 - 9.9 K/cumm Hgb 9.9(L) 13.0 - 17.5 g/dL [facility] Hct 32.2(L) 38.9 - 50.3 % [facility] Plt 466(H) 150 - 400 K/cumm [facility] MPV 8.8(L) 9.1 - 12.3 fL [facility] RBC 3.86(L) 4.30 - 5.80 M/cumm [facility] MCV 83.4 81.3 - 96.4 fL [facility] MCH 25.6(L) 27.1 - 33.3 pg [facility] MCHC 30.7(L) 32.3 - 35.7 g/dL [facility] RDW CV 14.5 11.1 - 14.9 % [facility] RDW SD 44.1 35.7 - 48.1 fL [facility] NRBC abs 0.00 0.00 - 0.01 K/cumm [facility] Blood 09/09/2024 6:10 AM REINFORCEMENT MAKER 09/09/2024 6:52 AM REINFORCEMENT MAKER us Jens Juan De La Paz COMMUNICATIONS ENGINEER LAB BLOOD ORDERABLES Fin al Result [facility] [address] [facility] [place], [place] [id number] * Basic metabolic panel (09/09/2024 6:10 AM REINFORCEMENT MAKER) [facility] Sodium 139 135 - 145 mmol/L Potassium, pl 4.4 3.3 - 4.9 mmol/L [facility] Chloride 102 97 - 110 mmol/L [facility] CO2 29 22 - 32 mmol/L [facility] Anion gap 8 2 - 15 mmol/L [facility] BUN 16 6 - 25 mg/dL [facility] Creatinine 0.81 0.80 - 1.30 mg/dL [facility] Glucose 105 70 - 199 mg/dL [facility] Comment: Interpretive Data Fasting glucose >/= 126 mg/dl is diagnostic for diabetes. Fasting is defined as no caloric intake for at least 8 hours. Fasting glucose between 100 mg/dl to 125 mg/dl is diagnostic of prediabetes. In a patient with classic symptoms of hyperglycemia or hyperglycemic crisis, a random glucose >/= 200 mg/dl is diagnostic for diabetes. In the absence of unequivocal hyperglycemia, results should be confirmed by repeat testing. The classification and Diagnosis of Diabetes Diabetes Care 2021; 46: S19-S40. Current interpretive data was last revised 2022. Calcium 9.8 8.5 - 10.3 mg/dL [facility] Blood 09/09/2024 6:10 AM REINFORCEMENT MAKER 09/09/2024 6:52 AM REINFORCEMENT MAKER Jens De La Paz COMMUNICATIONS ENGINEER LAB BLOOD ORDERABLES Fin al Result Performing Organization Address [facility] Co de Phone Number [address] [phone] * Troponin T high-sensitivity 4-hour (09/09/2024 12:13 AM REINFORCEMENT MAKER) Trop T hs 12 <=22 ng/L Comment: Interpretive Data For further hscTnT resources including the diagnostic algorithm and an aid in interpretation, copy and paste this link: https://nrl.testcatalog.org/show/hsTrop Current Interpretive Data last revised 2020. Trop T hs delta -3 ng/L [facility] Trop T hs interp Insignificant [facility] Blood 09/09/2024 12:1 3 AM REINFORCEMENT MAKER 09/09/2024 12:14 AM REINFORCEMENT MAKER Tyrone Campbell COMMUNICATIONS ENGINEER LAB BLOOD ORDERABLES Final Resul t Performing Organization Address City/[facility]/ZIP Co de Phone Number [address] [employer] [place], [place] [id number] * Troponin T high-sensitivity 2-hour (09/08/2024 10:10 PM REINFORCEMENT MAKER) Trop T hs 10 <=22 ng/L Comment: Interpretive Data For further hscTnT resources including the diagnostic algorithm and an aid in interpretation, copy and paste this link: https://nrl.testcatalog.org/show/hsTrop Current Interpretive Data last revised 2020. Trop T hs delta -5 ng/L [facility] Trop T hs interp Equivocal [facility] Blood 09/08/2024 10:1 0 PM REINFORCEMENT MAKER 09/08/2024 10:13 PM REINFORCEMENT MAKER Tyrone Campbell NP LAB BLOOD ORDERABLES Final Resul t Performing Organization Address City/[facility] Co de Phone Number [facility] [address] [facility] [place] [address] * (ABNORMAL) Urinalysis reflex to microscopic and culture Urine (09/08/2024 8:31 PM REINFORCEMENT MAKER) Color, ur Straw Yellow Clarity, ur Clear Clear [facility] Specific gravity, ur 1.007 1.003 - 1.030 [facility] pH, urine 7.0 [facility] Comment: Interpretive Data U rine pH is affected by diet, medications, systemic acid-base disturbances, and renal tubular function. pH may affect urinary stone formation. For example, urine pH below 6.0 may help reduce the tendency for calcium phosphate stones and pH greater than 6.0 may reduce the tendency for uric acid stone formation. Source: [facility] Current Interpretive Data was last revised on 2017 Protein, ur ql Negative Negative [facility] Glucose, ur ql Negative Negative [facility] Ketones, ur Negative Negative [facility] Bilirubin, ur Negative Negative [facility] Blood, ur Negative Negative [facility] Urobilinogen, ur <2.0 <2.0 mg/dL [facility] Nitrite, ur Negative Negative [facility] Leukocyte esterase, ur 1+(A) Negative [facility] UA reflex comment Reflex to microscopic UA will be performed. [facility] Urine 09/08/2024 8:31 PM REINFORCEMENT MAKER 09/08/2024 8:34 PM REINFORCEMENT MAKER Felipa Murphy DO LAB MICROBIOLOGY - GENERAL ORDE RABKATIANA Final Result Performing Organization Address City/[facility]/ZIP Co de Phone Number [facility] [address] [place] [address] * (ABNORMAL) Urinalysis, microscopic only (09/08/2024 8:31 PM REINFORCEMENT MAKER) WBC, ur 11-20(A) 0 - 5 /HPF RBC, ur 0-2 0 - 2 /HPF [facility] Culture Reflex Comment Reflex to urine culture will be performed. [facility] Urine 09/08/2024 8:31 PM REINFORCEMENT MAKER 09/08/2024 8:34 PM REINFORCEMENT MAKER Felipa Murphy DO LAB URINE ORDERABLES Final Resu lt Performing Organization Address [facility]/ZIP Co de Phone Number [address] [place] [address] * (ABNORMAL) Urine culture Urine (09/08/2024 8:31 PM REINFORCEMENT MAKER) Report Final Report: Greater than or equal to 100,000 colonies/mL of Pseudomonas aeruginosa Plus growth of clinically insignificant bacterial damian. (.) Comment:Testing performed by : [facility], [address] [facility], [place]., [address] Organism PSEUDOMONAS AERUGINOSA [facility] Organism PLUS GROWTH OF CLINICALLY INSIGNIFICANT DAMIAN. [facility] Urine 09/08/2024 8:31 PM REINFORCEMENT MAKER 09/09/2024 2:13 AM REINFORCEMENT MAKER Narrative [facility] - 09/11/2024 10:10 AM REINFORCEMENT MAKER Urine culture reflexed based upon urinalysis results. Testing performed by [facility] Microbiology Laboratory ([phone]) Organism Antibiotic Method Susceptibility Pseudomonas aeruginosa Aztreonam INTERPRETATION Susceptible Pseudomonas aeruginosa Ceftazidime INTERPRETATION Susceptible Pseudomonas aeruginosa Ciprofloxacin INTERPRETATION Susceptible Pseudomonas aeruginosa Cefepime INTERPRETATION Susceptible Pseudomonas aeruginosa Amikacin INTERPRETATION Susceptible Pseudomonas aeruginosa Imipenem INTERPRETATION Susceptible Pseudomonas aeruginosa Meropenem INTERPRETATION Susceptible Pseudomonas aeruginosa Piperacillin/Tazobactam INTERPR ETATION Susceptible Pseudomonas aeruginosa Tobramycin INTERPRETATION Susceptible Felipa Murphy DO LAB MICROBIOLOGY - GENERAL ORDE RABLES Final Result Performing Organization Address City/[facility]/ZIP Co de Phone Number [address] [place] [address] * Troponin T high-sensitivity series (baseline, 2hr, 4hr, 6hr) (09/08/2024 8:01 PM REINFORCEMENT MAKER) Trop T hs 15 <=22 ng/L Comment: Interpretive Data For further hscTnT resources including the diagnostic algorithm and an aid in interpretation, copy and paste this link: https://nrl.testcatalog.org/show/hsTrop Current Interpretive Data last revised 2020. Blood 09/08/2024 8:01 PM REINFORCEMENT MAKER 09/08/2024 8:42 PM REINFORCEMENT MAKER us Tyrone Campbell NP LAB BLOOD ORDERABLES Final Resul t [facility] [address] [facility] [place] [address] * eGFR (09/08/2024 8:01 PM REINFORCEMENT MAKER) Pathologist [facility] eGFR 88 >=60 mL/min/1. 73 m2 Comment: Interpretive Data Reference Interval Normal >/= 90 mL/min/1.73m2 Mildly decreased* 60 - 89 mL/min/1.73m2 Mildly to moderately decreased 45 - 59 mL/min/1.73m2 Moderately to severely decreased 30 - 44 mL/min/1.73m2 Severely decreased 15 - 29 mL/min/1.73m2 Kidney Failure < 15 mL/min/1.73m2 *Relative to young adult level Estimated glomerular filtration rate is determined by the 2020 CKD-EPI equation recommended by the National Kidney Foundation (A Unifying Approach to GFR Estimation: Recommendations of the NKF-ASK Task Force on Reassessing the Inclusion of Race in Diagnosing Kidney Disease, JASN 202). The CKD-EPI equation should not be used for patients with unstable renal function and has not been validated in children and those over 70. Current interpretive data was last reviewed 2021. Blood 09/08/2024 8:01 PM REINFORCEMENT MAKER 09/08/2024 8:42 PM REINFORCEMENT MAKER us Sampsonjohana Campbell KATIE LAB BLOOD ORDERABLES Final Resul t [facility] [address] [facility] [place] [address] * (ABNORMAL) Differential, auto (09/08/2024 8:01 PM REINFORCEMENT MAKER) Neutrophil abs 4.6 1.5 - 6.5 K/cumm Imm gran abs 0.0 0.0 - 0.1 K/cumm [facility] Lymphocyte abs 2.4 0.8 - 3.3 K/cumm [facility] Monocyte abs 1.2(H) 0.2 - 0.8 K/cumm [facility] Eosinophil abs 0.4 0.0 - 0.5 K/cumm [facility] Basophil abs 0.1 0.0 - 0.1 K/cumm [facility] Neutrophil pct 52.9 % [facility] Comment: Interpretive Data Percent cell count reference ranges are not reported, since discordance with absolute values may lead to misinterpretation of CBC data. Current Interpretive Data was last revised on 2017. Imm gran pct 0.2 % [facility] Comment: Interpretive Data Percent cell count reference ranges are not reported, since discordance with absolute values may lead to misinterpretation of CBC data. Current Interpretive Data was last revised on 2017. Lymphocyte pct 27.3 % [facility] Comment: Interpretive Data Percent cell count reference ranges are not reported, since discordance with absolute values may lead to misinterpretation of CBC data. Current Interpretive Data was last revised on 2017. Monocyte pct 14.0 % [facility] Comment: Interpretive Data Percent cell count reference ranges are not reported, since discordance with absolute values may lead to misinterpretation of CBC data. Current Interpretive Data was last revised on 2017. Eosinophil pct 4.6 % [facility] Comment: Interpretive Data Percent cell count reference ranges are not reported, since discordance with absolute values may lead to misinterpretation of CBC data. Current Interpretive Data was last revised on 2017. Basophil pct 1.0 % [facility] Comment: Interpretive Data Percent cell count reference ranges are not reported, since discordance with absolute values may lead to misinterpretation of CBC data. Current Interpretive Data was last revised on 2017. Blood 09/08/2024 8:01 PM REINFORCEMENT MAKER 09/08/2024 8:15 PM REINFORCEMENT MAKER Tyrone Campbell NP LAB BLOOD ORDERABLES Final Resul t Performing Organization Address [facility] de Phone Number [facility] [address] [phone] * (ABNORMAL) CBC with auto differential (09/08/2024 8:01 PM REINFORCEMENT MAKER) WBC 8.7 3.8 - 9.9 K/cumm Hgb 10.9(L) 13.0 - 17.5 g/dL [facility] Hct 34.5(L) 38.9 - 50.3 % [facility] Plt 505(H) 150 - 400 K/cumm [facility] MPV 8.4(L) 9.1 - 12.3 fL [facility] RBC 4.15(L) 4.30 - 5.80 M/cumm [facility] MCV 83.1 81.3 - 96.4 fL [facility] MCH 26.3(L) 27.1 - 33.3 pg [facility] MCHC 31.6(L) 32.3 - 35.7 g/dL [facility] RDW CV 14.6 11.1 - 14.9 % [facility] RDW SD 44.0 35.7 - 48.1 fL [facility] NRBC abs 0.00 0.00 - 0.01 K/cumm [facility] Blood 09/08/2024 8:01 PM REINFORCEMENT MAKER 09/08/2024 8:15 PM REINFORCEMENT MAKER Tyrone Campbell NP LAB BLOOD ORDERABLES Final Resul t Performing Organization Address [facility] Co de Phone Number [facility] [address] [address] * (ABNORMAL) Comprehensive metabolic panel (09/08/2024 8:01 PM REINFORCEMENT MAKER) Sodium 134(L) 135 - 145 mmol/L Potassium, pl 4.8 3.3 - 4.9 mmol/L [facility] Chloride 97 97 - 110 mmol/L [facility] CO2 25 22 - 32 mmol/L [facility] Anion gap 12 2 - 15 mmol/L [facility] BUN 17 6 - 25 mg/dL [facility] Creatinine 0.90 0.80 - 1.30 mg/dL [facility] Glucose 149 70 - 199 mg/dL [facility] Comment: Interpretive Data Fasting glucose >/= 126 mg/dl is diagnostic for diabetes. Fasting is defined as no caloric intake for at least 8 hours. Fasting glucose between 100 mg/dl to 125 mg/dl is diagnostic of prediabetes. In a patient with classic symptoms of hyperglycemia or hyperglycemic crisis, a random glucose >/= 200 mg/dl is diagnostic for diabetes. In the absence of unequivocal hyperglycemia, results should be confirmed by repeat testing. The classification and Diagnosis of Diabetes Diabetes Care 202; 46: S19-S40. Current interpretive data was last revised 2022. Calcium 10.4(H) 8.5 - 10.3 mg/dL [facility] Bilirubin, total 0.2 0.1 - 1.2 mg/dL [facility] Protein, pl 8.1 6.5 - 8.5 g/dL [facility] Albumin 4.4 3.5 - 5.0 g/dL [facility] Alk phos 125 40 - 130 Units/L [facility] ALT 5(L) 7 - 55 Units/L [facility] AST 18 10 - 50 Units/L [facility] Blood 09/08/2024 8:01 PM REINFORCEMENT MAKER 09/08/2024 8:42 PM REINFORCEMENT MAKER us Tyrone Campbell NP LAB BLOOD ORDERABLES Final Resul t [facility] [address] [facility] [place] [address] * NM Bone Imaging Whole Body (09/05/2024 2:44 PM REINFORCEMENT MAKER) Anatomical Region Laterality Modality N/A Nuclear Medicine 09/05/2024 4:45 PM REINFORCEMENT MAKER Impressions 09/05/2024 4:45 PM REINFORCEMENT MAKER MULTIPLE METASTATIC FOCI ARE SEEN IN THE RIBS AND SPINE NOTED ABOVE. Electronically signed by: Jose Narvaez M.D. Narrative 09/05/2024 4:45 PM REINFORCEMENT MAKER EXAMINATION: IN BONE IMAGING WHOLE BODY HISTORY: Staging prostate cancer ORDER DATE: 09/05/2024 9:00 AM TECHNIQUE: A whole body skeletal survey with anterior and posterior imaging was obtained in addition to imaging with a smaller FOV of the thoracic and abdominal regions and skull. The imaging study utilized 23.5 mCi of technetium labeled MDP. FINDINGS: There are multiple foci of increased activity throughout the bilateral ribs some of which are more clearly identified an anterior imaging is some and posterior imaging. This intense activity in one of the mid thoracic vertebra probably a and also at the L3 level and the L5 level. Small foci of increased activity are seen near each SI joint and medial iliac wing as well as the left iliac crest. A tiny intense focus of increased activity is situated near the costovertebral junction of the left 3rd or 4th rib. The calvarium demonstrated normal distribution of isotope. On anterior imaging there are several small discrete of ill-defined increased activity in the region of the orbits and mid facial region. There is mild diffuse increased activity which is relatively symmetric in the knee and shoulder joints consistent with osteoarthritic changes. Prominent but symmetric increased activity at the 1st carpal metacarpal joints of each hand is present along with some of the PIP joints of each hand consistent with osteoarthritis.. There is symmetric renal activity and excretion of the isotope is noted bilaterally with resulting isotope accumulating within the urinary bladder. Procedure Note Jose Narvaez MD - 09/05/2024 EXAMINATION: NM BONE IMAGING WHOLE BODY HISTORY: Staging prostate cancer ORDER DATE: 09/05/2024 9:00 AM TECHNIQUE: A whole body skeletal survey with anterior and posterior imaging was obtained in addition to imaging with a smaller FOV of the thoracic and abdominal regions and skull. The imaging study utilized 23.5 mCi of technetium labeled MDP. FINDINGS: There are multiple foci of increased activity throughout the bilateral ribs some of which are more clearly identified an anterior imaging is some and posterior imaging. This intense activity in one of the mid thoracic vertebra probably a and also at the L3 level and the L5 level. Small foci of increased activity are seen near each SI joint and medial iliac wing as well as the left iliac crest. A tiny intense focus of increased activity is situated near the costovertebral junction of the left 3rd or 4th rib. The calvarium demonstrated normal distribution of isotope. On anterior imaging there are several small discrete of ill-defined increased activity in the region of the orbits and mid facial region. There is mild diffuse increased activity which is relatively symmetric in the knee and shoulder joints consistent with osteoarthritic changes. Prominent but symmetric increased activity at the 1st carpal metacarpal joints of each hand is present along with some of the PIP joints of each hand consistent with osteoarthritis.. There is symmetric renal activity and excretion of the isotope is noted bilaterally with resulting isotope accumulating within the urinary bladder. IMPRESSION: MULTIPLE METASTATIC FOCI ARE SEEN IN THE RIBS AND SPINE NOTED ABOVE. Electronically signed by: Jose Narvaez M.D. us Stefano Hernandez MD IMG NM PROCEDURES Final Res ult * MRI Thoracic Spine W WO Contrast (09/05/2024 9:42 AM REINFORCEMENT MAKER) Anatomical Region Laterality Modality Spine N/A Magnetic Resonan ce 09/06/2024 8:51 AM REINFORCEMENT MAKER Impressions 09/06/2024 8:51 AM REINFORCEMENT MAKER Diffuse thoracic vertebral osseous metastases with moderate T7 pathologic compression fracture, retropulsion, minimal ventral epidural tumor and mild canal stenosis. Mid-lower thoracic predominant disc degeneration facet arthropathy as above. Electronically signed by: Toyin Jane M.D. Narrative 09/06/2024 8:51 AM REINFORCEMENT MAKER Examination: MRI of thoracic spine without and with contrast: History: further evaluate T7 lesion on PET, with compression deformity Technique: Multiplanar multisequence magnetic resonance imaging examination of the thoracic spine was performed using 15 mL of intravenous gadoterate meglumine. Comparison:PET CT 08/09/2024. Findings: Multiple ill-defined T1 hypointense, STIR hyperintense heterogeneous enhancing thoracic vertebral body lesions are seen with mild diffuse involvement T3-T5, T7, T11, T12 and L1 consistent with metastatic disease. Scattered posterior element involvement is noted especially T5 and T7 as well as multiple ribs and transverse processes including left T3-T4, right T5 and left T6 bilateral T7, left T8. A T7 pathologic compression fracture is seen with marrow abnormality extending from the body into the pedicles, moderate loss of height, posterior vertebral body expansion , retropulsion, and canal compromise. Linear ventral epidural enhancement is seen extending more to the left with ventral sac effacement, and mild canal compromise but no cord compression.. Thoracic vertebral height and alignment is otherwise maintained. There is multilevel mid and lower thoracic disc degeneration and facet arthropathy, at [id number]-L1, worse T9-T10 where there is marked facet arthropathy encroaching on the thecal sac. The thoracic cord is normal in signal and size without abnormal enhancement. Procedure Note Toyin Jane MD - 09/06/2024 Examination: MRI of thoracic spine without and with contrast: History: further evaluate T7 lesion on PET, with compression deformity Technique: Multiplanar multisequence magnetic resonance imaging examination of the thoracic spine was performed using 15 mL of intravenous gadoterate meglumine. Comparison:PET CT 08/09/2024. Findings: Multiple ill-defined T1 hypointense, STIR hyperintense heterogeneous enhancing thoracic vertebral body lesions are seen with mild diffuse involvement T3-T5, T7, T11, T12 and L1 consistent with metastatic disease. Scattered posterior element involvement is noted especially T5 and T7 as well as multiple ribs and transverse processes including left T3-T4, right T5 and left T6 bilateral T7, left T8. A T7 pathologic compression fracture is seen with marrow abnormality extending from the body into the pedicles, moderate loss of height, posterior vertebral body expansion , retropulsion, and canal compromise. Linear ventral epidural enhancement is seen extending more to the left with ventral sac effacement, and mild canal compromise but no cord compression.. Thoracic vertebral height and alignment is otherwise maintained. There is multilevel mid and lower thoracic disc degeneration and facet arthropathy, at [id number]-L1, worse T9-T10 where there is marked facet arthropathy encroaching on the thecal sac. The thoracic cord is normal in signal and size without abnormal enhancement. IMPRESSION: Diffuse thoracic vertebral osseous metastases with moderate T7 pathologic compression fracture, retropulsion, minimal ventral epidural tumor and mild canal stenosis. Mid-lower thoracic predominant disc degeneration facet arthropathy as above. Electronically signed by: Toyin Jane M.D. us Stefano Hernandez MD IM MRI PROCEDURES Final Re sult * eGFR (08/26/2024 10:56 AM REINFORCEMENT MAKER) eGFR >90 >=60 mL/min/1. 73 m2 Comment: Interpretive Data Reference Interval Normal >/= 90 mL/min/1.73m2 Mildly decreased* 60 - 89 mL/min/1.73m2 Mildly to moderately decreased 45 - 59 mL/min/1.73m2 Moderately to severely decreased 30 - 44 mL/min/1.73m2 Severely decreased 15 - 29 mL/min/1.73m2 Kidney Failure < 15 mL/min/1.73m2 *Relative to young adult level Estimated glomerular filtration rate is determined by the 2020 CKD-EPI equation recommended by the [employer] (A Unifying Approach to GFR Estimation: Recommendations of the NKF-ASK Task Force on Reassessing the Inclusion of Race in Diagnosing Kidney Disease, JASN 2020). The CKD-EPI equation should not be used for patients with unstable renal function and has not been validated in children and those over 70. Current interpretive data was last reviewed 2021. Blood 08/26/2024 10:5 6 AM REINFORCEMENT MAKER 08/26/2024 10:56 AM REINFORCEMENT MAKER us Stefano Hernandez MD LAB BLOOD ORDERABLES Final Result [facility] [place] [address] * (ABNORMAL) Differential, auto (08/26/2024 10:56 AM REINFORCEMENT MAKER) Pathologist [facility] Neutrophil abs 6.6(H) 1.5 - 6.5 K/cumm Comment:Testing performed by : [facility], [address] [place] [phone] Imm gran abs 0.0 0.0 - 0.1 K/cumm [facility] Lymphocyte abs 2.3 0.8 - 3.3 K/cumm [facility] Monocyte abs 1.1(H) 0.2 - 0.8 K/cumm [facility] Eosinophil abs 0.4 0.0 - 0.5 K/cumm [facility] Basophil abs 0.1 0.0 - 0.1 K/cumm [facility] Neutrophil pct 63.6 % [facility] Comment: Interpretive Data Percent cell count reference ranges are not reported, since discordance with absolute values may lead to misinterpretation of CBC data. Current Interpretive Data was last revised on 2017. Imm gran pct 0.4 % [facility] Comment: Interpretive Data Percent cell count reference ranges are not reported, since discordance with absolute values may lead to misinterpretation of CBC data. Current Interpretive Data was last revised on 2017. Lymphocyte pct 21.7 % [facility] Comment: Interpretive Data Percent cell count reference ranges are not reported, since discordance with absolute values may lead to misinterpretation of CBC data. Current Interpretive Data was last revised on 2017. Monocyte pct 10.3 % [facility] Comment: Interpretive Data Percent cell count reference ranges are not reported, since discordance with absolute values may lead to misinterpretation of CBC data. Current Interpretive Data was last revised on 2017. Eosinophil pct 3.4 % [facility] Comment: Interpretive Data Percent cell count reference ranges are not reported, since discordance with absolute values may lead to misinterpretation of CBC data. Current Interpretive Data was last revised on 2017. Basophil pct 0.6 % [facility] Comment: Interpretive Data Percent cell count reference ranges are not reported, since discordance with absolute values may lead to misinterpretation of CBC data. Current Interpretive Data was last revised on 2017. Blood 08/26/2024 10:5 6 AM REINFORCEMENT MAKER 08/26/2024 10:56 AM REINFORCEMENT MAKER us Stefano Hernandez MD LAB BLOOD ORDERABLES Final Result [facility] [place] [address] * (ABNORMAL) CBC with auto differential (08/26/2024 10:56 AM REINFORCEMENT MAKER) WBC 10.4(H) 3.8 - 9.9 K/cumm Comment:Testing performed by : [facility], [address] [place] [address] Hgb 10.1(L) 13.0 - 17.5 g/dL [facility] Comment:Testing performed by : [address] [address] Hct 31.5(L) 38.9 - 50.3 % [facility] Comment:Testing performed by : [facility], [address] [place] [id number] Plt 435(H) 150 - 400 K/cumm [facility] Comment:Testing performed by : [facility], [address] [place] [phone] MPV 8.1(L) 9.1 - 12.3 fL [facility] RBC 3.74(L) 4.30 - 5.80 M/cumm [facility] MCV 84.2 81.3 - 96.4 fL [facility] MCH 27.0(L) 27.1 - 33.3 pg [facility] MCHC 32.1(L) 32.3 - 35.7 g/dL [facility] RDW CV 13.9 11.1 - 14.9 % [facility] RDW SD 43.1 35.7 - 48.1 fL [facility] NRBC abs 0.00 0.00 - 0.01 K/cumm [facility] Blood 08/26/2024 10:5 6 AM REINFORCEMENT MAKER 08/26/2024 10:56 AM REINFORCEMENT MAKER us Stefano Hernandez MD LAB BLOOD ORDERABLES Final Result [facility] [place] [address] * (ABNORMAL) Total testosterone (08/26/2024 10:56 AM REINFORCEMENT MAKER) [facility] Testosterone 184.0(L) 193.0 - 740.0 ng/dL Blood 08/26/2024 10:5 6 AM REINFORCEMENT MAKER 08/26/2024 12:55 PM REINFORCEMENT MAKER Stefano Hernandez MD LAB BLOOD ORDERABLES Final Result Performing Organization Address City/[facility] Co de Phone Number [facility] [place] [address] * (ABNORMAL) PSA diagnostic (08/26/2024 10:56 AM REINFORCEMENT MAKER) PSA-Total 19.40(H) <=6.20 ng/mL Comment: Interpretive Data AGE SEX REFERENCE INTERVAL 0 minutes-150 years Female None 0 minutes-49 years Male None 50-59 years Male 0-3.90 60-69 years Male 0-5.40 70-79 years Male 0-6.20 80-150 years Male 0-6.20 The Luz PSA Total assay procedure was used. Results from different manufacturers or methods may not be comparable. Serial testing should be performed using the same method. Current interpretive data last revised 21. Blood 08/26/2024 10:5 6 AM REINFORCEMENT MAKER 08/26/2024 12:55 PM REINFORCEMENT MAKER Stefano Hernandez MD LAB BLOOD ORDERABLES Final Result Performing Organization Address [facility] de Phone Number [facility] [place] [address] * (ABNORMAL) Comprehensive metabolic panel (08/26/2024 10:56 AM REINFORCEMENT MAKER) Pathologist [facility] Sodium 131(L) 135 - 145 mmol/L Comment:Testing performed by : [facility], [address] [place] [address] Potassium, pl 4.6 3.3 - 4.9 mmol/L [facility] Chloride 95(L) 97 - 110 mmol/L [facility] CO2 30 22 - 32 mmol/L [facility] Anion gap 6 2 - 15 mmol/L [facility] BUN 17 6 - 25 mg/dL [facility] Creatinine 0.81 0.80 - 1.30 mg/dL [facility] Glucose 129 70 - 199 mg/dL [facility] Comment: Interpretive Data Fasting glucose >/= 126 mg/dl is diagnostic for diabetes. Fasting is defined as no caloric intake for at least 8 hours. Fasting glucose between 100 mg/dl to 125 mg/dl is diagnostic of prediabetes. In a patient with classic symptoms of hyperglycemia or hyperglycemic crisis, a random glucose >/= 200 mg/dl is diagnostic for diabetes. In the absence of unequivocal hyperglycemia, results should be confirmed by repeat testing. The classification and Diagnosis of Diabetes Diabetes Care 2021; 46: S19-S40. Current interpretive data was last revised 2022. Calcium 9.7 8.5 - 10.3 mg/dL [facility] Bilirubin, total 0.2 0.1 - 1.2 mg/dL [facility] Comment:Repeated and verifie d. Protein, pl 7.9 6.5 - 8.5 g/dL [facility] Albumin 4.3 3.5 - 5.0 g/dL [facility] Alk phos 79 40 - 130 Units/L [facility] ALT 9 7 - 55 Units/L [facility] AST 17 10 - 50 Units/L [facility] Blood 08/26/2024 10:5 6 AM REINFORCEMENT MAKER 08/26/2024 10:56 AM REINFORCEMENT MAKER us Stefano Hernandez MD LAB BLOOD ORDERABLES Final Result [facility] [place] [address] * Total testosterone (08/19/2024 11:56 AM REINFORCEMENT MAKER) Testosterone 282.00 193.00 - 740.00 ng/dL Blood 08/19/2024 11:5 6 AM REINFORCEMENT MAKER 08/19/2024 2:40 PM REINFORCEMENT MAKER us Pardeep Tapia MD LAB BLOOD ORDERABLES Final Result [facility] [address] [facility] [place] [address] * PET/CT Prostate Cancer PSMA Skull to Thigh (08/09/2024 1:29 PM REINFORCEMENT MAKER) Anatomical Region Laterality Modality N/A Positron Emissio n Tomography (PET) 08/09/2024 2:20 PM REINFORCEMENT MAKER Impressions 08/09/2024 2:55 PM REINFORCEMENT MAKER 1. Intensely PSMA-avid enlarged and irregular prostate gland which invades the urinary bladder and right seminal vesicle compatible with biopsy-proven prostate cancer. 2. Intensely PSMA-avid lymphadenopathy above and below the diaphragm compatible with metastatic disease as described in detail above, including a large right pelvic sidewall tristen conglomerate. 3. Widespread intensely PSMA-avid osseous metastatic disease involving the axial and proximal appendicular skeleton, including a T7 vertebral body mild pathologic compression deformity. 4. Numerous intensely PSMA-avid pulmonary metastases throughout both lungs. 5. 2.5 cm hypoattenuating left hemithyroid nodule without increased PSMA-avidity. If not previously performed, recommend further evaluation with thyroid ultrasound. Dictated by: Sukhdeep Mendoza MD The radiology attending physician has personally reviewed this study, and had reviewed and/or edited this written report and agrees with it. Electronically signed by: DO Lynn Bailey 08/09/2024 2:55 PM REINFORCEMENT MAKER EXAMINATION: PSMA-PET/CT DATE OF STUDY: 08/09/2024 SCANNER: [facility] RADIOPHARMACEUTICAL: 10.49 mCi F-18 DCFPyL (Piflufolastat) i.v. Injection site: Right antecubital HISTORY: 78-year-old man with prostate cancer diagnosed on 07/30/2024, with Ana 4+5 = 9 prostate adenocarcinoma via transurethral resection of bladder mass. The most recently obtained PSA on 06/24/2024 is 19.96 ng/mL. The study is requested for initial staging. Initial treatment strategy. TECHNIQUE: After intravenous administration of tracer, noncontrast CT images were obtained for attenuation correction and for fusion with emission PET images to allow for anatomical localization of PET findings. Emission PET images were then obtained. The study was interpreted on the [employer] workstation. The total scanned area was mid thighs to skull vertex. Images of the body were obtained starting 60 minutes after injection of tracer. REFERENCE TISSUE MAXIMUM SUVs: Parotid gland 11.7; Liver 5.1; Blood pool 1.8 Focal PSMA tracer uptake is graded as follows: * Faint: above background to blood pool * Mild: above blood pool to liver * Moderate: above liver to salivary glands * Intense: similar to or above salivary glands COMPARISON: None FINDINGS: Prostate/Prostate bed: Intense radiotracer uptake throughout a markedly enlarged and irregular prostate gland which invades the right seminal vesicle and bladder base. Regional lymph nodes: Numerous intensely radiotracer avid and enlarged bilateral common iliac, bilateral external iliac, bilateral internal iliac, and bilateral mesorectal lymph nodes are noted. For reference, there is an intensely radiotracer avid 3.6 x 7.1 cm right pelvic sidewall tristen conglomerate with areas of central necrosis (axial image 369). Extra-pelvic lymph nodes: Intensely radiotracer avid subcarinal and bilateral hilar lymph nodes are noted (axial image 187). Bone: Widespread intensely radiotracer avid osseous lesions involving the axial and proximal appendicular skeleton, some of which have ill-defined lytic and sclerotic CT correlates. Osseous sites involved include the entire spine, bilateral glenoid and scapulae, manubrium, multiple bilateral ribs, sacrum, bilateral iliac bones, and proximal right femur. Additionally, there is an associated mild pathologic compression deformity of T7. Visceral: Numerous intensely radiotracer avid pulmonary nodules scattered throughout both lungs. For reference, there is an intensely radiotracer avid 1.1 cm right middle lobe nodule (axial image 215) and a 7 mm intensely radiotracer avid lingula nodule (axial image 195). Additional CT findings: Dense carotid artery bifurcation calcifications. 2.5 cm partially calcified left hemithyroid hypoattenuating nodule. Severe three-vessel coronary artery calcifications. Dense atherosclerotic calcifications of the thoracic and abdominal aorta and their branches. Vascular calcifications in both kidneys. Punctate pancreatic calcifications, which may represent sequela of chronic pancreatitis. Small fat-containing left inguinal hernia. There is colonic diverticulosis without evidence of diverticulitis. Small fat-containing periumbilical hernia. Multilevel degenerative changes throughout the spine. Procedure Note Jay Hughes DO - 08/09/2024 EXAMINATION: PSMA-PET/CT DATE OF STUDY: 08/09/2024 SCANNER: [facility] RADIOPHARMACEUTICAL: 10.49 mCi F-18 DCFPyL (Piflufolastat) i.v. Injection site: Right antecubital HISTORY: 78-year-old man with prostate cancer diagnosed on 07/30/2024, with Ana 4+5 = 9 prostate adenocarcinoma via transurethral resection of bladder mass. The most recently obtained PSA on 06/24/2024 is 19.96 ng/mL. The study is requested for initial staging. Initial treatment strategy. TECHNIQUE: After intravenous administration of tracer, noncontrast CT images were obtained for attenuation correction and for fusion with emission PET images to allow for anatomical localization of PET findings. Emission PET images were then obtained. The study was interpreted on the [employer] workstation. The total scanned area was mid thighs to skull vertex. Images of the body were obtained starting 60 minutes after injection of tracer. REFERENCE TISSUE MAXIMUM SUVs: Parotid gland 11.7; Liver 5.1; Blood pool 1.8 Focal PSMA tracer uptake is graded as follows: * Faint: above background to blood pool * Mild: above blood pool to liver * Moderate: above liver to salivary glands * Intense: similar to or above salivary glands COMPARISON: None FINDINGS: Prostate/Prostate bed: Intense radiotracer uptake throughout a markedly enlarged and irregular prostate gland which invades the right seminal vesicle and bladder base. Regional lymph nodes: Numerous intensely radiotracer avid and enlarged bilateral common iliac, bilateral external iliac, bilateral internal iliac, and bilateral mesorectal lymph nodes are noted. For reference, there is an intensely radiotracer avid 3.6 x 7.1 cm right pelvic sidewall tristen conglomerate with areas of central necrosis (axial image 369). Extra-pelvic lymph nodes: Intensely radiotracer avid subcarinal and bilateral hilar lymph nodes are noted (axial image 187). Bone: Widespread intensely radiotracer avid osseous lesions involving the axial and proximal appendicular skeleton, some of which have ill-defined lytic and sclerotic CT correlates. Osseous sites involved include the entire spine, bilateral glenoid and scapulae, manubrium, multiple bilateral ribs, sacrum, bilateral iliac bones, and proximal right femur. Additionally, there is an associated mild pathologic compression deformity of T7. Visceral: Numerous intensely radiotracer avid pulmonary nodules scattered throughout both lungs. For reference, there is an intensely radiotracer avid 1.1 cm right middle lobe nodule (axial image 215) and a 7 mm intensely radiotracer avid lingula nodule (axial image 195). Additional CT findings: Dense carotid artery bifurcation calcifications. 2.5 cm partially calcified left hemithyroid hypoattenuating nodule. Severe three-vessel coronary artery calcifications. Dense atherosclerotic calcifications of the thoracic and abdominal aorta and their branches. Vascular calcifications in both kidneys. Punctate pancreatic calcifications, which may represent sequela of chronic pancreatitis. Small fat-containing left inguinal hernia. There is colonic diverticulosis without evidence of diverticulitis. Small fat-containing periumbilical hernia. Multilevel degenerative changes throughout the spine. IMPRESSION: 1. Intensely PSMA-avid enlarged and irregular prostate gland which invades the urinary bladder and right seminal vesicle compatible with biopsy-proven prostate cancer. 2. Intensely PSMA-avid lymphadenopathy above and below the diaphragm compatible with metastatic disease as described in detail above, including a large right pelvic sidewall tristen conglomerate. 3. Widespread intensely PSMA-avid osseous metastatic disease involving the axial and proximal appendicular skeleton, including a T7 vertebral body mild pathologic compression deformity. 4. Numerous intensely PSMA-avid pulmonary metastases throughout both lungs. 5. 2.5 cm hypoattenuating left hemithyroid nodule without increased PSMA-avidity. If not previously performed, recommend further evaluation with thyroid ultrasound. Dictated by: Sukhdeep Mendoza MD The radiology attending physician has personally reviewed this study, and had reviewed and/or edited this written report and agrees with it. Electronically signed by: Jay Hughes DO us Yousef Camron Tapia MD IMG PET PROCEDURES F inal Result * US Guidance Intraoperative (07/30/2024 8:53 AM REINFORCEMENT MAKER) Anatomical Region Laterality Modality Entire body N/A Ultrasound 07/30/2024 3:53 PM REINFORCEMENT MAKER Narrative 07/30/2024 3:54 PM REINFORCEMENT MAKER EXAM DESCRIPTION: US GUIDANCE INTRAOPERATIVE REASON FOR STUDY: Bladder mass TECHNIQUE: Fluoroscopic guidance was performed for prostate biopsy. A radiologist was not present for the examination. COMPARISON: None FINDINGS: Fluoroscopic guidance was provided for a prostate biopsy performed by Urology. A radiologist was not present for the examination. IMPRESSION: 1. Fluoroscopic guidance for prostate biopsy procedure. Please refer to the procedure note for further findings. THIS IS AN ELECTRONICALLY VERIFIED FINAL REPORT 07/30/2024 3:54 PM - Electronically signed by Duglas Wills M.D. AG T: Report ID: [id number] Reading Location: [id number] Procedure Note Duglas Wills MD - 07/30/2024 EXAM DESCRIPTION: US GUIDANCE INTRAOPERATIVE REASON FOR STUDY: Bladder mass TECHNIQUE: Fluoroscopic guidance was performed for prostate biopsy. A radiologist was not present for the examination. COMPARISON: None FINDINGS: Fluoroscopic guidance was provided for a prostate biopsyperformed by Urology. A radiologist was not present for the examination. IMPRESSION: 1. Fluoroscopic guidance for prostate biopsy procedure. Please refer tothe procedure note for further findings. THIS IS AN ELECTRONICALLY VERIFIED FINAL REPORT 07/30/2024 3:54 PM - Electronically signed by Duglas Wills M.D. AG T: Report ID: [id number] Reading Location: [id number] Pardeep Tapia MD IMG US PROCEDURES Fi nal Result * POCT glucose (07/30/2024 8:48 AM REINFORCEMENT MAKER) Glucose, POC 135 70 - 199 mg/dL Glucose comment 1 Use This Result AMNA GONZALEZ Blood 07/30/2024 8:48 AM REINFORCEMENT MAKER 07/30/2024 8:48 AM REINFORCEMENT MAKER Pardeep Tapia MD LAB POCT ORDERABLES - DEVICE Final Result SINDIELDA [address] [facility] [place] [address] * Surgical pathology (07/30/2024 8:21 AM REINFORCEMENT MAKER) Tissue specimen (specimen) (Bladder, biopsy) 07/30/2024 8:21 AM REINFORCEMENT MAKER Tissue specimen (specimen) (Prostate, Needle Biopsy) 07/30/2024 8:21 AM REINFORCEMENT MAKER Tissue specimen (specimen) (Prostate, Needle Biopsy) 07/30/2024 8:22 AM REINFORCEMENT MAKER Narrative PATHOLOGY [facility] - 08/02/2024 2:17 PM REINFORCEMENT MAKER [facility] Department of Pathology [address] [place] [address] Note to Patients: This report may contain a detailed description of human tissue sent by a health care provider to the laboratory for pathologic evaluation. The content of this report is essential for diagnosis and may provide important critical findings. This information may be unfamiliar to patients to review without a medical professional present. It is advised that the patient review this report in the presence of a health care provider who can answer questions and explain the details. Final Report Patient Name: MARTHA LORENZO : 1945 (Age: 78) Gender: M Address: [address] [place] [id number] Hospital #: [id number] Service: Surgery Location: Patient Type: [facility] Taken: 07/30/2024 Received: 07/30/2024 Accessioned: 07/30/2024 Reported: 08/02/2024 Physician(s): MD Sukhdeep Peoples M.D. Diagnosis: A. Bladder, biopsy: - Adenocarcinoma, consistent with prostatic primary. See comment B. Prostate, right lobe, biopsy: - Adenocarcinoma, Ana score 9 (4+5), prognostic group 5, involving 7 of 8 fragmented cores, and approximately 80% of the total core tissue - Cribriform pattern present - Perineural invasion present C. Prostate, left lobe, biopsy: - Adenocarcinoma, Fairwater score 9 (4+5), prognostic group 5, involving 9 of 9 fragmented cores, and approximately 85% of the total core tissue - Cribriform pattern present - Perineural invasion present Diagnosis Comment: Immunohistochemical stains performed on part A, with appropriate controls, show tumor cells with positivity for NKX3.1 and PSA, and negative for GATA3. This pattern and the morphology is consistent with carcinoma of prostatic origin. This result was flagged as significant and was sent to [facility] on 08/02/2024. Reason(s): To the best of our knowledge, this is the first diagnosis of this type of malignancy rendered for this patient. Benita Zimmerman M.D. Report Electronically Reviewed and Signed Out By Benita Zimmerman M.D. 08/02/2024 14:17:10 Specimen(s) Received: A: Bladder Biopsies B: Right prostate biopsy C: Left prostate biopsy Microscopic Description: Unless gross-only is specified, the final diagnosis for each specimen is based on a microscopic examination of each tissue sample. Clinical History: The patient is a 78-year-old man with a bladder tumor. Operative procedure: Cystoscopy with Transurethral resection of bladder tumor and transanal biopsy of prostate. Gross Description Received in three formalin jars labeled with the patient's identifiers. A. Labeled bladder biopsies and consists of three charles-red, rubbery tissue fragments ranging from 0.3-0.7 cm. The largest tissue fragment is bisected and the specimen is entirely submitted. Labeled A1. Jar 0. B. Labeled right prostate biopsy and consists of multiple charles-white tissue cores each measuring 0.1 cm in diameter, and ranging from 0.6-2.2 cm in length. Entirely submitted. Labeled B1 to B3. Jar 0. C. Labeled left prostate biopsy and consists of multiple charles-white tissue cores each measuring 0.1 cm in diameter, and ranging from 0.6-2.0 cm in length. Entirely submitted. Labeled C1 to C3. Jar 0. jjb/07/30/2024 11:46 SHARDA [place], CASS ([facility]) Microscopic slide review and interpretation for this case was performed at [facility], Department of Surgical Pathology, [address] [facility], [place] [id number], [place] [address] CLIA # [id number] The NKX3.1 test was performed at [facility], Department of Surgical Pathology, [address] [place] [address]. us Yousef Camron Tapia MD LAB PATHOLOGY ORDERA BLES Final Result PATHOLOGY [facility] * NC AN ELECTIVE ENDOTRACHEAL AIRWAY, NC AN PROCEDURE PLACEHOLDER (07/30/2024 7:50 AM REINFORCEMENT MAKER) Narrative Adelia Ulloa CRNA - 07/30/2024 7:50 AM REINFORCEMENT MAKER Adelia Ulloa CRNA 07/30/2024 7:52 AM Airway Patient location: OR Urgency: elective Indications for airway management: anesthesia Difficult airway: no Staff: Placed by: HEAVY DUTY PRESS OPERATOR: Adelia Ulloa CRNA Emergent airway documentation: Risks and benefits discussed: yes Consent obtained: yes Consent given by: patient Airway prep: Preoxygenated: yes Patient position: sniffing MILS maintained throughout: yes Mask difficulty assessment: 1 - vent by mask Spontaneous ventilation during airway: absent Sedation level during airway: GA Final airway details: Final airway type: endotracheal airway Tube type: ETT ETT size: 8.0 mm Cuffed: yes Technique used for successful ETT placement: direct laryngoscopy Devices/Methods used in placement: stylet Insertion site: oral Blade type: Chuy Blade size: 4 Cormack-Lehane (direct): grade I - full view of glottis Cuff volume: 7 mL Cuff inflated with: air ETT to gums: 23 cm Placement verified by: auscultation and CO2 detection Airway secured with: other Number of attempts: 1no Additional comments: Lodge tape us Kareem Rees MD ANESTHESIA ORDERABLES Fi nal Result * POCT glucose (07/30/2024 6:22 AM REINFORCEMENT MAKER) Glucose, POC 122 70 - 199 mg/dL Glucose comment 1 Use This Result AMNA GONZALEZ Blood 07/30/2024 6:22 AM REINFORCEMENT MAKER 07/30/2024 6:22 AM REINFORCEMENT MAKER us Pardeep Tapia MD LAB POCT ORDERABLES - DEVICE Final Result AMNA [address] [facility] [place] [address] from Last 3 Months Insurance [employer] MEDICARE [facility] Advance Directives For more information, please contact: [phone] * Full Code (Latest Code Status on File) Date Activated Date Inactivated Comments 09/09/2024 1:24 AM 09/11/2024 3:54 PM Care Teams Substation Engineer Relationship Specialty Start Date End Date Sukhdeep Martinez MD [address] [facility] [address] [place] [address] PCP - General Family Medicine 06/05/24 Stefano Hernandez MD [address] [facility] [address] DIV IM MEDICAL ONCOLOGY, [facility] [address] [place] [address] Medical Oncologist/Real Estate Photographer Medical Oncology 08/07/24 Pardeep Tapia MD [facility] [address] [address] Consulting Physician Urology 08/07/24 Sidney Arias MD [address] [place] [address] Radiation Oncologist Radiation Oncology 08/21/24 Raad Ahuja MD [address] [facility] [address] [place] [address] [place] [address] Consulting Physician Pain Management 09/20/24
--- OUTSIDE RECORDS SUMMARY | 2024-10-19 17:43 | XMS_ITS ---
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 Current Treatment and Therapy Plans DOCEtaxel + Darolutamide 21 day Cycles - Prostate* Plan Start Date:09/10/2024 Plan Provider:Stefano Hernandez MD Linked Problems Prostate cancer (HCC) Treatment Medications Current Day (Day 1 , Cycle 2 - Planned for 11/06/2024) Next Day (Day 1, Cycle 3 - Planned for 11/27/2024) darolutamide (NUBEQA)dexAMETHasone (DECADRON)DOCEtaxel (TAXOTERE)DOCEtaxel (TAXOTERE) IVPB in 250 mL (vial 20mg/mL) DOCEtaxeL (TAXOTERE) 114 mg in sodium chloride 0.9% (PVC-FREE) 250 mL IVPB DOCEtaxeL (TAXOTERE) 114 mg in sodium chloride 0.9% (PVC-FREE) 250 mL IVPB Leuprolide Every 3 Months - Prostate* Plan Start Date:09/18/2024 Plan Provider:Stefano Hernandez MD Linked Problems Prostate cancer (HCC) Treatment Medications Current Day (Day 1 , Cycle 2 - Planned for 12/11/2024) Next Day (Day 1, Cycle 3 - Planned for 03/05/2025) leuprolide (3 month) (ELIGARD)leuprolide (ELIGARD) leuprolide (3 month) (ELIGARD) subcutaneous injection 22.5 mg leuprolide (3 month) (ELIGARD) subcutaneous injection 22.5 mg Zoledronic Acid Every 12 Weeks* Plan Start Date:09/11/2024 Plan Provider:Stefano Hernandez MD Linked Problems Metastasis to bone (HCC)Pros webber cancer (HCC) Treatment Medications Current Day (Day 1 , Cycle 1 - Planned for 09/11/2024) Next Day (Day 1, Cycle 2 - Planned for 12/04/2024) No medications scheduled. No medications schedul ed. No medications scheduled. Past Treatment and Therapy Plans Oncology Chemotherapy Treatment Plan Name Start Date Discontinue Date Treatment Medications Discontinue Reason Plan Provider Cycles Triptorelin Every 3 Months - Prostate 09/11/2024 08/26/2024 triptorelin (TRELSTAR) Financial Stefano Hernandez MD Treatment not started Oncology Treatment (3) Plan Name Start Date Discontinue Date Treatment Medications Discontinue Reason Plan Provider Cycles Denosumab Every 12 Weeks 09/11/2024 08/26/2024 No medications scheduled. Financial Hernandez, Stefano Briggs MD Treatment not started Radiation Treatments (No Episode) * Course C1_[id number]_202410/07/2024 - 10/11/2024 Treatment Period Energy Fraction Dose Fractions Total Dose Plans Planned L2_SPINE 10/07/2024 - 10/11/2024 400 5 / 2,000 T7_SPINE 10/07/2024 - 10/11/2024 400 5 / 2,000 Reference Points Delivered LSPINE_DPV 10/07/2024 - 10/11/2024 2,000 TSPINE_DPV 10/07/2024 - 10/11/2024 2,000 Lifetime Dose Tracking * Chemical Lifetime Dose Automatic Entry Manual Entr y Fluoro Time 5.425 minutes 5.425 minutes 0 minutes Air kerma at the reference point (Ka,r) 102.77 mGy 1 02.77 mGy 0 mGy
--- OUTSIDE RECORDS SUMMARY | 2024-10-19 17:43 | XMS_ITS | Clinical Summary ---
Author Organization [facility] Address [address] [place] [address] Care Team Providers Care Receiving Barn Custodian Name Role Phone Sukhdeep Martinez MD Primary Care Provider [phone] Encounters Date Type Department Care Team Description 07/29/2024 7:46 AM AIR POLLUTION CONTROL ENGINEER - 07/29/2024 11:59 PM AIR POLLUTION CONTROL ENGINEER Hospital Encounter [facility] [address] [place] [address] Pardeep Gutierrez MD Discharge Disposition: Home or Self Care (Routine Discharge) 07/29/2024 Travel from Last 3 Months Immunizations Name Administration Dates Next Due MODERNA COVID-19 (12+) MRNA, LNP-S, PF, 100 MCG/ 0.5 ML DOSE 09/11/2020,08/14/2020 Social History Tobacco Use Types Packs/Day Years Used Date Smoking Tobacco: Never Assessed Sex and Gender Information Value Date Recorded Sex Assigned at Male 07/29/2024 7:39 AM AIR POLLUTION CONTROL ENGINEER Legal Sex Male 6:55 PM CDT Gender Identity Not on file Sexual Orientation Not on file Plan of Treatment Health Maintenance Due Date Last Done Comments Hepatitis C 1963 DTaP, Tdap and Td Vaccines ( 1 - Tdap) 1965 Zoster Vaccines (1 of 2) 1996 Annual Medicare Wellness Visit 09/30/2011 Pneumococcal Vaccine: 65+ Years (2 of 2 - PPSV23 or PCV20) 06/19/2020 06/19/2019 RSV Immunization or 60+ Years (1 - 1-dose 75+ series) 2021 COVID-19 Vaccine (3 - 2023-2 5 season) 2024 09/11/2020, 08/14/2020 Meningococcal B Vaccine Aged Out No l onger eligible based on patient's age to complete this topic Meningococcal Vaccine Aged Out No deysi sawyer eligible based on patient's age to complete this topic RSV Immunizations Under 20 Months Aged Out No longer eligible b ased on patient's age to complete this topic Procedures Procedure Name Priority Date/Time Associated Diagnosis Comments MRI PEL WWO CON EDMUNDO 07/29/2024 9:01 AM AIR POLLUTION CONTROL ENGINEER Abnormal PSA from Last 3 Months Results * MRI PEL WWO CON (07/29/2024 9:01 AM AIR POLLUTION CONTROL ENGINEER) Anatomical Region Laterality Modality Pelvis Magnetic Resonan ce 07/29/2024 2:04 PM AIR POLLUTION CONTROL ENGINEER Impressions 07/29/2024 2:13 PM AIR POLLUTION CONTROL ENGINEER IMPRESSION: 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 Mass measures 6.3 x 9.4 x 8 cm and is contiguous with the prostate/posterior bladder. There is mass effect on the rectum. Tumor is inseparable from the seminal vesicles and the neurovascular bundles. Small nodule of tumor in the posterior right bladder wall that partially projects into the bladder lumen. Large adenopathy in the pelvis Possibly metastatic bone nodules, indeterminate. Further malignancy workup is needed, including tissue diagnosis and PET/CT. Referred By: PARDEEP GUTIERREZ Interpreted By: Dakotah Jara MD, 07/29/2024 2:04 PM Narrative 07/29/2024 2:13 PM AIR POLLUTION CONTROL ENGINEER [address] [place] [address] Examination: MRI PEL WWO CON Exam time: 07/29/2024 8:23 AM Indication: Elevated PSA. Abnormal prostate. Biopsy tomorrow. Comparison: None Findings: MRI pelvis with and without contrast. Severely abnormal exam. There is a large mass in the pelvis that appears contiguous with the prostate gland and posterior bladder. This mass is measured on series 8 image 73. It is 6.3 x 9.4 x 8 cm size. It abuts into the rectum. Tumor is inseparable from the seminal vesicles and the neurovascular bundle. A enhancing nodule in the posterior right bladder wall measuring 16 mm is seen on series 10 image 412. This projects partially into the bladder lumen. Bilateral adenopathy is seen in the pelvis. Right-sided adenopathy is along the pelvic wall measuring as a cluster up to 6.3 cm. Lymph nodes on the left pelvic wall measuring up to 2.2 cm. There is also adenopathy in the common iliac region up the pelvis. Small foci of mottled to nodular bone signal appearance is seen on this study, indeterminate for metastasis. For example, series 3 image 11 there is a 1 cm T1 dark nodule in the left posterior acetabulum. Procedure Note Dakotah Jara MD - 07/29/2024 [place] [id number] [facility] [place] [address] Examination: MRI PEL WWO CON Exam time: 07/29/2024 8:23 AM Indication: Elevated PSA. Abnormal prostate. Biopsy tomorrow. Comparison: None Findings: MRI pelvis with and without contrast. Severely abnormal exam. There is a large mass in the pelvis that appearscontiguous with the prostate gland and posterior bladder. This mass ismeasured on series 8 image 73. It is 6.3 x 9.4 x 8 cm size. It abutsinto the rectum. Tumor is inseparable from the seminal vesicles and theneurovascular bundle. A enhancing nodule in the posterior right bladderwall measuring 16 mm is seen on series 10 image 412. This projectspartially into the bladder lumen. Bilateral adenopathy is seen in thepelvis. Right-sided adenopathy is along the pelvic wall measuring as acluster up to 6.3 cm. Lymph nodes on the left pelvic wall measuring up to2.2 cm. There is also adenopathy in the common iliac region up thepelvis. Small foci of mottled to nodular bone signal appearance is seenon this study, indeterminate for metastasis. For example, series 3 image11 there is a 1 cm T1 dark nodule in the left posterior acetabulum. 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 Mass measures 6.3 x 9.4 x 8 cm and is contiguous with theprostate/posterior bladder. There is mass effect on the rectum. Tumor is inseparable from the seminal vesicles and the neurovascularbundles. Small nodule of tumor in the posterior right bladder wall that partiallyprojects into the bladder lumen. Large adenopathy in the pelvis Possibly metastatic bone nodules, indeterminate. Further malignancy workup is needed, including tissue diagnosis andPET/CT. Referred By: PARDEEP GUTIERREZ Interpreted By: Dakotah Jara MD, 07/29/2024 2:04 PM us Pardeep Gutierrez MD MRI Final Re sult from Last 3 Months Insurance AET[employer] Care Teams Receiving Barn Custodian Relationship Specialty Start Date End Date Sukhdeep Martinez MD [address] [facility] [place] [id number] PCP - General FAMILY PRACTICE 06/03/24
--- OUTSIDE RECORDS SUMMARY | 2024-10-19 17:44 | XMS_ITS | Encounter Summary ---
Author Hub Preferred Language Nicaraguan Marital Status Hindu Affiliation Unknown Race White Ethnic Group Not or Lati no Author Organization [facility] Address [address] [place] [address] Care Team Providers Care Ice Cream Vendor Name Role Phone Sukhdeep Martinez MD Primary Care Provider [phone] Encounter Details Date Type Department Care Team ([facility] Contact Info) Description 12/15/2018 Abstract [facility] CONVERSION [address] [place] [address] , Generic Conversion, Social History Tobacco Use Types Packs/Day Years Used Date Smoking Tobacco: Never Assessed Sex and Gender Information Value Date Recorded Sex Assigned at Male 07/29/2024 7:39 AM VENETIAN BLIND ASSEMBLER Legal Sex Male 6:55 PM CDT Gender Identity Not on file Sexual Orientation Not on file documented as of this encounter Plan of Treatment Not on file documented as of this encounter Visit Diagnoses Not on filedocumented in this encounter Care Teams Ice Cream Vendor Relationship Specialty Start Date End Date Sukhdeep Martinez MD [address] [place] [id number] PCP - General FAMILY PRACTICE 06/03/24 documented as of this encounter
--- OUTSIDE RECORDS SUMMARY | 2024-10-19 17:44 | XMS_ITS | Clinical Summary ---
Author Organization [address] Address [facility] [place] [address] Care Team Providers Care Mathematical Technician Name Role Phone Sukhdeep Martinez MD Primary Care Provider [phone] Stefano Hernandez MD Unavailable [phone] Pardeep Tapia MD Unavailable [phone] Sidney Arias MD Unavailable [phone] Raad Ahuja MD Unavailable Allergies Active Allergy Reactions Criticality Noted Date [...] 08/26/2024 Prostate mass 07/30/2024 Bladder tumor 06/24/2024 Encounters Date Type Department Care Team Description 10/16/2024 10:45 AM CDT Infusion [facility] [place] [facility] [place] [address] [place] [address] Prostate cancer (HCC) (Primary Dx) 10/16/2024 10:30 AM CDT Lab [facility] Lab [address] [place], [place] [address]am [facility] [place] [address] Prostate cancer (HCC) 10/16/2024 10:00 AM CDT Office Visit [facility] [address] [place] [address] Stefano Hernandez MD Prostate cancer (HCC) (Primary Dx) 10/16/2024 9:30 AM CDT Lab [facility] [place] [address] Prostate cancer (HCC) 10/16/2024 Orders Only [facility] [place] [address] Stefano Hernandez MD 10/11/2024 11:00 AM CDT Treatment [facility] Medical Office Building 2 Radiation Oncology [address] [place] [address] Sidney Arias MD 10/11/2024 Completion of Therapy [facility] Medical Office Building 2 Radiation Oncology [address] [place] [address] Sidney Arias MD 10/11/2024 Orders Only RAD ONC TREATMENTS Miscellaneous, Not In File 10/11/2024 OTV [facility] Medical Office Building 2 Radiation Oncology [address] [place] [address] Sidney Arias MD 10/11/2024 Orders Only RAD ONC TREATMENTS Miscellaneous, Not In File 10/10/2024 11:00 AM CDT Treatment [facility] Medical Office Building 2 Radiation Oncology [address] [place] [address] 10/10/2024 Orders Only RAD ONC TREATMENTS Miscellaneous, Not In File 10/09/2024 1:00 PM CDT Treatment [facility] Medical Office Building 2 Radiation Oncology [address] [place] [address] 10/09/2024 Orders Only RAD ONC TREATMENTS Miscellaneous, Not In File 10/08/2024 11:00 AM CDT Treatment [facility] Medical Office Building 2 Radiation Oncology [address] [place] [address] 10/08/2024 Orders Only RAD ONC TREATMENTS Miscellaneous, Not In File 10/07/2024 11:15 AM CDT Treatment [facility] Medical Office Building 2 Radiation Oncology [address] [place] [address] Sidney Arias MD 10/07/2024 11:00 AM CDT Treatment [facility] Medical Office Building 2 Radiation Oncology [address] [place] [address] Sidney Arias MD 10/07/2024 Orders Only RAD ONC TREATMENTS Miscellaneous, Not In File 10/04/2024 Telephone [facility] [address] [place] [phone] Smita Taylor, RN 10/03/2024 Telephone [facility] [address] [place] [phone] Smita Taylor, RN 10/02/2024 7:05 PM CDT Treatment [facility] Medical Office Building 2 Radiation Oncology [address] [place] [address] 10/02/2024 Telephone [facility] [address] [place] [phone] Smita Taylor, RN 10/01/2024 10:00 AM CDT Treatment [facility] Medical Office Building 2 Radiation Oncology [address] [place] [address] Sidney Arias MD 10/01/2024 9:30 AM CDT Office Visit [facility] Medical Office Building 2 Radiation Oncology [address] [place] [address] Sidney Arias MD Malignant neoplasm of prostate (HCC) (Primary Dx) 09/23/2024 Telephone [facility] Medical Office Building 2 Radiation Oncology [address] [place] [address] Sandy Tate RN 09/20/2024 8:10 AM CDT - 09/20/2024 11:59 PM CDT Hospital Encounter [facility] Pain [address] [address] Raad Ahuja MD Closed wedge compression fracture of T7 vertebra with routine healing (Primary Dx); Closed compression fracture of L2 lumbar vertebra, with routine healing, subsequent encounter Discharge Disposition: Discharge to home or self care 09/20/2024 Telephone [facility] Office Building 2 Radiation Oncology [address] [place] [address] Kenna Pineda, ARRT 09/18/2024 11:30 AM CDT Infusion [facility] at [address] [address] Prostate cancer (HCC) (Primary Dx) 09/18/2024 10:00 AM CDT Office Visit [facility] [address] [place] [phone] Stefano Hernandez MD Metastasis to bone (HCC) (Primary Dx); Prostate cancer (HCC) 09/18/2024 9:45 AM CDT Lab [facility] [address] [place] [phone] Prostate cancer (HCC) 09/18/2024 9:30 AM CDT Lab [facility] [address] [place] [phone] Metastasis to bone (HCC); Prostate cancer (HCC) 09/18/2024 Orders Only [facility] [address] [place] [address] Stefano Hernandez MD 09/12/2024 Telephone [facility] [address] [place] [phone] Millie Kim RMA When to start Nubeqa 09/10/2024 3:31 PM SENIOR CENTER MANAGER Anesthesia Event [facility] [place] [address] [place] [address] Miguel Angel Henderson MD Jobe, Jennifer R., CRNA 09/10/2024 3:30 PM SENIOR CENTER MANAGER - 09/10/2024 5:05 PM SENIOR CENTER MANAGER Surgery [facility] [place] [address] [place] [address] Raad Ahuja MD KYPHOPLASTY - THORACIC 7 and LUMBAR 2, and Biopsy 09/09/2024 Telephone [facility] [address] [place] [phone] Azeem Bennett RMA 09/08/2024 7:53 PM SENIOR CENTER MANAGER - 09/11/2024 11:35 AM SENIOR CENTER MANAGER Hospital Encounter [facility] [address] [address] Felipa Murphy DO Winston, Jared Todd, MD Elizondo, Daniel Elias, MD Chronic midline thoracic back pain (Primary Dx); Closed fracture of seventh thoracic vertebra, unspecified fracture morphology, initial encounter (HCC); Urinary tract infection without hematuria, site unspecified; Diagnosis unknown Discharge Disposition: Discharge to home or self care 09/06/2024 9:30 AM SENIOR CENTER MANAGER Consult [facility] Medical Office Building 2 Radiation Oncology [address] [place] [address] Sidney Arias MD Malignant neoplasm of prostate (HCC) 09/05/2024 12:00 PM SENIOR CENTER MANAGER - 09/05/2024 11:59 PM SENIOR CENTER MANAGER Hospital Encounter [facility] Nuclear Medicine [address] [place] [address] Stefano Hernandez MD Discharge Disposition: Discharge to home or self care 09/05/2024 9:00 AM SENIOR CENTER MANAGER - 09/05/2024 11:59 PM SENIOR CENTER MANAGER Hospital Encounter [facility] Nuclear Medicine [address] [place] [address] Prostate cancer (HCC) Discharge Disposition: Discharge to home or self care 09/05/2024 6:54 AM SENIOR CENTER MANAGER - 09/05/2024 11:59 PM SENIOR CENTER MANAGER Hospital Encounter [facility] Imaging and Radiology [address] [place] [address] Prostate cancer (HCC) Discharge Disposition: Discharge to home or self care 09/05/2024 Telephone [facility] Medical Office Building 2 Radiation Oncology [address] [place] [address] Julianne Chapin MA 08/30/2024 Telephone [facility] [address] [place] [phone] Smita Taylor RN 08/26/2024 9:45 AM SENIOR CENTER MANAGER Lab [address] [address] Prostate cancer (HCC) 08/26/2024 8:00 AM SENIOR CENTER MANAGER Office Visit [facility] [address] [place] [phone] Stefano Hernandez MD Prostate cancer (HCC) (Primary Dx); Metastasis to bone (HCC) 08/26/2024 Orders Only [facility] [address] [place] [phone] Stefano Hernandez MD 08/22/2024 Telephone [facility] Surgery [address] [place] [address] Darling Mckeon EMT 08/20/2024 Telephone [facility] Physicians [facility] Surgery [address] [place] [address] [address] [place] [address] Trupti Ma 08/20/2024 Telephone [facility] Surgery [address] [place] [address] Leanna Miller 08/19/2024 11:20 AM SENIOR CENTER MANAGER Lab [facility] Medical Office Building [address] [place] [address] Prostate cancer (HCC) 08/19/2024 10:40 AM SENIOR CENTER MANAGER Office Visit [facility] Surgery [address] [facility] [address] [place] [phone] Pardeep Tapia MD Prostate cancer (HCC) (Primary Dx) 08/19/2024 Telephone [facility] [address] [facility] Floor 5 [place] [phone] Julianne Talley 08/09/2024 11:38 AM SENIOR CENTER MANAGER - 08/09/2024 11:59 PM SENIOR CENTER MANAGER Hospital Encounter [facility] - Imaging [address] [place] [address] Prostate mass; Elevated PSA Discharge Disposition: Discharge to home or self care 08/06/2024 Telephone [facility] [address] [facility] Floor 5 [place] [address] Julianne Talley 07/30/2024 7:33 AM SENIOR CENTER MANAGER Anesthesia Event [facility] [place] [address] [place] [address] Kareem Rees MD Taylor-White, Carlotta A., NP 07/30/2024 7:30 AM SENIOR CENTER MANAGER - 07/30/2024 9:15 AM SENIOR CENTER MANAGER Surgery [facility] [place] [address] [place] [address] Pardeep Tapia MD CYSTOSCOPY - TRANSURETHRAL RESECTION BLADDER TUMOR 07/30/2024 7:20 AM SENIOR CENTER MANAGER - 07/30/2024 11:59 PM SENIOR CENTER MANAGER Hospital Encounter [address] [address] Bladder mass Discharge Disposition: Discharge to home or self care 07/30/2024 5:33 AM SENIOR CENTER MANAGER - 07/30/2024 1:50 PM SENIOR CENTER MANAGER Hospital Encounter [facility] [place] [address] [place] [address] Pardeep Tapia MD Prostate mass (Primary Dx); Bladder tumor; Elevated PSA Discharge Disposition: Discharge to home or self care 07/26/2024 Telephone [facility] Surgery [address] [place] [address] Darling Mckeon, EMT from Last 3 Months Immunizations Immunization Administration Dates Next Due Influenza, Quadrivalent, Hig h Dose, Preservative Free, Intrr 05/31/2023,05/19/2021 Influenza, Quadrivalent, Split, Intramuscular Influenza, Trivalent, High D ose, Split, Preservative Free, Intramuscular 06/19/2019 Pneumococcal Conjugate PCV 13 06/19/2019 Pneumococcal Polysaccharide PPV23 09/15/2017 ZOSTER Recombinant 02/20/2023 Surgical History Surgery Date Site/Laterality Comments SKIN CANCER EXCISION 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 temples Wears partial dentures upper Bladder mass Family History Medical History Relation Name Comments Heart disease Father Stroke Maternal Grandfather Diabetes Mother Hypertension Mother Cancer Mother's Brother Heart disease Paternal Grandfather Cancer Sister Relation Name Status Comments Father Maternal Grandfather Mother Mother's Brother Paternal Grandfather Sister Social History Tobacco Use Types Packs/Day Years Used Date Smoking Tobacco: Former Cigarettes 2 25 S tarted: 1967 Passive Smoke Exposure: Past Smokeless Tobacco: Never Tobacco Cessation:Counseling Given: Not Answered [facility] Utilities Answer Date Recorded In the past 12 months has [employer], [employer], or water [employer] threatened to shut off services in your [...] 09/09/2024 How often do you attend chur or sabianism services? Never 09/09/2024 Do you belong to any clubs o r organizations such as cheondoism groups, unions, fraternal or athletic groups, or [...] any time in the past 12 m [facility], were you homeless or living in a care home (including now)? No 09/09/2024 Personal Safety Answer Date Recorded Have you ever been in or are you currently in a harmful physical or emotional relationship or is someone making you feel afraid or unsafe? Denies 09/09/2024 Sex and Gender Information Value Date Recorded Sex Assigned at Not on file Legal Sex Male 1:04 PM SENIOR CENTER MANAGER Gender Identity Not on file Sexual Orientation Not on file Obstetrics History Last Filed Vital Signs Vital Sign Reading [...] 10/16/2024 11:09 AM CDT Plan of Treatment Health Maintenance Due Date Last Done Comments Depression Screening 1945 Hepatitis C Screening 1945 DTaP/Tdap/Td Vaccine (1 - Tdap) 1957 Hepatitis B Screening 1964 Well Visit 65+ 09/30/2011 Zoster Vaccine (2 of 2) 04/17/2023 02/20/2023 Covid-19 Vaccine (6 - 2023-2 5 season) 2024 05/31/2023, 12/15/2021, 05/06/2021, Additional history exists Influenza Vaccine (Season Ended) 2025 05/31/2023, 05/19/2021, 06/19/2019, Additional history exists Fall Risk Assessment 09/11/2025 09/11/2024, 09/06/19 25 Pneumococcal vaccine 65+ Completed 06/19/2019, 03/2018 Medical Devices Implanted Type Area Lead Systems Analyst Device Identifier Shelf Expiration Date Model / Serial / Lot VIVA Vertaplex Hv Autoplex Without Needle Delivery System Kit Bone [id number] - [id number] Implanted:Qty: 1 on 09/10/2024 by Raad Ahuja MD at [facility] N/A: Thoracic- Lumbar Spine [employer] 10/08/2025 [id number] / / [id number] Description:Lumbar 2 and tho racic 7 Explanted Type Area Lead Systems Analyst Device Identifier Shelf Expiration Date Model / Serial / Lot [employer] Avamax Od13 Ga L10 Mm Balloon Tray Bone Cement [id number] - [id number] Explanted:Qty : 1 on 09/10/2024 by Raad Ahuja MD at [facility] N/A: Spine Lumbar [employer] [id number] 05/30/2025 [id number] / / [id number] [employer] Od13 Ga L10 Mm Balloon Tray Bone [employer]ement [id number] - [id number] Explanted:Qty : 1 on 09/10/2024 by Raad Ahuja MD at [facility] N/A: Spine Lumbar [employer] [id number] 05/30/2025 [id number] / / [id number] Procedures Procedure Name Priority Date/Time Associated Diagnosis [...] GLUCOSE DEVICE Routine 09/10/2024 5 :59 PM SENIOR CENTER MANAGER FL FLUOROSCOPY < 1 HOUR IP Routine 09/10/2024 5:45 PM SENIOR CENTER MANAGER SURGICAL PATHOLOGY Routine 09/10/2024 4: 47 PM SENIOR CENTER MANAGER Diagnosis unknown ND AN PROCEDURE PLACEHOLDER Routine 09/10/2024 4:15 PM SENIOR CENTER MANAGER ND AN ELECTIVE ENDOTRACHEAL AIRWAY Routine 09/10/2024 4:15 PM SENIOR CENTER MANAGER KYPHOPLASTY 09/10/2024 3:36 PM SENIOR CENTER MANAGER POCT GLUCOSE DEVICE Routine 09/10/2024 3 :15 PM SENIOR CENTER MANAGER MRI LUMBAR SPINE WO CONTRAST IP Routine 09/10/2024 1:49 PM SENIOR CENTER MANAGER POCT GLUCOSE DEVICE Routine 09/10/2024 1 1:40 AM SENIOR CENTER MANAGER INFLUENZA A/B, RSV, AND COVID-19 PCR STAT 09/10/2024 9:48 AM SENIOR CENTER MANAGER POCT GLUCOSE DEVICE Routine 09/09/2024 7 :56 PM SENIOR CENTER MANAGER PHOSPHORUS Routine 09/09/2024 6:46 PM SENIOR CENTER MANAGER MAGNESIUM Routine 09/09/2024 6:[address] LUMBAR SPINE WO CONTRAST IP Routine 09/09/2024 6:[address] THORACIC SPINE WO CONTRAST IP Routine 09/09/2024 6:39 PM SENIOR CENTER MANAGER POCT GLUCOSE DEVICE Routine 09/09/2024 4 :37 PM SENIOR CENTER MANAGER INFECTION PREVENTION KIARA AURIS PCR, SURVEILLANCE STAT 09/09/2024 2:36 PM SENIOR CENTER MANAGER POCT GLUCOSE DEVICE Routine 09/09/2024 1 1:52 AM SENIOR CENTER MANAGER POCT GLUCOSE DEVICE Routine 09/09/2024 7 :57 AM SENIOR CENTER MANAGER ECG 12-LEAD STAT 09/09/2024 7:26 AM SENIOR CENTER MANAGER EGFR Routine 09/09/2024 6:10 AM SENIOR CENTER MANAGER DIFFERENTIAL AUTO Routine 09/09/2024 6:1 0 AM SENIOR CENTER MANAGER BASIC METABOLIC PANEL Routine 09/09/2024 6:10 AM SENIOR CENTER MANAGER CBC WITH AUTO DIFFERENTIAL Routine 09/09/2024 6:10 AM SENIOR CENTER MANAGER TROPONIN T HIGH-SENSITIVITY 4-HR Timed 09/09/2024 12:13 AM SENIOR CENTER MANAGER TROPONIN T HIGH-SENSITIVITY 2-HOUR Timed 09/08/2024 10:10 PM SENIOR CENTER MANAGER URINALYSIS, MICROSCOPIC ONLY STAT 09/08/2024 8:31 PM SENIOR CENTER MANAGER URINE CULTURE STAT 09/08/2024 8:31 PM SENIOR CENTER MANAGER URINALYSIS AND REFLEX TO MICROSCOPIC AND CULTURE STAT 09/08/2024 8:31 PM SENIOR CENTER MANAGER EGFR STAT 09/08/2024 8:01 PM SENIOR CENTER MANAGER DIFFERENTIAL AUTO STAT 09/08/2024 8:0 1 PM SENIOR CENTER MANAGER TROPONIN T HIGH-SENSITIVITY SERIES (BASELINE, 2HR, 4HR, 6HR) STAT 09/08/2024 8:01 PM SENIOR CENTER MANAGER COMPREHENSIVE METABOLIC PANEL STAT 09/08/2024 8:01 PM SENIOR CENTER MANAGER CBC WITH AUTO DIFFERENTIAL STAT 09/08/2024 8:01 PM SENIOR CENTER MANAGER NM BONE IMAGING WHOLE BODY Schedule Routine, Read Routine (OP Routine) 09/05/2024 2:44 PM SENIOR CENTER MANAGER Prostate cancer (HCC) MRI THORACIC SPINE W WO CONTRAST Schedule Routine, Read Routine (OP Routine) 09/05/2024 9:42 AM SENIOR CENTER MANAGER Prostate cancer (HCC) EGFR Routine 08/26/2024 10:56 AM SENIOR CENTER MANAGER Prostate cancer (HCC) DIFFERENTIAL AUTO Routine 08/26/2024 10: 56 AM SENIOR CENTER MANAGER Prostate cancer (HCC) CBC WITH AUTO DIFFERENTIAL Routine 08/26/2024 10:56 AM SENIOR CENTER MANAGER Prostate cancer (HCC) COMPREHENSIVE METABOLIC PANEL Routine 08/26/2024 10:56 AM SENIOR CENTER MANAGER Prostate cancer (HCC) PSA DIAGNOSTIC Routine 08/26/2024 10:56 AM SENIOR CENTER MANAGER Prostate cancer (HCC) TOTAL TESTOSTERONE Routine 08/26/2024 10 :56 AM SENIOR CENTER MANAGER Prostate cancer (HCC) TOTAL TESTOSTERONE Routine 08/19/2024 11 :56 AM SENIOR CENTER MANAGER Prostate cancer (HCC) PET/CT PROSTATE CANCER PSMA SKULL TO THIGH Schedule Routine, Read Routine (OP Routine) 08/09/2024 1:29 PM SENIOR CENTER MANAGER Prostate mass Elevated PSA US GUIDANCE INTRAOPERATIVE Schedule Routine, Read Routine (OP Routine) 07/30/2024 8:53 AM SENIOR CENTER MANAGER Bladder mass POCT GLUCOSE DEVICE Routine 07/30/2024 8 :48 AM SENIOR CENTER MANAGER SURGICAL PATHOLOGY Routine 07/30/2024 8: 21 AM SENIOR CENTER MANAGER Bladder tumor ND AN PROCEDURE PLACEHOLDER Routine 07/30/2024 7:50 AM SENIOR CENTER MANAGER ND AN ELECTIVE ENDOTRACHEAL AIRWAY Routine 07/30/2024 7:50 AM SENIOR CENTER MANAGER TRANSANAL BIOPSY - PROSTATE 07/30/2024 7:33 AM SENIOR CENTER MANAGER Bladder tumor CYSTOSCOPY - TRANSURETHRAL RESECTION BLADDER TUMOR 07/30/2024 7:33 AM SENIOR CENTER MANAGER Bladder tumor POCT GLUCOSE DEVICE Routine 07/30/2024 6 :22 AM SENIOR CENTER MANAGER from Last 3 Months Results * eGFR [...] was last reviewed 2021. Testing performed by: [facility] [place] [address] Blood 10/16/2024 10:0 2 AM CDT 10/16/2024 10:02 AM CDT Stefano Hernandez MD LAB BLOOD ORDERABLES Final Result [facility] [address] Department [place] [address] * Differential, auto (10/16/2024 10:02 AM CDT) Neutrophil abs 4.10 1.50 - 6.50 K/cumm Comment:Testing performed by : [facility] [place] [address] Imm gran abs 0.02 0.00 - 0.10 K/cumm [facility] Comment:Testing performed by : [facility] [place] [address] Lymphocyte abs 0.90 0.80 - 3.30 K/cumm [facility] Comment:Testing performed by : [facility] [place] [address] Monocyte abs 0.21 0.20 - 0.80 K/cumm [facility] Comment:Testing performed by : [facility] [place] [address] Eosinophil abs 0.05 0.00 - 0.50 K/cumm [facility] Comment:Testing performed by : [facility] [place] [address] Basophil abs 0.03 0.00 - 0.10 K/cumm [facility] Comment:Testing performed by : [facility] [place] [address] Neutrophil pct 77.2 % [facility] Comment: Interpretive Data Percent cell count reference ranges are not reported, since discordance with absolute values may lead to misinterpretation of CBC data. Current Interpretive Data was last revised on 2017. Testing performed by: [facility] [place] [address] Imm gran pct 0.4 % [facility] Comment: Interpretive Data Percent cell count reference ranges are not reported, since discordance with absolute values may lead to misinterpretation of CBC data. Current Interpretive Data was last revised on 2017. Testing performed by: [facility] [place] [address] Lymphocyte pct 16.9 % [facility] Comment: Interpretive Data Percent cell count reference ranges are not reported, since discordance with absolute values may lead to misinterpretation of CBC data. Current Interpretive Data was last revised on 2017. Testing performed by: [facility] [place] [address] Monocyte pct 4.0 % CERNER Comment: Interpretive Data Percent cell count reference ranges are not reported, since discordance with absolute values may lead to misinterpretation of CBC data. Current Interpretive Data was last revised on 2017. Testing performed by: [facility] [place] [address] Eosinophil pct 0.9 % CERNER Comment: Interpretive Data Percent cell count reference ranges are not reported, since discordance with absolute values may lead to misinterpretation of CBC data. Current Interpretive Data was last revised on 2017. Testing performed by: [facility] [place] [address] Basophil pct 0.6 % CERNER Comment: Interpretive Data Percent cell count reference ranges are not reported, since discordance with absolute values may lead to misinterpretation of CBC data. Current Interpretive Data was last revised on 2017. Testing performed by: [facility] [place] [address] Blood 10/16/2024 10:0 2 AM CDT 10/16/2024 10:02 AM CDT us Stefano Hernandez MD LAB BLOOD ORDERABLES Final Result [facility] [address] Department [place] [address] * (ABNORMAL) CBC with auto differential (10/16/2024 10:02 AM CDT) WBC 5.31 3.80 - 9.90 K/cumm Comment:Testing performed by : [facility] [place] [address] Hgb 12.1(L) 13.0 - 17.5 g/dL [facility] Comment:Testing performed by : [facility] [place] [address] Hct 38.3(L) 38.9 - 50.3 % [facility] Comment:Testing performed by : [facility] [place] [address] Plt 300 150 - 400 K/cumm [facility] Comment:Testing performed by : [facility] [place] [address] MPV 9.1 9.1 - 12.3 fL [facility] Comment:Testing performed by : [facility] [place] [address] RBC 4.66 4.30 - 5.80 M/cumm [facility] Comment:Testing performed by : [facility] [place] [address] MCV 82.2 81.3 - 96.4 fL [facility] Comment:Testing performed by : [facility] at [place] [address] MCH 26.0(L) 27.1 - 33.3 pg CERNER CH Comment:Testing performed by : [facility] [place] [address] MCHC 31.6(L) 32.3 - 35.7 g/dL CERNER CH Comment:Testing performed by : [facility] [place] [address] RDW CV 17.4(H) 11.1 - 14.9 % CERNER CH Comment:Testing performed by : [facility] [place] [address] RDW SD 51.9(H) 35.7 - 48.1 fL CERNER CH Comment:Testing performed by : [facility] [place] [address] NRBC abs 0.00 0.00 - 0.01 K/cumm CERNER CH Comment:Testing performed by : [facility] [place] [address] ANC Prelim 4.10 1.50 - 6.50 K/cumm CERNER CH Comment: Interpretive Data The rapid ANC is a preliminary automated count and may vary from the final ANC (Neut Abs) reported in the WBC differential that follows. Current interpretive data was last revised 2024. Testing performed by: [facility] [place] [address] Blood 10/16/2024 10:0 2 AM CDT 10/16/2024 10:02 AM CDT Stefano Hernandez MD LAB BLOOD ORDERABLES Final Result Performing Organization Address [facility] de Phone Number AMNA [address] [place] [address] * PSA diagnostic (10/16/2024 10:02 AM CDT) [...] BLOOD ORDERABLES Final Result Performing Organization Address City/[facility] Co de Phone Number AMNA [address] [place] [address] * (ABNORMAL) Comprehensive metabolic panel (10/16/2024 10:02 AM CDT) Sodium 133(L) 135 - 145 mmol/L Comment:Testing performed by : [facility] [place] [address] Potassium, pl 5.2(H) 3.3 - 4.9 mmol/L AMNA Comment:Testing performed by : [facility] [place] [address] Chloride 96(L) 97 - 110 mmol/L CERNER CH Comment:Testing performed by : [facility] [place] [address] CO2 26 22 - 32 mmol/L CERNER CH Comment:Testing performed by : [facility] [place] [address] Anion gap 11 2 - 15 mmol/L CERNER CH Comment:Testing performed by : [facility] [place] [address] BUN 15 6 - 25 mg/dL CERNER CH Comment:Testing performed by : [facility] [place] [address] Creatinine 0.72(L) 0.80 - 1.30 mg/dL CERNER CH Comment:Testing performed by : [facility] [place] [address] Glucose 150 70 - 199 mg/dL CERNER CH Comment: [...] was last revised 2022. Testing performed by: [facility] [place] [address] Calcium 10.2 8.5 - 10.3 mg/dL CERNER CH Comment:Testing performed by : [facility] [place] [address] Bilirubin, total 0.3 0.1 - 1.2 mg/dL CERNER CH Comment:Testing performed by : [facility] [place] [address] Protein, pl 7.7 6.5 - 8.5 g/dL CERNER CH Comment:Testing performed by : [facility] [place] [address] Albumin 4.4 3.5 - 5.0 g/dL CERNER CH Comment:Testing performed by : [facility] [place] [address] Alk phos 100 40 - 130 Units/L CERNER CH Comment:Testing performed by : [facility] [place] [address] ALT 11 7 - 55 Units/L AMNA RODRÍGUEZ Comment:Testing performed by : [facility] at [facility], [place] [address] AST 19 10 - 50 Units/L AMNA RODRÍGUEZ Comment:Testing performed by : [facility] [place] [address] Blood 10/16/2024 10:0 2 AM CDT 10/16/2024 10:02 AM CDT us Stefano Hernandez MD LAB BLOOD ORDERABLES Final Result AMNA RODRÍGUEZ [address] Department [place] [address] * RAD ONC ARIA COURSE SUMMARY (10/11/2024 [...] Miscellaneous RADIATION ONCOLOGY ORD ERABLES Final Result ARIBalwinder * RAD ONC ARIA SESSION SUMMARY (10/09/2024 [...] Prescribed Total Dose (cGy) 2,000 ARIA 10/09/2024 1:10 PM CDT us Not In File Miscellaneous RADIATION ONCOLOGY ORD ERABLES Final Result ARIBalwinder * RAD ONC ARIA SESSION SUMMARY (10/08/2024 [...] Miscellaneous RADIATION ONCOLOGY ORD ERABLES Final Result SOCORRO * RAD ONC ARIA SESSION SUMMARY (10/07/2024 [...] was last reviewed 2021. Testing performed by: [facility] [place] [address] Blood 09/18/2024 9:47 AM CDT 09/18/2024 9:47 AM CDT us Stefano Hernandez MD LAB BLOOD ORDERABLES Final Result AMNA [address] Department [place] [address] * (ABNORMAL) Differential, auto (09/18/2024 9:47 AM CDT) Neutrophil abs 7.4(H) 1.5 - 6.5 K/cumm Comment:Testing performed by : [facility] [place] [address] Imm gran abs 0.0 0.0 - 0.1 K/cumm CERNER Comment:Testing performed by : [facility] [place] [address] Lymphocyte abs 1.0 0.8 - 3.3 K/cumm CERELDA Comment:Testing performed by : [facility] [place] [address] Monocyte abs 0.2 0.2 - 0.8 K/cumm CERELDA Comment:Testing performed by : [facility] [place] [address] Eosinophil abs 0.0 0.0 - 0.5 K/cumm CERELDA Comment:Testing performed by : [facility] [place] [address] Basophil abs 0.0 0.0 - 0.1 K/cumm CERNER Comment:Testing performed by : [facility] [place] [address] Neutrophil pct 85.9 % CERELDA Comment: Interpretive Data Percent cell count reference ranges are not reported, since discordance with absolute values may lead to misinterpretation of CBC data. Current Interpretive Data was last revised on 2017. Testing performed by: [facility] [place] [address] Imm gran pct 0.3 % CERNER Comment: Interpretive Data Percent cell count reference ranges are not reported, since discordance with absolute values may lead to misinterpretation of CBC data. Current Interpretive Data was last revised on 2017. Testing performed by: [facility] [place] [address] Lymphocyte pct 11.0 % CERNER Comment: Interpretive Data Percent cell count reference ranges are not reported, since discordance with absolute values may lead to misinterpretation of CBC data. Current Interpretive Data was last revised on 2017. Testing performed by: [facility] [place] [address] Monocyte pct 2.1 % CERNER Comment: Interpretive Data Percent cell count reference ranges are not reported, since discordance with absolute values may lead to misinterpretation of CBC data. Current Interpretive Data was last revised on 2017. Testing performed by: [facility] [place] [address] Eosinophil pct 0.2 % CERNER Comment: Interpretive Data Percent cell count reference ranges are not reported, since discordance with absolute values may lead to misinterpretation of CBC data. Current Interpretive Data was last revised on 2017. Testing performed by: [facility] [place] [address] Basophil pct 0.5 % CERNER Comment: Interpretive Data Percent cell count reference ranges are not reported, since discordance with absolute values may lead to misinterpretation of CBC data. Current Interpretive Data was last revised on 2017. Testing performed by: [facility] [place] [address] Blood 09/18/2024 9:47 AM CDT 09/18/2024 9:47 AM CDT us Stefano Hernandez MD LAB BLOOD ORDERABLES Final Result AMNA RODRÍGUEZ [address] Department [place] [address] * (ABNORMAL) CBC with auto differential (09/18/2024 9:47 AM CDT) WBC 8.6 3.8 - 9.9 K/cumm Comment:Testing performed by : [facility] [place] [address] Hgb 10.6(L) 13.0 - 17.5 g/dL CERNER CH Comment:Testing performed by : [facility] [place] [address] Hct 33.6(L) 38.9 - 50.3 % CERNER CH Comment:Testing performed by : [facility] [place] [address] Plt 412(H) 150 - 400 K/cumm CERNER CH Comment:Testing performed by : [facility] [place] [address] MPV 8.5(L) 9.1 - 12.3 fL CERNER CH Comment:Testing performed by : [facility] [place] [address] RBC 4.09(L) 4.30 - 5.80 M/cumm CERNER CH Comment:Testing performed by : [facility] [place] [address] MCV 82.2 81.3 - 96.4 fL CERNER CH Comment:Testing performed by : [facility] [place] [address] MCH 25.9(L) 27.1 - 33.3 pg CERNER CH Comment:Testing performed by : [facility] [place] [address] MCHC 31.5(L) 32.3 - 35.7 g/dL CERNER CH Comment:Testing performed by : [facility] [place] [address] RDW CV 14.7 11.1 - 14.9 % CERNER CH Comment:Testing performed by : [facility] [place] [address] RDW SD 44.3 35.7 - 48.1 fL CERNER CH Comment:Testing performed by : [facility] [place] [address] NRBC abs 0.00 0.00 - 0.01 K/cumm AMNA Comment:Testing performed by : [facility] [place] [address] Blood 09/18/2024 9:47 AM CDT 09/18/2024 9:47 AM CDT Stefano Hernandez MD LAB BLOOD ORDERABLES Final Result Performing Organization Address City/[facility] Co de Phone Number AMNA RODRÍGUEZ [address] Department [place] [address] * PSA diagnostic (09/18/2024 9:47 AM CDT) [...] BLOOD ORDERABLES Final Result Performing Organization Address City/[facility] Co de Phone Number AMNA RODRÍGUEZ [address] [place] [address] * (ABNORMAL) Comprehensive metabolic panel (09/18/2024 9:47 AM CDT) Sodium 136 135 - 145 mmol/L Comment:Testing performed by : [facility] [place] [address] Potassium, pl 5.4(H) 3.3 - 4.9 mmol/L AMNA Comment:Testing performed by : [facility] [place] [address] Chloride 100 97 - 110 mmol/L CERNER CH Comment:Testing performed by : [facility] [place] [address] CO2 26 22 - 32 mmol/L CERNER CH Comment:Testing performed by : [facility] [place] [address] Anion gap 10 2 - 15 mmol/L CERNER CH Comment:Testing performed by : [facility] [place] [address] BUN 15 6 - 25 mg/dL CERNER CH Comment:Testing performed by : [facility] [place] [address] Creatinine 0.73(L) 0.80 - 1.30 mg/dL CERNER CH Comment:Testing performed by : [facility] [place] [address] Glucose 149 70 - 199 mg/dL CERNER [...] was last revised 2022. Testing performed by: [facility] [place] [address] Calcium 10.3 8.5 - 10.3 mg/dL CERNER CH Comment:Testing performed by : [facility] [place] [address] Bilirubin, total 0.2 0.1 - 1.2 mg/dL CERNER CH Comment:Testing performed by : [facility] [place] [address] Protein, pl 8.0 6.5 - 8.5 g/dL CERNER CH Comment:Testing performed by : [facility] [place] [address] Albumin 4.3 3.5 - 5.0 g/dL CERNER CH Comment:Testing performed by : [facility] [place] [address] Alk phos 125 40 - 130 Units/L CERNER CH Comment:Testing performed by : [facility] [place] [id number] ALT 8 7 - 55 Units/L CERELDA CH Comment:Testing performed by : [facility] at [facility], [place] [id number] AST 19 10 - 50 Units/L CERELDA CH Comment:Testing performed by : [facility] [place] [address] Blood 09/18/2024 9:47 AM CDT 09/18/2024 9:47 AM CDT us Stefano Hernandez MD LAB BLOOD ORDERABLES Final Result Performing Organization Address City/[facility]/ZIP Co de Phone Number AMNA [address] Department [place] [address] * POCT glucose (09/10/2024 5:59 PM SENIOR CENTER MANAGER) Glucose, POC 133 70 - 199 mg/dL Blood 09/10/2024 5:59 PM SENIOR CENTER MANAGER 09/10/2024 5:59 PM SENIOR CENTER MANAGER Sukhdeep Eugene MD LAB POCT ORDERABLES - D EVICE Final Result Performing Organization Address [facility] Co de Phone Number AMNA [address] [facility] Department [place] [address] * FL Fluoroscopy < 1 Hour (09/10/2024 5:45 PM SENIOR CENTER MANAGER) Narrative [email or web address] - 09/10/2024 6:13 PM SENIOR CENTER MANAGER The images from this study are not interpreted by Radiology. Please refer to the physician's procedure / OR operative note. us Raad Ahuja MD IMG FLUOROSCOPY PROCEDURES Final Result Performing Organization Address [facility]/ZIP Co de Phone Number [email or web address] * Surgical pathology (09/10/2024 4:47 PM SENIOR CENTER MANAGER) Tissue specimen (specimen) (Bone - Biopsy / Curettings) 09/10/2024 4:47 PM SENIOR CENTER MANAGER Tissue specimen (specimen) (Bone marrow) 09/10/2024 4:33 AM SENIOR CENTER MANAGER Comment:Thoracic 7 bone aiwlda ow aspirate Tissue specimen (specimen) (Bone marrow) 09/10/2024 4:43 PM SENIOR CENTER MANAGER Comment:Lumbar 2 bone marrow aspirate Narrative PATHOLOGY [facility] - 09/17/2024 4:03 PM CDT [facility] Department of Pathology [address] [place] [address] Note to Patients: This report may contain [...] : 1945 (Age: 78) Gender: M Address: [address] [place] [address] Hospital #: [id number] Service: Medical Location: Patient Type: [facility] Taken: 09/10/2024 Received: 09/11/2024 Accessioned: 09/11/2024 [...] and entirely submitted. Labeled C1. Jar 0. jjb/09/11/2024 09:17 SHARDA [place], [facility] Microscopic slide review and interpretation for this case was performed at [facility], Department of Surgical Pathology, [address] [facility] [place] [place] [id number] [address] CLIA # [id number] The Cytokeratin test was performed at [facility] Department of Surgical Pathology, [address] [place] [address]. The NKX3.1 test was performed at [facility], Department of Surgical Pathology, [address] [place] [address]. Raad Ahuja MD LAB PATHOLOGY ORDERABLES Final R esult PATHOLOGY [facility] * ND AN ELECTIVE ENDOTRACHEAL AIRWAY, ND AN PROCEDURE PLACEHOLDER (09/10/2024 4:15 PM SENIOR CENTER MANAGER) Narrative Felisha Anne CRNA - 09/10/2024 4:15 PM SENIOR CENTER MANAGER Felisha Anne CRNA 09/10/2024 4:16 PM Airway Patient location: OR Urgency: elective Date/time: 09/10/2024 3:44 PM Indications for airway management: anesthesia Difficult airway: no Staff: Supervising provider: Miguel Angel Henderson MD Placed by: CUT PLUG PACKER: Felisha Anne CRNA Emergent airway documentation: Risks [...] Result * POCT glucose (09/10/2024 3:15 PM SENIOR CENTER MANAGER) Glucose, POC 102 70 - 199 mg/dL Glucose comment 1 Use This Result AMNA Blood 09/10/2024 3:15 PM SENIOR CENTER MANAGER 09/10/2024 3:15 PM SENIOR CENTER MANAGER Sukhdeep Eugene MD LAB POCT ORDERABLES - D EVICE Final Result [facility]NA [address] [facility] Department [place] [address] * MRI Lumbar Spine WO Contrast (09/10/2024 1:49 PM SENIOR CENTER MANAGER) Anatomical Region Laterality Modality Spine N/A Magnetic Resonan ce 09/10/2024 2:01 PM SENIOR CENTER MANAGER Narrative 09/10/2024 2:16 PM SENIOR CENTER MANAGER EXAM DESCRIPTION: MRI LUMBAR SPINE WO CONTRAST [...] examination. DISC HEIGHT: Multilevel degenerative disc disease, eghv-hi-obliqapd at multiple levels. HARDWARE: None in the spine. CORD/CAUDA: Normal in size and signal intensity. Conus at the L1 level. LOWER THORACIC: Incompletely imaged. No stenosis seen. INDIVIDUAL DISC LEVELS: T12-L1: Minimal disc bulge. Mild facet arthropathy. No neural foraminal or spinal canal stenosis L1-2: Mild disc bulge. Wisc-lh-usubeiuc facet arthropathy. Mild left and mild right neural foraminal stenosis. No significant spinal canal stenosis L2-3: Disc bulge. Moderate bilateral facet arthropathy. Small right facet joint effusion. Mild left and mild right neural foraminal stenosis. No significant spinal canal stenosis L3-4: Diffuse disc bulge. Brgt-vu-hlvxfcrh facet arthropathy. Mild ligamentum flavum thickening and prominence of the dorsal epidural fat. Moderate left and mldh-mc-qrgvvtvt right neural foraminal stenosis. Overall mild spinal canal stenosis with mild narrowing of the lateral recesses. L4-5: Disc bulge. Moderate bilateral facet arthropathy with facet joint effusions. Moderate right and severe left neural foraminal stenosis. Ukbk-ck-xfqvxhkt spinal canal stenosis.. L5-S1: Disc bulge and [...] Prince Montesinos M.D. MZ T: Report ID: [id number] Reading Location: [place] [address] Procedure Note Prince Montesinos MD - 09/10/2024 [...] L2, L2 on L3 and L3 on Q8ydclpdkkehyxtw. Grade 1 L5 on S1 anterolisthesis. VERTEBRAE: [...] examination. DISC HEIGHT: Multilevel degenerative disc disease, yuvk-kj-sguqqmsa at multiple levels. HARDWARE: None in the spine. CORD/CAUDA: Normal in size and signal intensity. Conus at the L1 level. LOWER THORACIC: Incompletely imaged. No stenosis seen. INDIVIDUAL DISC LEVELS: T12-L1: Minimal disc bulge. Mild facet arthropathy. No neural foraminalor spinal canal stenosis L1-2: Mild disc bulge. Ihtr-uu-upgswimb facet arthropathy. Mild leftand mild right neural foraminal stenosis. No significant spinal canalstenosis L2-3: Disc bulge. Moderate bilateral facet arthropathy. Small rightfacet joint effusion. Mild left and mild right neural foraminal stenosis. No significant spinal canal stenosis L3-4: Diffuse disc bulge. Mdek-ud-dzhhrkvd facet arthropathy. Mild ligamentum flavum thickening and prominence of the dorsal epidural fat. Moderate left and ojmb-ak-vemvrtrz right neural foraminal stenosis.Overall mild spinal canal stenosis with mild narrowing of the lateral recesses. L4-5: Disc bulge. Moderate bilateral facet arthropathy with facet joint effusions. Moderate right and severe left neural foraminal stenosis. Ipto-fq-lrhvaqwv spinal canal stenosis.. L5-S1: Disc bulge and [...] Prince Montesinos M.D. MZ T: Report ID: [id number] Reading Location: [id number] Raad Ahuja MD IMG MRI PROCEDURES Final Result * POCT glucose (09/10/2024 11:40 AM SENIOR CENTER MANAGER) Glucose, POC 78 70 - 199 mg/dL Blood 09/10/2024 11:4 0 AM SENIOR CENTER MANAGER 09/10/2024 11:40 AM SENIOR CENTER MANAGER us Sukhdeep Eugene MD LAB POCT ORDERABLES - D EVICE Final Result Performing Organization Address [facility] Co de Phone Number [place] [phone] [place] [address] * Influenza A/B, RSV, and COVID-19 PCR Nasopharyngeal (09/10/2024 9:48 AM SENIOR CENTER MANAGER) Pathologist [facility] COVID-19 RNA Negative Negative Influenza A RNA Negative Negative [facility] Influenza B RNA Negative Negative [facility] RSV RNA Negative Negative [facility] Comment: Interpretive data: Testing performed by [facility]. This test is performed using the [employer] Xpert Xpress CoV-2/Flu/RSV plus assay. This is a multiplex, real-time reverse transcriptase PCR assay intended for the qualitative detection of nucleic acid from SARS-CoV-2, influenza A, influenza B, and respiratory syncytial virus. This assay has been cleared by the [place] Food and Drug administration. The performance characteristics have been verified by the [facility]. Results must be considered in the clinical context, and a negative result does not rule out infection. Interpretive Data last revised 2023 Nasopharyngeal 09/10/2024 9: 48 AM SENIOR CENTER MANAGER 09/10/2024 9:52 AM SENIOR CENTER MANAGER Narrative [facility] - 09/10/2024 10:35 AM SENIOR CENTER MANAGER Is the Patient experiencing symptoms consistent with COVID?->Unknown Sukhdeep Eugene MD LAB MICROBIOLOGY - GENE RAL ORDERABLES Final Result Performing Organization Address [facility] Co de Phone Number [facility] [address] [place] [address] * POCT glucose (09/09/2024 7:56 PM SENIOR CENTER MANAGER) Pathologist [facility] Glucose, POC 179 70 - 199 mg/dL Glucose comment 1 Use This Result [facility] Blood 09/09/2024 7:56 PM SENIOR CENTER MANAGER 09/09/2024 7:56 PM SENIOR CENTER MANAGER Sukhdeep Eugene MD LAB POCT ORDERABLES - D EVICE Final Result Performing Organization Address [facility] Co de Phone Number AMNA [address] [address] * Phosphorus (09/09/2024 6:46 PM SENIOR CENTER MANAGER) Pathologist [facility] Phosphorus, pl 3.1 2.3 - 4.5 mg/dL Blood 09/09/2024 6:46 PM SENIOR CENTER MANAGER 09/09/2024 7:00 PM SENIOR CENTER MANAGER [facility] LAB BLOOD ORDERABLES Fin al Result Performing Organization Address [facility] de Phone Number AMNA [address] [address] * Magnesium (09/09/2024 6:46 PM SENIOR CENTER MANAGER) [facility] Magnesium 1.7 1.4 - 2.5 mg/dL Blood 09/09/2024 6:46 PM SENIOR CENTER MANAGER 09/09/2024 7:00 PM SENIOR CENTER MANAGER [facility] LOAN ASSISTANT LAB BLOOD ORDERABLES Fin al Result Performing Organization Address [facility] de Phone Number AMNA [address] [address] * CT Lumbar Spine WO Contrast (09/09/2024 6:43 PM SENIOR CENTER MANAGER) Anatomical Region Laterality Modality Spine N/A Computed Tomogra phy 09/09/2024 9:29 PM SENIOR CENTER MANAGER Addenda Addendum by Donte Jara DO on 09/10/2024 8:38 AM SENIOR CENTER MANAGER ADDENDUM: This addendum report supersedes the original [...] signed by Donte KIDD T: Report ID: [id number] Reading Location: [id number] [facility] 09/09/2024 9:39 PM SENIOR CENTER MANAGER EXAM DESCRIPTION: CT THORACIC SPINE WO CONTRAST; [...] lumbar spine. Multilevel facet arthropathy. DISC HEIGHT: Qwfx-gz-oxzksafe disc space narrowing seen scattered throughout the [...] better seen on the recent MRI. 3. Shmt-wg-tyoqkryf multilevel thoracic and lumbar spondylosis. THIS IS AN ELECTRONICALLY VERIFIED FINAL REPORT 09/09/2024 9:39 PM - Electronically signed by Martha PURI T: Report ID: [id number] Reading Location: [id number] Procedure Note Martha Lamar DO / Donte Jara DO - 09/09/2024 EXAM [...] lumbar spine. Multilevel facet arthropathy. DISC HEIGHT: Ztth-bc-hykodpqs disc space narrowing seen scatteredthroughout the thoracic [...] better seen on the recent MRI. 3. Bdfu-ht-pagtyuzo multilevel thoracic and lumbar spondylosis. THIS IS AN ELECTRONICALLY VERIFIED FINAL REPORT 09/09/2024 9:39 PM - Electronically signed by Martha Lamar M.D. T: Report ID: [id number] Reading Location: [id number] Raad Ahuja MD IMG CT PROCEDURES Edited Result - Final * CT Thoracic Spine WO Contrast (09/09/2024 6:39 PM SENIOR CENTER MANAGER) Anatomical Region Laterality Modality Spine N/A Computed Tomogra phy 09/09/2024 9:29 PM SENIOR CENTER MANAGER Addenda Addendum by Donte Jara DO on 09/10/2024 8:38 AM SENIOR CENTER MANAGER ADDENDUM: This addendum report supersedes the original [...] signed by Donte KIDD T: Report ID: [id number] Reading Location: [id number] [facility] 09/09/2024 9:39 PM SENIOR CENTER MANAGER EXAM DESCRIPTION: CT THORACIC SPINE WO CONTRAST; [...] lumbar spine. Multilevel facet arthropathy. DISC HEIGHT: Wfxl-fh-nabjshgw disc space narrowing seen scattered throughout the [...] better seen on the recent MRI. 3. Adnl-jx-ijdlupyj multilevel thoracic and lumbar spondylosis. THIS IS AN ELECTRONICALLY VERIFIED FINAL REPORT 09/09/2024 9:39 PM - Electronically signed by Martha Lamar M.D. T: Report ID: [id number] Reading Location: [id number] Procedure Note Martha Lamar DO / Donte Jara DO - 09/09/2024 EXAM [...] lumbar spine. Multilevel facet arthropathy. DISC HEIGHT: Myek-od-xnnzbihn disc space narrowing seen scatteredthroughout the thoracic [...] better seen on the recent MRI. 3. Egmk-zy-ewjryuhm multilevel thoracic and lumbar spondylosis. THIS IS AN ELECTRONICALLY VERIFIED FINAL REPORT 09/09/2024 9:39 PM - Electronically signed by Martha Lamar M.D. T: Report ID: [id number] Reading Location: [place] [address] us Raad Ahuja MD IMG CT PROCEDURES Edited Result - Final * POCT glucose (09/09/2024 4:37 PM SENIOR CENTER MANAGER) Glucose, POC 138 70 - 199 mg/dL Blood 09/09/2024 4:37 PM SENIOR CENTER MANAGER 09/09/2024 4:37 PM SENIOR CENTER MANAGER Sukhdeep Eugene MD LAB POCT ORDERABLES - D EVICE Final Result Performing Organization Address City/[facility]/ZIP Co de Phone Number [address] [place] [address] * Infection Prevention Kiara auris PCR, surveillance Axilla/Groin (09/09/2024 2:36 PM SENIOR CENTER MANAGER) Kiara auris DNA Not Detected Not Detected [facility] Comment: Interpretive Data Testing performed by [facility] Molecular Infectious Disease Laboratory using the Luz juli [id number] Kiara auris assay. This assay detects DNA from Kiara auris using Real-Time PCR. This assay is laboratory developed and is not cleared by the [facility] Food and Drug Administration. The performance characteristics have been verified by the [facility] Infectious Disease Laboratory. Testing performed by: [facility], [address] [facility] [place]., [address] Axilla/Groin 09/09/2024 2:36 PM SENIOR CENTER MANAGER 09/09/2024 5:34 PM SENIOR CENTER MANAGER Lex Akhtar MD LAB MICROBIOLOGY - GENERAL O RDERABLES Final Result Performing Organization Address City/[facility]/ZIP Co de Phone Number [address] [address] [facility] * POCT glucose (09/09/2024 11:52 AM SENIOR CENTER MANAGER) Glucose, POC 110 70 - 199 mg/dL Blood 09/09/2024 11:5 2 AM SENIOR CENTER MANAGER 09/09/2024 11:52 AM SENIOR CENTER MANAGER Sukhdeep Eugene MD LAB POCT ORDERABLES - D EVICE Final Result Performing Organization Address City/[facility] Co de Phone Number [address] [place] [address] * POCT glucose (09/09/2024 7:57 AM SENIOR CENTER MANAGER) Pathologist [facility] Glucose, POC 122 70 - 199 mg/dL Blood 09/09/2024 7:57 AM SENIOR CENTER MANAGER 09/09/2024 7:57 AM SENIOR CENTER MANAGER Sukhdeep Eugene MD LAB POCT ORDERABLES - D EVICE Final Result Performing Organization Address [facility] Phone Number [address] [place] [address] * ECG 12 lead (09/09/2024 7:26 AM SENIOR CENTER MANAGER) [facility] Ventricular Rate EKG/Min 83 BPM [facility] Atrial Rate 83 BPM [facility] ND-Interval (MSEC) 138 ms [facility] QRS-Interval (MSEC) 86 ms [facility] QT-Interval (MSEC) 356 ms [facility] QTc 418 ms [facility] P [place] 62 degrees [facility] R [place] 68 degrees [facility] T [place] 56 degrees [facility] Diagnosis Normal sinus rhythm Low voltage QRS When compared with ECG of 16-JUL-2024 13:06, Premature atrial complexes are no longer Present Confirmed by SULTAN LOWRY M.D. ([id number]) on 09/09/2024 2:26:34 PM [facility] 09/09/2024 7:26 AM SENIOR CENTER MANAGER 09/09/2024 2:26 PM SENIOR CENTER MANAGER Tyrone Campbell NP ECG ORDERABLES Final Result Performing Organization Address [facility] Co de Phone Number [facility] * eGFR (09/09/2024 6:10 AM SENIOR CENTER MANAGER) [facility] eGFR >90 >=60 mL/min/1. 73 m2 Comment: [...] last reviewed 2021. Blood 09/09/2024 6:10 AM SENIOR CENTER MANAGER 09/09/2024 6:52 AM SENIOR CENTER MANAGER us Jens Juan De La Paz LOAN ASSISTANT LAB BLOOD ORDERABLES Fin al Result [place] [id number] [facility] Department [place] [address] * (ABNORMAL) Differential, auto (09/09/2024 6:10 AM SENIOR CENTER MANAGER) Pathologist [facility] Neutrophil abs 4.2 1.5 - 6.5 K/cumm Imm gran abs 0.0 0.0 - 0.1 K/cumm [facility] Lymphocyte abs 2.6 0.8 - 3.3 K/cumm [facility] Monocyte abs 1.4(H) 0.2 - 0.8 K/cumm [facility] Eosinophil abs 0.5 0.0 - 0.5 K/cumm [facility] Basophil abs 0.1 0.0 - 0.1 K/cumm [facility] Neutrophil pct 48.4 % [facility] Comment: Interpretive Data Percent cell count reference ranges are not reported, since discordance with absolute values may lead to misinterpretation of CBC data. Current Interpretive Data was last revised on 2017. Imm gran pct 0.2 % [facility] Comment: Interpretive Data Percent cell count reference ranges are not reported, since discordance with absolute values may lead to misinterpretation of CBC data. Current Interpretive Data was last revised on 2017. Lymphocyte pct 29.8 % [facility] Comment: Interpretive Data Percent cell count reference ranges are not reported, since discordance with absolute values may lead to misinterpretation of CBC data. Current Interpretive Data was last revised on 2017. Monocyte pct 15.5 % [facility] Comment: Interpretive Data Percent cell count reference ranges are not reported, since discordance with absolute values may lead to misinterpretation of CBC data. Current Interpretive Data was last revised on 2017. Eosinophil pct 5.1 % [facility] Comment: Interpretive Data Percent cell count reference ranges are not reported, since discordance with absolute values may lead to misinterpretation of CBC data. Current Interpretive Data was last revised on 2017. Basophil pct 1.0 % [facility] Comment: Interpretive Data Percent cell count reference ranges are not reported, since discordance with absolute values may lead to misinterpretation of CBC data. Current Interpretive Data was last revised on 2017. Blood 09/09/2024 6:10 AM SENIOR CENTER MANAGER 09/09/2024 6:52 AM SENIOR CENTER MANAGER us Jens Juan De La Paz LOAN ASSISTANT LAB BLOOD ORDERABLES Fin al Result [facility] [address] [facility] Department [place] [address] * (ABNORMAL) CBC with auto differential (09/09/2024 6:10 AM SENIOR CENTER MANAGER) WBC 8.8 3.8 - 9.9 K/cumm Hgb 9.9(L) 13.0 - 17.5 g/dL [facility] Hct 32.2(L) 38.9 - 50.3 % [facility] Plt 466(H) 150 - 400 K/cumm [facility] MPV 8.8(L) 9.1 - 12.3 fL [facility] RBC 3.86(L) 4.30 - 5.80 M/cumm [facility] MCV 83.4 81.3 - 96.4 fL [facility] MCH 25.6(L) 27.1 - 33.3 pg [facility] MCHC 30.7(L) 32.3 - 35.7 g/dL [facility] RDW CV 14.5 11.1 - 14.9 % [facility] RDW SD 44.1 35.7 - 48.1 fL [facility] NRBC abs 0.00 0.00 - 0.01 K/cumm [facility] Blood 09/09/2024 6:10 AM SENIOR CENTER MANAGER 09/09/2024 6:52 AM SENIOR CENTER MANAGER us Jens Juan De La Paz NP LAB BLOOD ORDERABLES Fin al Result [facility] [address] [facility] Department [place] [address] * Basic metabolic panel (09/09/2024 6:10 AM SENIOR CENTER MANAGER) Pathologist [facility] Sodium 139 135 - 145 mmol/L Potassium, pl 4.4 3.3 - 4.9 mmol/L [facility] Chloride 102 97 - 110 mmol/L [facility] CO2 29 22 - 32 mmol/L [facility] Anion gap 8 2 - 15 mmol/L [facility] BUN 16 6 - 25 mg/dL [facility] Creatinine 0.81 0.80 - 1.30 mg/dL [facility] Glucose 105 70 - 199 mg/dL [facility] Comment: Interpretive Data Fasting glucose >/= 126 [...] 2022. Calcium 9.8 8.5 - 10.3 mg/dL [facility] Blood 09/09/2024 6:10 AM SENIOR CENTER MANAGER 09/09/2024 6:52 AM SENIOR CENTER MANAGER Jens De La Paz LOAN ASSISTANT LAB BLOOD ORDERABLES Fin al Result Performing Organization Address [facility] Co de Phone Number [address] [address] * Troponin T high-sensitivity 4-hour (09/09/2024 12:13 AM SENIOR CENTER MANAGER) Trop T hs 12 <=22 ng/L Comment: Interpretive Data For further hscTnT resources including the diagnostic algorithm and an aid in interpretation, copy and paste this link: https://nrl.[employer].org/show/hsTrop Current Interpretive Data last revised 2020. Trop T hs delta -3 ng/L [facility] Trop T hs interp Insignificant [facility] Blood 09/09/2024 12:1 3 AM SENIOR CENTER MANAGER 09/09/2024 12:14 AM SENIOR CENTER MANAGER Tyrone Campbell LOAN ASSISTANT LAB BLOOD ORDERABLES Final Resul t Performing Organization Address [facility] Co de Phone Number [address] [address] * Troponin T high-sensitivity 2-hour (09/08/2024 10:10 PM SENIOR CENTER MANAGER) Trop T hs 10 <=22 ng/L Comment: Interpretive Data For further hscTnT resources including the diagnostic algorithm and an aid in interpretation, copy and paste this link: https://nrl.[employer].org/show/hsTrop Current Interpretive Data last revised 2020. Trop T hs delta -5 ng/L [facility] Trop T hs interp Equivocal [facility] Blood 09/08/2024 10:1 0 PM SENIOR CENTER MANAGER 09/08/2024 10:13 PM SENIOR CENTER MANAGER Tyrone Campbell LOAN ASSISTANT LAB BLOOD ORDERABLES Final Resul t Performing Organization Address City/[facility]/ZIP Co de Phone Number [facility] [address] [facility] [place] [address] * (ABNORMAL) Urinalysis reflex to microscopic and culture Urine (09/08/2024 8:31 PM SENIOR CENTER MANAGER) Color, ur Straw Yellow Clarity, ur Clear Clear [facility] Specific gravity, ur 1.007 1.003 - 1.030 [facility] pH, urine 7.0 [facility] Comment: Interpretive Data U rine pH is affected by diet, medications, systemic acid-base disturbances, and renal tubular function. pH may affect urinary stone formation. For example, urine pH below 6.0 may help reduce the tendency for calcium phosphate stones and pH greater than 6.0 may reduce the tendency for uric acid stone formation. Source: [facility] Current Interpretive Data was last revised on 2017 Protein, ur ql Negative Negative [facility] Glucose, ur ql Negative Negative [facility] Ketones, ur Negative Negative [facility] Bilirubin, ur Negative Negative [facility] Blood, ur Negative Negative [facility] Urobilinogen, ur <2.0 <2.0 mg/dL [facility] Nitrite, ur Negative Negative [facility] Leukocyte esterase, ur 1+(A) Negative [facility] UA reflex comment Reflex to microscopic UA will be performed. [facility] Urine 09/08/2024 8:31 PM SENIOR CENTER MANAGER 09/08/2024 8:34 PM SENIOR CENTER MANAGER Felipa Murphy DO LAB MICROBIOLOGY - GENERAL [facility] Final Result Performing Organization Address City/State/[facility] Co de Phone Number [facility] [address] [facility] Department [place] [address] * (ABNORMAL) Urinalysis, microscopic only (09/08/2024 8:31 PM SENIOR CENTER MANAGER) WBC, ur 11-20(A) 0 - 5 /HPF RBC, ur 0-2 0 - 2 /HPF [facility] Culture Reflex Comment Reflex to urine culture will be performed. [facility] Urine 09/08/2024 8:31 PM SENIOR CENTER MANAGER 09/08/2024 8:34 PM SENIOR CENTER MANAGER Felipa Murphy DO LAB URINE ORDERABLES Final Resu lt Performing Organization Address [facility] Co de Phone Number [facility] [address] [place] [address] * (ABNORMAL) Urine culture Urine (09/08/2024 8:31 PM SENIOR CENTER MANAGER) Report Final Report: Greater than or equal to 100,000 colonies/mL of Pseudomonas aeruginosa Plus growth of clinically insignificant bacterial damian. (.) Comment:Testing performed by : [facility], [address] [facility] [place]., [address] Organism PSEUDOMONAS AERUGINOSA [facility] Organism PLUS GROWTH OF CLINICALLY INSIGNIFICANT DAMIAN. [facility] Urine 09/08/2024 8:31 PM SENIOR CENTER MANAGER 09/09/2024 2:13 AM SENIOR CENTER MANAGER Narrative [facility] - 09/11/2024 10:10 AM SENIOR CENTER MANAGER Urine culture reflexed based upon urinalysis results. Testing performed by [facility] Microbiology Laboratory ([phone]) Organism Antibiotic Method Susceptibility Pseudomonas aeruginosa Aztreonam [...] ORDE RABLES Final Result Performing Organization Address [facility] Co de Phone Number [facility] [address] [place] [address] * Troponin T high-sensitivity series (baseline, 2hr, 4hr, 6hr) (09/08/2024 8:01 PM SENIOR CENTER MANAGER) Trop T hs 15 <=22 ng/L Comment: Interpretive Data For further hscTnT resources including the diagnostic algorithm and an aid in interpretation, copy and paste this link: https://nrl.[employer].org/show/hsTrop Current Interpretive Data last revised 2020. Blood 09/08/2024 8:01 PM SENIOR CENTER MANAGER 09/08/2024 8:42 PM SENIOR CENTER MANAGER Tyrone Campbell NP LAB BLOOD ORDERABLES Final Resul t Performing Organization Address [facility] de Phone Number [facility] [address] [place] [address] * eGFR (09/08/2024 8:01 PM SENIOR CENTER MANAGER) eGFR 88 >=60 mL/min/1. 73 m2 Comment: [...] last reviewed 2021. Blood 09/08/2024 8:01 PM SENIOR CENTER MANAGER 09/08/2024 8:42 PM SENIOR CENTER MANAGER Tyrone Campbell NP LAB BLOOD ORDERABLES Final Resul t Performing Organization Address City/[facility] Co de Phone Number [facility] [address] Department [place] [address] * (ABNORMAL) Differential, auto (09/08/2024 8:01 PM SENIOR CENTER MANAGER) Pathologist [facility] Neutrophil abs 4.6 1.5 - 6.5 K/cumm Imm gran abs 0.0 0.0 - 0.1 K/cumm [facility] Lymphocyte abs 2.4 0.8 - 3.3 K/cumm [facility] Monocyte abs 1.2(H) 0.2 - 0.8 K/cumm [facility] Eosinophil abs 0.4 0.0 - 0.5 K/cumm [facility] Basophil abs 0.1 0.0 - 0.1 K/cumm [facility] Neutrophil pct 52.9 % [facility] Comment: Interpretive Data Percent cell count reference ranges are not reported, since discordance with absolute values may lead to misinterpretation of CBC data. Current Interpretive Data was last revised on 2017. Imm gran pct 0.2 % [facility] Comment: Interpretive Data Percent cell count reference ranges are not reported, since discordance with absolute values may lead to misinterpretation of CBC data. Current Interpretive Data was last revised on 2017. Lymphocyte pct 27.3 % [facility] Comment: Interpretive Data Percent cell count reference ranges are not reported, since discordance with absolute values may lead to misinterpretation of CBC data. Current Interpretive Data was last revised on 2017. Monocyte pct 14.0 % [facility] Comment: Interpretive Data Percent cell count reference ranges are not reported, since discordance with absolute values may lead to misinterpretation of CBC data. Current Interpretive Data was last revised on 2017. Eosinophil pct 4.6 % [facility] Comment: Interpretive Data Percent cell count reference ranges are not reported, since discordance with absolute values may lead to misinterpretation of CBC data. Current Interpretive Data was last revised on 2017. Basophil pct 1.0 % [facility] Comment: Interpretive Data Percent cell count reference ranges are not reported, since discordance with absolute values may lead to misinterpretation of CBC data. Current Interpretive Data was last revised on 2017. Blood 09/08/2024 8:01 PM SENIOR CENTER MANAGER 09/08/2024 8:15 PM SENIOR CENTER MANAGER us Tyrone Campbell NP LAB BLOOD ORDERABLES Final Resul t [facility] [address] [facility] Department [place] [address] * (ABNORMAL) CBC with auto differential (09/08/2024 8:01 PM SENIOR CENTER MANAGER) [facility] WBC 8.7 3.8 - 9.9 K/cumm Hgb 10.9(L) 13.0 - 17.5 g/dL [facility] Hct 34.5(L) 38.9 - 50.3 % [facility] Plt 505(H) 150 - 400 K/cumm [facility] MPV 8.4(L) 9.1 - 12.3 fL [facility] RBC 4.15(L) 4.30 - 5.80 M/cumm [facility] MCV 83.1 81.3 - 96.4 fL [facility] MCH 26.3(L) 27.1 - 33.3 pg [facility] MCHC 31.6(L) 32.3 - 35.7 g/dL [facility] RDW CV 14.6 11.1 - 14.9 % [facility] RDW SD 44.0 35.7 - 48.1 fL [facility] NRBC abs 0.00 0.00 - 0.01 K/cumm [facility] Blood 09/08/2024 8:01 PM SENIOR CENTER MANAGER 09/08/2024 8:15 PM SENIOR CENTER MANAGER us Tyrone Campbell NP LAB BLOOD ORDERABLES Final Resul t [place] [id number] [facility] Department [place] [address] * (ABNORMAL) Comprehensive metabolic panel (09/08/2024 8:01 PM SENIOR CENTER MANAGER) [facility] Sodium 134(L) 135 - 145 mmol/L Potassium, pl 4.8 3.3 - 4.9 mmol/L [facility] Chloride 97 97 - 110 mmol/L [facility] CO2 25 22 - 32 mmol/L [facility] Anion gap 12 2 - 15 mmol/L [facility] BUN 17 6 - 25 mg/dL [facility] Creatinine 0.90 0.80 - 1.30 mg/dL [facility] Glucose 149 70 - 199 mg/dL [facility] Comment: Interpretive Data Fasting glucose >/= 126 [...] 2022. Calcium 10.4(H) 8.5 - 10.3 mg/dL [facility] Bilirubin, total 0.2 0.1 - 1.2 mg/dL [facility] Protein, pl 8.1 6.5 - 8.5 g/dL [facility] Albumin 4.4 3.5 - 5.0 g/dL [facility] Alk phos 125 40 - 130 Units/L [facility] ALT 5(L) 7 - 55 Units/L [facility] AST 18 10 - 50 Units/L [facility] Blood 09/08/2024 8:01 PM SENIOR CENTER MANAGER 09/08/2024 8:42 PM SENIOR CENTER MANAGER us Tyrone Campbell NP LAB BLOOD ORDERABLES Final Resul t [facility] [address] [facility] Department [place] [address] * NM Bone Imaging Whole Body (09/05/2024 2:44 PM SENIOR CENTER MANAGER) Anatomical Region Laterality Modality N/A Nuclear Medicine 09/05/2024 4:45 PM SENIOR CENTER MANAGER Impressions 09/05/2024 4:45 PM SENIOR CENTER MANAGER MULTIPLE METASTATIC FOCI ARE SEEN IN THE RIBS AND SPINE NOTED ABOVE. Electronically signed by: Jose Narvaez M.D. Narrative 09/05/2024 4:45 PM SENIOR CENTER MANAGER EXAMINATION: NM BONE IMAGING WHOLE BODY HISTORY: [...] Jose Narvaez M.D. us Stefano Hernandez MD IM NM PROCEDURES Final Res ult * MRI Thoracic Spine W WO Contrast (09/05/2024 9:42 AM SENIOR CENTER MANAGER) Anatomical Region Laterality Modality Spine N/A Magnetic Resonan ce 09/06/2024 8:51 AM SENIOR CENTER MANAGER Impressions 09/06/2024 8:51 AM SENIOR CENTER MANAGER Diffuse thoracic vertebral osseous metastases with moderate T7 pathologic compression fracture, retropulsion, minimal ventral epidural tumor and mild canal stenosis. Mid-lower thoracic predominant disc degeneration facet arthropathy as above. Electronically signed by: Toyin Jane M.D. Narrative 09/06/2024 8:51 AM SENIOR CENTER MANAGER Examination: MRI of thoracic spine without and [...] thoracic disc degeneration and facet arthropathy, at M4-M8-O23-L1, worse T9-T10 where there is marked facet [...] thoracic disc degeneration and facet arthropathy, at K4-V8-C95-L1, worse T9-T10 where there is marked facet arthropathy encroaching on the thecal sac. The thoracic cord is normal in signal and size without abnormal enhancement. IMPRESSION: Diffuse thoracic vertebral osseous metastases with moderate T7 pathologic compression fracture, retropulsion, minimal ventral epidural tumor and mild canal stenosis. Mid-lower thoracic predominant disc degeneration facet arthropathy as above. Electronically signed by: Toyin Jane M.D. Stefano Hernandez MD [facility] MRI PROCEDURES Final Re sult * eGFR (08/26/2024 10:56 AM SENIOR CENTER MANAGER) eGFR >90 >=60 mL/min/1. 73 m2 Comment: [...] reviewed 2021. Blood 08/26/2024 10:5 6 AM SENIOR CENTER MANAGER 08/26/2024 10:56 AM SENIOR CENTER MANAGER us Stefano Hernandez MD LAB BLOOD ORDERABLES Final Result [facility] [address] [facility] Department [place] [address] * (ABNORMAL) Differential, auto (08/26/2024 10:56 AM SENIOR CENTER MANAGER) Neutrophil abs 6.6(H) 1.5 - 6.5 K/cumm Comment:Testing performed by : [facility], [address] [place] [id number] Imm gran abs 0.0 0.0 - 0.1 K/cumm [facility] Lymphocyte abs 2.3 0.8 - 3.3 K/cumm [facility] Monocyte abs 1.1(H) 0.2 - 0.8 K/cumm [facility] Eosinophil abs 0.4 0.0 - 0.5 K/cumm [facility] Basophil abs 0.1 0.0 - 0.1 K/cumm [facility] Neutrophil pct 63.6 % [facility] Comment: Interpretive Data Percent cell count reference ranges are not reported, since discordance with absolute values may lead to misinterpretation of CBC data. Current Interpretive Data was last revised on 2017. Imm gran pct 0.4 % [facility] Comment: Interpretive Data Percent cell count reference ranges are not reported, since discordance with absolute values may lead to misinterpretation of CBC data. Current Interpretive Data was last revised on 2017. Lymphocyte pct 21.7 % [facility] Comment: Interpretive Data Percent cell count reference ranges are not reported, since discordance with absolute values may lead to misinterpretation of CBC data. Current Interpretive Data was last revised on 2017. Monocyte pct 10.3 % [facility] Comment: Interpretive Data Percent cell count reference ranges are not reported, since discordance with absolute values may lead to misinterpretation of CBC data. Current Interpretive Data was last revised on 2017. Eosinophil pct 3.4 % [facility] Comment: Interpretive Data Percent cell count reference ranges are not reported, since discordance with absolute values may lead to misinterpretation of CBC data. Current Interpretive Data was last revised on 2017. Basophil pct 0.6 % [facility] Comment: Interpretive Data Percent cell count reference ranges are not reported, since discordance with absolute values may lead to misinterpretation of CBC data. Current Interpretive Data was last revised on 2017. Blood 08/26/2024 10:5 6 AM SENIOR CENTER MANAGER 08/26/2024 10:56 AM SENIOR CENTER MANAGER Stefano Hernandez MD LAB BLOOD ORDERABLES Final Result [facility] Department [place] [address] * (ABNORMAL) CBC with auto differential (08/26/2024 10:56 AM SENIOR CENTER MANAGER) WBC 10.4(H) 3.8 - 9.9 K/cumm Comment:Testing performed by : [address] [address] Hgb 10.1(L) 13.0 - 17.5 g/dL [facility] Comment:Testing performed by : [address] [address] Hct 31.5(L) 38.9 - 50.3 % [facility] Comment:Testing performed by : [address] [address] [address] 435(H) 150 - 400 K/cumm [facility] Comment:Testing performed by : [address] [address] MPV 8.1(L) 9.1 - 12.3 fL [facility] Blood 08/26/2024 10:5 6 AM SENIOR CENTER MANAGER 08/26/2024 10:56 AM SENIOR CENTER MANAGER Stefano Hernandez MD LAB BLOOD ORDERABLES Final Result Performing Organization Address [facility] Co de Phone Number [facility] [place] [address] * (ABNORMAL) Total testosterone (08/26/2024 10:56 AM SENIOR CENTER MANAGER) Pathologist [facility] Testosterone 184.0(L) 193.0 - 740.0 ng/dL Blood 08/26/2024 10:5 6 AM SENIOR CENTER MANAGER 08/26/2024 12:55 PM SENIOR CENTER MANAGER Stefano Hernandez MD LAB BLOOD ORDERABLES Final Result Performing Organization Address City/[facility] de Phone Number [facility] [place] [address] * (ABNORMAL) PSA diagnostic (08/26/2024 10:56 AM SENIOR CENTER MANAGER) PSA-Total 19.40(H) <=6.20 ng/mL Comment: Interpretive Data [...] revised 21. Blood 08/26/2024 10:5 6 AM SENIOR CENTER MANAGER 08/26/2024 12:55 PM SENIOR CENTER MANAGER us Stefano Hernandez MD LAB BLOOD ORDERABLES Final Result [facility] Department [place] [address] * (ABNORMAL) Comprehensive metabolic panel (08/26/2024 10:56 AM SENIOR CENTER MANAGER) Sodium 131(L) 135 - 145 mmol/L Comment:Testing performed by : [facility], [address] [place] [id number] Potassium, pl 4.6 3.3 - 4.9 mmol/L [...] 2022. Calcium 9.7 8.5 - 10.3 mg/dL [facility] Bilirubin, total 0.2 0.1 - 1.2 mg/dL [facility] Comment:Repeated and verifie d. Protein, pl 7.9 6.5 - 8.5 g/dL [facility] Albumin 4.3 3.5 - 5.0 g/dL [facility] Alk phos 79 40 - 130 Units/L [facility] ALT 9 7 - 55 Units/L [facility] AST 17 10 - 50 Units/L [facility] Blood 08/26/2024 10:5 6 AM SENIOR CENTER MANAGER 08/26/2024 10:56 AM SENIOR CENTER MANAGER us Stefano Hernandez MD LAB BLOOD ORDERABLES Final Result [facility] Department [place] [address] * Total testosterone (08/19/2024 11:56 AM SENIOR CENTER MANAGER) Testosterone 282.00 193.00 - 740.00 ng/dL Blood 08/19/2024 11:5 6 AM SENIOR CENTER MANAGER 08/19/2024 2:40 PM SENIOR CENTER MANAGER us Pardeep Tapia MD LAB BLOOD ORDERABLES Final Result [facility] [address] [facility] Department [place] [address] * PET/CT Prostate Cancer PSMA Skull to Thigh (08/09/2024 1:29 PM SENIOR CENTER MANAGER) Anatomical Region Laterality Modality N/A Positron Emissio n Tomography (PET) 08/09/2024 2:20 PM SENIOR CENTER MANAGER Impressions 08/09/2024 2:55 PM SENIOR CENTER MANAGER 1. Intensely PSMA-avid enlarged and irregular prostate [...] by: DO Lynn Bailey 08/09/2024 2:55 PM SENIOR CENTER MANAGER EXAMINATION: PSMA-PET/CT DATE OF STUDY: 08/09/2024 SCANNER: [facility] RADIOPHARMACEUTICAL: 10.49 mCi F-18 DCFPyL (Piflufolastat) i.v. [...] obtained. The study was interpreted on the [employer] workstation. The total scanned area was mid [...] PSMA-PET/CT DATE OF STUDY: 08/09/2024 SCANNER: [facility] RADIOPHARMACEUTICAL: 10.49 mCi F-18 DCFPyL (Piflufolastat) i.v. [...] obtained. The study was interpreted on the [employer] workstation. The total scanned area was mid [...] Electronically signed by: Jay Hughes DO us Sethsef Camron Tapia MD IMG PET PROCEDURES F inal Result * US Guidance Intraoperative (07/30/2024 8:53 AM SENIOR CENTER MANAGER) Anatomical Region Laterality Modality Entire body N/A Ultrasound 07/30/2024 3:53 PM SENIOR CENTER MANAGER Narrative 07/30/2024 3:54 PM SENIOR CENTER MANAGER EXAM DESCRIPTION: US GUIDANCE INTRAOPERATIVE REASON FOR [...] Duglas Wills M.D. AG T: Report ID: [id number] Reading Location: [id number] Procedure Note Duglas Wills MD - 07/30/2024 [...] Duglas Wills M.D. AG T: Report ID: [id number] Reading Location: [id number] Pardeep Tapia MD IMG US PROCEDURES Fi nal Result * POCT glucose (07/30/2024 8:48 AM SENIOR CENTER MANAGER) Glucose, POC 135 70 - 199 mg/dL Glucose comment 1 Use This Result [facility] Blood 07/30/2024 8:48 AM SENIOR CENTER MANAGER 07/30/2024 8:48 AM SENIOR CENTER MANAGER Pardeep Tapia MD LAB POCT ORDERABLES - DEVICE Final Result [facility] [address] Department of Laboratories [place] [id number] * Surgical pathology (07/30/2024 8:21 AM SENIOR CENTER MANAGER) Tissue specimen (specimen) (Bladder, biopsy) 07/30/2024 8:21 AM SENIOR CENTER MANAGER Tissue specimen (specimen) (Prostate, Needle Biopsy) 07/30/2024 8:21 AM SENIOR CENTER MANAGER Tissue specimen (specimen) (Prostate, Needle Biopsy) 07/30/2024 8:22 AM SENIOR CENTER MANAGER Narrative PATHOLOGY [facility] - 08/02/2024 2:17 PM SENIOR CENTER MANAGER [facility] Department of Pathology [address] [place] [id number] Note to Patients: This report may contain [...] : 1945 (Age: 78) Gender: M Address: [address] [place] [id number] Hospital #: [id number] Service: Surgery Location: Patient Type: [facility] OUTPATIENT Taken: 07/30/2024 Received: 07/30/2024 Accessioned: 07/30/2024 Reported: 08/02/2024 Physician(s): MD Sukhdeep Peoples M.D. Diagnosis: A. Bladder, biopsy: - Adenocarcinoma, consistent with prostatic primary. See comment B. Prostate, right lobe, biopsy: - Adenocarcinoma, Ellerslie score 9 (4+5), prognostic group 5, involving 7 of 8 fragmented cores, and approximately 80% of the total core tissue - Cribriform pattern present - Perineural invasion present C. Prostate, left lobe, biopsy: - Adenocarcinoma, Ana score 9 [...] C3. Jar 0. jjb/07/30/2024 11:46 SHARDA May[place], PA ([facility]) Microscopic slide review and interpretation for this case was performed at [facility], Department of Surgical Pathology, [address] [facility] [place], [place] [id number] [address] CLIA # [id number] The NKX3.1 test was performed at [facility] Department of Surgical Pathology, [address] [place] [address]. us Yousef Camron Tapia MD LAB PATHOLOGY ORDERA BLES Final Result PATHOLOGY [facility] * ND AN ELECTIVE ENDOTRACHEAL AIRWAY, ND AN PROCEDURE PLACEHOLDER (07/30/2024 7:50 AM SENIOR CENTER MANAGER) Narrative Adelia Ulloa CRNA - 07/30/2024 7:50 AM SENIOR CENTER MANAGER Adelia Ulloa CRNA 07/30/2024 7:52 AM Airway Patient location: OR Urgency: elective Indications for airway management: anesthesia Difficult airway: no Staff: Placed by: JONATHON: Adelia Ulloa CRNA Emergent airway documentation: Risks [...] other Number of attempts: 1no Additional comments: [place] tape Kareem Rees MD ANESTHESIA ORDERABLES Fi nal Result * POCT glucose (07/30/2024 6:22 AM SENIOR CENTER MANAGER) Glucose, POC 122 70 - 199 mg/dL Glucose comment 1 Use This Result [facility] Blood 07/30/2024 6:22 AM SENIOR CENTER MANAGER 07/30/2024 6:22 AM SENIOR CENTER MANAGER Pardeep Tapia MD LAB POCT ORDERABLES - DEVICE Final Result [facility] [address] [facility] Department [place] [address] from Last 3 Months Insurance FORMERLY [facility] MEDICARE [facility] MEDICARE Address: [facility] [id number] [place] [id number] AET MEDICARE Advance Directives For more information, please contact: [phone] * Full Code (Latest Code Status on File) Date Activated Date Inactivated Comments 09/09/2024 1:24 AM 09/11/2024 3:54 PM Care Teams Mathematical Technician Relationship Specialty Start Date End Date Sukhdeep Martinez MD [address] [facility] [address] PCP - General Family Medicine 06/05/24 Stefano Hernandez MD [address] [facility] [address] DIV IM MEDICAL ONCOLOGY, [facility] [place] [address] Medical Oncologist/Home Theater Experience Expert Medical Oncology 08/07/24 Pardeep Tapia MD [address] [facility] [address] [place], [place] [id number] Consulting Physician Urology 08/07/24 Sidney Arias MD [address] [facility] [address] [place] [address] Radiation Oncologist Radiation Oncology 08/21/24 Raad Ahuja MD [address] [facility] [address] [place] [address] Consulting Physician Pain Management 09/20/24
[2024-10-19 18:04] LABS: Influenza A QL RT-PCR Negative (Negative); Influenza B QL RT-PCR Negative (Negative); RSV RNA, RT-PCR Negative (Negative); SARS-CoV-2 RNA PCR Negative (Negative)
== END 2024-10-19 19:14 | disposition home or self-care (01) ==
PROVIDERS: Emergency Provider Emergency Medicine; PCP Family Medicine
DX: I95.1 Orthostatic hypotension (principal); C61 Malignant neoplasm of prostate; C79.11 Secondary malignant neoplasm of bladder; C79.51 Secondary malignant neoplasm of bone; E86.0 Dehydration; Z79.891 Long term (current) use of opiate analgesic; Z20.822 Contact with and (suspected) exposure to COVID-19
CPT/HCPCS: 71045; 87637; 93005; 99284